=== PATIENT | male | born 1960 | race Caucasian/White ===

== ENCOUNTER 2018-04-19 09:42 | Outpatient (REF) | payer MEDICAID, SELFPAY ==
[2018-04-19 13:25] LABS: Hemoglobin A1C 6.7 % (4.5-6.2)
[2018-04-20 15:41] LABS: Fructosamine 208 mcmol/L (200 - 285)
== END 2018-04-19 10:02 ==
LOC: NCHCN 09:42
PROVIDERS: PCP Family Medicine; Visit Provider Family Medicine
DX: E11.9 Type 2 diabetes mellitus without complications (principal); R73.9 Hyperglycemia, unspecified
CPT/HCPCS: 82985; 83036

== ENCOUNTER 2018-07-30 06:23 | Day surgery (SDC) | payer MEDICAID, SELFPAY ==
--- NOTE | 2018-07-27 08:52 | DSU.FORM ---
Attempted to call pat with arrival time. Patient phone has been disconnected. Josie at Dr. Manzanares office is aware. Place a call to patient contact his sister. She will TRY to contact patient with info.
--- NOTE | 2018-07-29 12:48 | POEE_ITS ---
History of Present Illness Chief Complaint: Progressive decreased vision, right eye Narrative: The patient is a 57-year-old male with history of progressive decreased vision in both eyes at both distance and near. On examination he was noted to have significant bilateral nuclear and cortical cataracts with visual acuity of 20/100 OD, 20/80 OS. The option of cataract surgery was offered to the patient and he wished to proceed. NOTE: The Chief Complaint, HPI, Past Medical History, Past Surgical History, Family History, Social History, Medications, and complete Ophthalmic Exam with detailed Assessment and Plan have already been documented in the patient's outpatient ophthalmic record and are not covered again in detail here. 57-year-old 57-year-old [facility] Medical History Cortical cataract of right eye (Acute) Nuclear sclerotic cataract of right eye (Acute) Social History Smoking/Tobacco Use Status: Current every day Meds Home Medications Medication Instructions Recorded Confirmed Type aspirin [Lo-Dose Aspirin] 81 mg PO DAILY 07/14/13 07/26/18 History glipizide 10 mg PO BID 07/14/13 06/27/14 History insulin glargine [Lantus] 42 - 44 units SQ HS 07/14/13 07/26/18 History lisinopril 10 mg PO HS 07/14/13 07/26/18 History metformin [Glucophage] 1,000 mg PO BID 07/14/13 07/26/18 History sitagliptin [Januvia] 100 mg PO HS 07/14/13 07/26/18 History simvastatin 40 mg PO HS 09/26/13 07/26/18 History diclofenac potassium 50 mg PO BID PRN PRN #14 tablet 06/27/14 Rx insulin aspart U-100 [Novolog] units SQ DIRECTED 06/27/14 06/27/14 History diazepam 5 mg PO BID 07/26/18 07/26/18 History Allergies Allergy/AdvReac Type Severity Reaction Status Date / Time No Known Allergies Allergy Unverified 06/27/14 09:25 Exam OCULAR EXAM:: Most recent ocular examination is significant for uncorrected visual acuity of 20/100 OD, 20/80 OS. Best corrected vision is 20/70 in each eye. Intraocular pressure is 17 OD, 16 OS. Extraocular motility is normal. Pupils equal, round, and reactive without afferent pupillary defect slit-lamp examination is significant for pupils dilating only to 3.5 mm OU. 3+ yellow nuclear cataract OU with 1+ cortical cataract. Funduscopic examination reveals disc cupping of 0.25 OU with normal vessels, macula, peripheral retina and vitreous. BRIGHTNESS ACUITY TESTING (BAT):: Brightness acuity testing of the right eye off 20/100. Low is 20/100. Medium is a 20/200. High is 20/400. Assessment and Plan (1) Nuclear sclerotic cataract of right eye: Current visit: No Status: Acute Assessment: Visually significant cataract, right eye. Plan: Cataract extraction with intraocular lens implantation, right eye (2) Cortical cataract of right eye: Current visit: No Status: Acute Assessment: Visually significant cataract, right eye. Plan: Cataract extraction with intraocular lens implantation, right eye Note: NOTE:: The details of the planned surgery, including the risks, indications,limitations,expectations,outcome and possible complications were explained to the patient. The patient understands the complications including, but not limited to: infection, hemorrhage, posterior dislocation of the lens or nuclear fragments which may require the intervention of a vitreoretinal surgeon, possible loss of the eye, or from anesthetic complications. The patient has been made aware of the option of not having surgery, that vision following surgery may not be equal to that prior to surgery, and that the planned surgery may not achieve the intended results. Following this discussion, which the patient appeared to understand, the patient wishes to proceed with cataract surgery with lens implantation of the affected eye to improve and maximize vision.
--- NOTE | 2018-07-29 18:35 | W.PM.DSUDISC ---
Discharge Plan Discharge Details Attending Provider: Derek Manzanares Primary Care Provider: Jamilah Harman Home Meds and New Rx's Prescriptions: No Action Lantus U-100 Insulin 100 UNIT/ML solution 42 - 44 units SQ HS RF: 0 glipizide 10 MG tablet 10 mg PO BID RF: 0 aspirin [Lo-Dose Aspirin] 81 MG tablet,delayed release (DR/EC) 81 mg PO DAILY RF: 0 metformin [Glucophage] 1,000 MG tablet 1,000 mg PO BID RF: 0 lisinopril 5 MG tablet 10 mg PO HS RF: 0 Januvia 100 MG tablet 100 mg PO HS RF: 0 simvastatin 20 MG tablet 40 mg PO HS RF: 0 Novolog PenFill U-100 Insulin 100 UNIT/ML cartridge SQ DIRECTED RF: 0 diclofenac potassium 50 MG tablet 50 mg PO BID PRN PRNQty: 14 RF: 0 diazepam 5 mg Tablet 5 mg PO BID RF: 0 Discharge Instructions Stand Alone Forms: Post-op Topical Cataract, Tammie Obregon (DSU) DS: Diagnosis Discharge Diagnosis (1) Status post cataract extraction and insertion of intraocular lens of right eye: Status: Chronic
[2018-07-30 06:42] VITALS: BP 132/72; PULSE 76; RESP 18; TEMP 36.3; O2SAT 94
[2018-07-30] MEDS: Tetracaine 0.5% 4 ML BTL OD ×6 (06:50→08:03)
[2018-07-30] MEDS: Tropicam./Phenyleph. (1/2.5%) 5 ML BTL OD ×3 (06:51→06:58)
[2018-07-30] MEDS: Lidocaine 2% Jelly 6 ML SYR (07:33)
[2018-07-30] MEDS: Povidone-Iodine Ophth 30 ML BTL (07:33)
[2018-07-30] MEDS: Lidocaine 1% Pres-Free 5 ML VIAL (07:40)
[2018-07-30] MEDS: Balanced Salt Soln.-PLUS 500 ML BAG (07:41)
[2018-07-30] MEDS: Duovisc Viscoelastic System EACH 1 EACH (07:42)
[2018-07-30] MEDS: Trypan Blue 0.06% 0.5 ML SYR (07:43)
--- NOTE | 2018-07-30 08:18 | ROE_ITS ---
Date of service: 07/30/18 Time of Service: 08:17 Operative Note DATE OF PROCEDURE: 07/30/18 PRE-OP DIAGNOSIS: Cataract, right eye, with poor red reflex PROCEDURE: Cataract extraction using phacoemulsification with intraocular lens implantation, right eye, using capsular staining with Vision Blue SURGEON: Derek Manzanares ANESTHESIA: MAC (with local sub-tenon's anesthetic injection) PATHOLOGY: none sent COMPLICATIONS: None Patient was transported to: same day Patient's condition: stable Implants: Brendan and Brendan / [employer] Tecnis [id number] Indications: Progressive visual loss due to cataract, right eye Procedure Description: CATARACT SURGERY OPERATIVE REPORT PREOPERATIVE DIAGNOSIS: 1. Dense nuclear/cortical cataract, right eye 2. Poor red reflex secondary to #1 POSTOPERATIVE DIAGNOSIS: Same OPERATION: 1. Cataract extraction using phacoemulsification with posterior chamber intraocular lens implant, right eye. 2. Capsular staining with Vision Blue IOL: IOL Shipping/Receiving Clerk/Model: Brendan & Brendan / EDMUNDO Tecnis [id number] IOL Power: + 22.0 diopters IOL Serial Number: [id number] Optic Diameter: 6.0mm Haptic/Overall Diameter: 13.0mm PHACO INFO: Doc adicate timeadsurion Vision System with OZil and Active Fluidics Cumulative Dispersed Energy (CDE): 14.61 seconds SURGEON: Derek Manzanares MD, [place] ANESTHESIA: Monitored Anesthesia Care (MAC), with local sub-tenon's anesthetic infiltration COMPLICATIONS: None SPECIMENS: None INDICATIONS FOR PROCEDURE: The patient is a 57-year old male with history of aggressive decreased vision in both eyes secondary to the development of significant nuclear and cortical cataract. Visual acuity measures 20/100 in the right eye. He is significantly symptomatic that he desired cataract surgery and attempt to improve and maximize his vision. PROCEDURE: The correct surgical eye was identified and marked as the right eye and the pupil was dilated in the preoperative area using mydriatics, cycloplegics, and NSAIDS (except in aspirin allergic patients). No sedation was given. The patient was brought to the operating room where cardiopulmonary monitoring was instituted and surgical time-out was performed, confirming the correct operative eye and IOL power. The pupil was noted to dilate to 6 mm. Topical anesthesia was administered and ophthalmic povidone-iodine 5% was instilled into the conjunctival fornices. Lidocaine gel was applied to the cornea and the larry-ocular area was prepped with Betadine 10% solution and draped in the usual sterile fashion for intraocular surgery, including an aperture drape. A Tegaderm transparent film dressing was cut in half and used to cover the lashes and lid margins. Care was taken to sequester the lashes and lid margins under the Tegaderm dressing. A lid speculum was placed between the lids of the operative eye and the Glenna-Lianet operating microscope was maneuvered into position. Flash scissors were then used to make a conjunctival buttonhole approximately 6mm posterior to the limbus in the inferonasal quadrant. Blunt dissection was carried out to expose bare sclera, and a blunt-tipped sub-tenon?s anesthesia cannula was introduced and passed posteriorly along the globe where non- preserved plain lidocaine was injected into posterior sub-Tenon?s space. A si deport knife was used to make a paracentesis port at the 7:00 position. Air was injected into the anterior chamber, followed by Vision Blue, which was painted over the anterior capsule and then irrigated out with BSS. The anterior chamber was filled with Viscoat. A 2.4mm keratome knife was used to create a half- thickness groove at the limbus and then to construct a three-plane near-clear corneal tunnel extending 2.0mm into clear cornea at the 10:00 position. A flap was raised on the anterior capsule and capsulorhexis forceps were used to complete a continuous curvilinear capsulorhexis of 5.0 mm. Balanced salt solution was then used to perform cortical cleaving hydrodissection and nuclear hydrodelineation until the lens could be freely rotated within the capsular bag. The lens nucleus was then disassembled and removed within the capsular bag and iris plane using phacoemulsification. The pupil constricted to 3 mm during phacoemulsification, making visualization difficult. Abundant Viscoat was used to help in pupillary mydriasis and to protect the corneal endothelium during nuclear disassembly/removal. Residual cortical material was removed using the Transformer I/A handpiece. The posterior capsule was carefully polished to remove as much residual lens epithelial cells as safely possible. The capsular bag was then inflated and the anterior chamber deepened with Provisc. The lens implant described above was inserted into the capsular bag using the EDMUNDO [place] Injector. A Kuglen hook was used to dial the IOL into position. Residual viscoelastic was then removed first from posterior to the IOL, then from the anterior chamber using the I/A handpiece. The lens implant was noted to center nicely within the capsular bag. The incisions were stromally hydrated, and the anterior chamber was reformed using BSS. Then 0.4cc of moxifloxacin 1.5mg/ml were injected into the capsular bag and anterior chamber. The incisions were checked with a Weck spear and found to be secure. Several drops of ophthalmic povidone-iodine 5% were then applied to the eye followed by two drops of Imprimis combination moxifloxacin/dexamethasone solution. The drapes were removed and a clear plastic protective eye shield was placed over the eye. The patient was then returned to Same Day Surgery in stable condition.
[2018-07-30 08:40] VITALS: BP 134/78; PULSE 71; RESP 18; TEMP 36.7; O2SAT 94
== END 2018-07-30 08:45 | disposition home or self-care (01) ==
LOC: SUR 06:23
PROVIDERS: PCP Family Medicine; Visit Provider Ophthalmology
PROC: (CPT 66982; principal; 2018-07-30 07:30)
DX: H25.811 Combined forms of age-related cataract, right eye (principal); H35.89 Other specified retinal disorders; J44.9 Chronic obstructive pulmonary disease, unspecified; E11.9 Type 2 diabetes mellitus without complications; Z79.4 Long term (current) use of insulin; I10 Essential (primary) hypertension; G47.33 Obstructive sleep apnea (adult) (pediatric)
CPT/HCPCS: 66982; V2632

== ENCOUNTER 2018-08-13 08:17 | Day surgery (SDC) | payer MEDICAID, SELFPAY ==
--- NOTE | 2018-08-12 18:43 | POEE_ITS ---
History of Present Illness Chief Complaint: Progressive decreased vision, left eye Narrative: Patient is a 57-year-old male with history of progressive decreased vision in both eyes at both distance and near. On examination he was noted to have bilateral nuclear and cortical cataracts with visual acuity of 20/100 OD, 20/80 OS. The option of cataract surgery was offered to the patient and he wished to proceed. He underwent cataract surgery in the right eye on 07/30/2018. Postoperatively he has regained uncorrected vision of 20/40 in the right eye. He now presents for cataract surgery in the left eye. NOTE: The Chief Complaint, HPI, Past Medical History, Past Surgical History, Family History, Social History, Medications, and complete Ophthalmic Exam with detailed Assessment and Plan have already been documented in the patient's outpatient ophthalmic record and are not covered again in detail here. [facility] Medical History Cortical cataract of left eye (Acute) Nuclear sclerotic cataract of left eye (Acute) Cortical cataract of right eye (Resolved) Nuclear sclerotic cataract of right eye (Resolved) Surgical History Status post cataract extraction and insertion of intraocular lens of right eye (Chronic 07/30/18) Social History Smoking and Tabacco status: Current every day Meds Home Medications Medication Instructions Recorded Confirmed Type aspirin [Lo-Dose Aspirin] 81 mg PO DAILY 07/14/13 07/30/18 History glipizide 10 mg PO BID 07/14/13 06/27/14 History insulin glargine [Lantus] 42 - 44 units SQ HS 07/14/13 07/30/18 History lisinopril 10 mg PO HS 07/14/13 07/30/18 History metformin [Glucophage] 1,000 mg PO BID 07/14/13 07/30/18 History sitagliptin [Januvia] 100 mg PO HS 07/14/13 07/30/18 History simvastatin 40 mg PO HS 09/26/13 07/30/18 History diclofenac potassium 50 mg PO BID PRN PRN #14 tablet 06/27/14 Rx insulin aspart U-100 [Novolog] units SQ DIRECTED 06/27/14 06/27/14 History diazepam 5 mg PO BID 07/26/18 07/30/18 History Allergies Allergy/AdvReac Type Severity Reaction Status Date / Time No Known Allergies Allergy Unverified 07/30/18 06:34 Exam OCULAR EXAM:: Most recent ocular examination revealed uncorrected vision of 20/40 OD, 20/80 OS. Intraocular pressure was 16 OD, 16 OS. Extraocular motility is normal. Pupils equal, round, and reactive without afferent pupillary defect. Slit-lamp examination is significant for pupils dilating only to 3.5 mm OU. There is a well-positioned PCIOL OD with trace posterior capsular haze. In the left eye a 3+ yellow nuclear sclerotic cataract is present with 1+ cortical cataract. Dilated funduscopic examination shows disc cupping of 0.25 OU with normal vessels, macula and vitreous. Background diabetic retinopathy is present in the mid periphery OU. BRIGHTNESS ACUITY TESTING (BAT):: Brightness acuity testing of the left eye off is 20/80. Low is 20/100. Medium is 20/200. High is 20/400. Assessment and Plan (1) Nuclear sclerotic cataract of left eye: Current visit: No Status: Acute Assessment: Visually significant cataract, left eye. Plan: Cataract extraction with intraocular lens implantation, left eye (2) Cortical cataract of left eye: Current visit: No Status: Acute Assessment: Visually significant cataract, left eye. Plan: Cataract extraction with intraocular lens implantation, left eye Note: NOTE:: The details of the planned surgery, including the risks, indications,limitations,expectations,outcome and possible complications were explained to the patient. The patient understands the complications including, but not limited to: infection, hemorrhage, posterior dislocation of the lens or nuclear fragments which may require the intervention of a vitreoretinal surgeon, possible loss of the eye, or from anesthetic complications. The patient has been made aware of the option of not having surgery, that vision following surgery may not be equal to that prior to surgery, and that the planned surgery may not achieve the intended results. Following this discussion, which the patient appeared to understand, the patient wishes to proceed with cataract surgery with lens implantation of the affected eye to improve and maximize vision.
[2018-08-13 08:37] VITALS: BP 188/96; PULSE 76; RESP 16; TEMP 35.4; O2SAT 98
[2018-08-13] MEDS: Tetracaine 0.5% 4 ML BTL OS ×4 (08:59→11:04)
[2018-08-13] MEDS: Tropicam./Phenyleph. (1/2.5%) 5 ML BTL OS ×3 (08:59→09:08)
[2018-08-13] MEDS: Trypan Blue 0.06% 0.5 ML SYR (11:03)
[2018-08-13] MEDS: Balanced Salt Soln.-PLUS 500 ML BAG (11:05)
[2018-08-13] MEDS: Lidocaine 2% Jelly 6 ML SYR (11:05)
[2018-08-13] MEDS: Duovisc Viscoelastic System EACH 1 EACH ×2 (11:06→11:37)
[2018-08-13] MEDS: Povidone-Iodine Ophth 30 ML BTL (11:07)
[2018-08-13] MEDS: Lidocaine 1% Pres-Free 5 ML VIAL (11:08)
--- NOTE | 2018-08-13 12:00 | W.PM.DSUDISC ---
Discharge Plan Discharge Details Attending Provider: Derek Manzanares Primary Care Provider: Jamilah Harman Home Meds and New Rx's Prescriptions: No Action Lantus U-100 Insulin 100 UNIT/ML solution 42 - 44 units SQ HS RF: 0 aspirin [Lo-Dose Aspirin] 81 MG tablet,delayed release (DR/EC) 81 mg PO DAILY RF: 0 metformin [Glucophage] 1,000 MG tablet 1,000 mg PO BID RF: 0 lisinopril 5 MG tablet 10 mg PO HS RF: 0 Januvia 100 MG tablet 100 mg PO HS RF: 0 simvastatin 20 MG tablet 40 mg PO HS RF: 0 Novolog PenFill U-100 Insulin 100 UNIT/ML cartridge SQ DIRECTED RF: 0 diclofenac potassium 50 MG tablet 50 mg PO BID PRN PRNQty: 14 RF: 0 Discharge Instructions Stand Alone Forms: Post-op Topical Cataract, Tammie Obregon (DSU) DS: Diagnosis Discharge Diagnosis (1) Status post cataract extraction and insertion of intraocular lens of left eye: Status: Chronic
--- NOTE | 2018-08-13 12:01 | W.PM.OP ---
Date of service: 08/13/18 Time of Service: 12:01 Operative Note PRE-OP DIAGNOSIS: Cataract with poor red reflex and poorly dilating pupil, left eye PROCEDURE: Cataract extraction using phacoemulsification with intraocular lens implant, left eye, with pupillary dilation using Malyugin Ring and capsular staining using Vision Blue SURGEON: Derek Manzanares ANESTHESIA: MAC (with sub-tenon's local infiltration) ESTIMATED BLOOD LOSS: 0 PATHOLOGY: none sent COMPLICATIONS: None Patient was transported to: same day Patient's condition: stable Implants: Brendan and Brendan / [employer] Tecnis [id number] Indications: Progressive decreased vision due to cataract, left eye Procedure Description: CATARACT SURGERY OPERATIVE REPORT PREOPERATIVE DIAGNOSIS: 1. Dense nuclear/cortical cataract, left eye 2. Poorly dilating pupil, left eye 3. Poor red reflex, left eye POSTOPERATIVE DIAGNOSIS: Same OPERATION: 1. Cataract extraction using phacoemulsification with posterior chamber intraocular lens implant, left eye. 2. Pupillary dilation and iris stabilization using Malyugin Ring 3. Capsular staining with VIsion Blue IOL: IOL Leather Worker/Model: Brendan & Brendan / EDMUNDO Tecnis [id number] IOL Power: + 22.50 diopters IOL Serial Number: [id number] Optic Diameter: 6.0mm Haptic/Overall Diameter: 13.0mm PHACO INFO: Doc Evgenurion Vision System with OZil and Active Fluidics Cumulative Dispersed Energy (CDE): 14.17 seconds SURGEON: Derek Manzanares MD, [place] ANESTHESIA: Monitored Anesthesia Care (MAC), with local sub-tenon's anesthetic infiltration COMPLICATIONS: None SPECIMENS: None INDICATIONS FOR PROCEDURE: The patient is a 57-year-old male with history of diminished visual acuity in both eyes. He was noted to have dense bilateral nuclear cataracts with moderate cortical cataracts as well. He has already undergone cataract surgery in his right eye and now presents for cataract surgery in the left eye. PROCEDURE: The correct surgical eye was identified and marked as the left eye and the pupil was dilated in the preoperative area using mydriatics, cycloplegics, and NSAIDS (except in aspirin allergic patients). Dilated pupil size was 5.0 mm. No IV or oral sedation was given. The patient was brought to the operating room where cardiopulmonary monitoring was instituted and surgical time-out was performed, confirming the correct operative eye and IOL power. Optimal positioning was challenging. Topical anesthesia was administered and ophthalmic povidone-iodine 5% was instilled into the conjunctival fornices. Lidocaine gel was applied to the cornea and the larry-ocular area was prepped with Betadine 10% solution and draped in the usual sterile fashion for intraocular surgery, including an aperture drape. A Tegaderm transparent film dressing was cut in half and used to cover the lashes and lid margins. Care was taken to sequester the lashes and lid margins under the Tegaderm dressing. A lid speculum was placed between the lids of the operative eye and the Glenna-Lianet operating microscope was maneuvered into position. Flash scissors were then used to make a conjunctival buttonhole approximately 6mm posterior to the limbus in the inferonasal quadrant. Blunt dissection was carried out to expose bare sclera, and a blunt-tipped sub-tenon?s anesthesia cannula was introduced and passed posteriorly along the globe where non-preserved plain lidocaine was injected into posterior sub-Tenon?s space. A sideport knife was used to make a paracentesis port superiorly/superiortemporally and air was injected into anterior chamber, followed by Vision Blue, which was painted over the anterior capsule and then irrigated out with BSS. The anterior chamber was then filled with Viscoat. A 2.4mm keratome knife was used to create a half-thickness groove at the limbus and then to construct a three-plane near-clear corneal tunnel extending 2.0mm into clear cornea temporally. A 7.0 mm Malyugin Ring was then inserted into the pupillary space and engaged with the Kuglen hook. A flap was raised on the anterior capsule and capsulorhexis forceps were used to complete a continuous curvilinear capsulorhexis of 5.0 mm. The patient's eye moved wildly throughout the procedure, making surgery more challenging Balanced salt solution was then used to perform cortical cleaving hydrodissection and nuclear hydrodelineation until the lens could be freely rotated within the capsular bag. The lens nucleus was then disassembled and removed within the capsular bag and iris plane using phacoemulsification. Abundant Viscoat was necessary to protect the corneal endothelium. Nucleus splitters were used to help and cracking the dense nucleus and to reduce stress on the zonules. Residual cortical material was removed using the Doc Transformer I/A handpiece. The posterior capsule was carefully polished to remove as much residual lens epithelial cells as safely possible. The capsular bag was then inflated and the anterior chamber deepened with Provisc. The lens implant described above was inserted into the capsular bag using the Hit[employer] [place] Injector. A Kuglen hook was used to dial the IOL into position. The Malyugin Ring was removed in the reverse order of its insertion. Residual viscoelastic was then removed first from posterior to the IOL, then from the anterior chamber using the I/A handpiece. The lens implant was noted to center nicely within the capsular bag. The incisions were stromally hydrated, and the anterior chamber was reformed using BSS. Then 0.4cc of moxifloxacin 1.5mg/ml were injected into the capsular bag and anterior chamber. The incisions were checked with a Weck spear and found to be secure. Several drops of ophthalmic povidone-iodine 5% were then applied to the eye followed by two drops of Imprimis combination moxifloxacin/dexamethasone solution. The drapes were removed and a clear plastic protective eye shield was placed over the eye. The patient was then returned to Same Day Surgery in stable condition.
--- NOTE | 2018-08-13 12:04 | ROE_ITS ---
Date of service: 08/13/18 Time of Service: 12:01 Operative Note PRE-OP DIAGNOSIS: Cataract with poor red reflex and poorly dilating pupil, left eye PROCEDURE: Cataract extraction using phacoemulsification with intraocular lens implant, left eye, with pupillary dilation using Malyugin Ring and capsular staining using Vision Blue SURGEON: Derek Manzanares ANESTHESIA: MAC (with sub-tenon's local infiltration) ESTIMATED BLOOD LOSS: 0 PATHOLOGY: none sent COMPLICATIONS: None Patient was transported to: same day Patient's condition: stable Implants: Brendan [employer] Brendan / [employer] Tecnis [id number] Indications: Progressive decreased vision due to cataract, left eye Procedure Description: CATARACT SURGERY OPERATIVE REPORT PREOPERATIVE DIAGNOSIS: 1. Dense nuclear/cortical cataract, left eye 2. Poorly dilating pupil, left eye 3. Poor red reflex, left eye POSTOPERATIVE DIAGNOSIS: Same OPERATION: 1. Cataract extraction using phacoemulsification with posterior chamber intraocular lens implant, left eye. 2. Pupillary dilation and iris stabilization using Malyugin Ring 3. Capsular staining with VIsion Blue IOL: IOL Agricultural Pilot/Model: Brendan & Brendan / EDMUNDO Tecnis [id number] IOL Power: + 22.50 diopters IOL Serial Number: [id number] Optic Diameter: 6.0mm Haptic/Overall Diameter: 13.0mm PHACO INFO: Doc LIFEmeeurion Vision System with OZil and Active Fluidics Cumulative Dispersed Energy (CDE): 14.17 seconds SURGEON: Derek Manzanares MD, [place] ANESTHESIA: Monitored Anesthesia Care (MAC), with local sub-tenon's anesthetic infiltration COMPLICATIONS: None SPECIMENS: None INDICATIONS FOR PROCEDURE: The patient is a 57-year-old male with history of diminished visual acuity in both eyes. He was noted to have dense bilateral nuclear cataracts with moderate cortical cataracts as well. He has already undergone cataract surgery in his right eye and now presents for cataract surgery in the left eye. PROCEDURE: The correct surgical eye was identified and marked as the left eye and the pupil was dilated in the preoperative area using mydriatics, cycloplegics, and NSAIDS (except in aspirin allergic patients). Dilated pupil size was 5.0 mm. No IV or oral sedation was given. The patient was brought to the operating room where cardiopulmonary monitoring was instituted and surgical time-out was performed, confirming the correct operative eye and IOL power. Optimal positioning was challenging. Topical anesthesia was administered and ophthalmic povidone-iodine 5% was instilled into the conjunctival fornices. Lidocaine gel was applied to the cornea and the larry-ocular area was prepped with Betadine 10% solution and draped in the usual sterile fashion for intraocular surgery, including an aperture drape. A Tegaderm transparent film dressing was cut in half and used to cover the lashes and lid margins. Care was taken to sequester the lashes and lid margins under the Tegaderm dressing. A lid speculum was placed between the lids of the operative eye and the Glenna-Lianet operating microscope was maneuvered into position. Flash scissors were then used to make a conjunctival buttonhole approximately 6mm posterior to the limbus in the inferonasal quadrant. Blunt dissection was carried out to expose bare sclera, and a blunt-tipped sub-tenon?s anesthesia cannula was introduced and passed posteriorly along the globe where non- preserved plain lidocaine was injected into posterior sub-Tenon?s space. A sideport knife was used to make a paracentesis port superiorl y/superiortemporally and air was injected into anterior chamber, followed by Vision Blue, which was painted over the anterior capsule and then irrigated out with BSS. The anterior chamber was then filled with Viscoat. A 2.4mm keratome knife was used to create a half-thickness groove at the limbus and then to construct a three-plane near-clear corneal tunnel extending 2.0mm into clear cornea temporally. A 7.0 mm Malyugin Ring was then inserted into the pupillary space and engaged with the Kuglen hook. A flap was raised on the anterior capsule and capsulorhexis forceps were used to complete a continuous curvilinear capsulorhexis of 5.0 mm. The patient's eye moved wildly throughout the procedure, making surgery more challenging Balanced salt solution was then used to perform cortical cleaving hydrodissection and nuclear hydrodelineation until the lens could be freely rotated within the capsular bag. The lens nucleus was then disassembled and removed within the capsular bag and iris plane using phacoemulsification. Abundant Viscoat was necessary to protect the corneal endothelium. Nucleus splitters were used to help and cracking the dense nucleus and to reduce stress on the zonules. Residual cortical material was removed using the Doc Transformer I/A handpiece. The posterior capsule was carefully polished to remove as much residual lens epithelial cells as safely possible. The capsular bag was then inflated and the anterior chamber deepened with Provisc. The lens implant described above was inserted into the capsular bag using the EDMUNDO [place] Injector. A Kuglen hook was used to dial the IOL into position. The Malyugin Ring was removed in the reverse order of its insertion. Residual viscoelastic was then removed first from posterior to the IOL, then from the anterior chamber using the I/A handpiece. The lens implant was noted to center nicely within the capsular bag. The incisions were stromally hydrated, and the anterior chamber was reformed using BSS. Then 0.4cc of moxifloxacin 1.5mg/ml were injected into the capsular bag and anterior chamber. The incisions were checked with a Weck spear and found to be secure. Several drops of ophthalmic povidone-iodine 5% were then applied to the eye followed by two drops of Imprimis combination moxifloxacin/dexamethasone solution. The drapes were removed and a clear plastic protective eye shield was placed over the eye. The patient was then returned to Same Day Surgery in stable condition.
== END 2018-08-13 12:25 | disposition home or self-care (01) ==
LOC: SUR 08:18
PROVIDERS: PCP Family Medicine; Visit Provider Ophthalmology
PROC: (CPT 66982; principal; 2018-08-13 10:30)
DX: H25.812 Combined forms of age-related cataract, left eye (principal); H57.09 Other anomalies of pupillary function; H35.89 Other specified retinal disorders; J44.9 Chronic obstructive pulmonary disease, unspecified; E11.9 Type 2 diabetes mellitus without complications; Z79.4 Long term (current) use of insulin; I10 Essential (primary) hypertension; G47.33 Obstructive sleep apnea (adult) (pediatric)
CPT/HCPCS: 66982; V2632

== ENCOUNTER 2018-09-26 10:14 | Outpatient (REF) | payer MEDICAID, SELFPAY ==
[2018-09-26 11:41] LABS: HCT 41.4 % (40.0-50.0); HGB 14.3 g/dL (13.5-17.5); Mean Corp. HGB Concentration 34.5 g/dL (32.0-36.0); Mean Corpuscular Hemoglobin 30.8 pg (27.0-33.0); Mean Platelet Volume 10.7 fL (8.0-11.0); Platelet Count 201 x1000/uL (130-400); RBC 4.65 m/cumm (4.50-6.00); RBC Distribution Width 13.2 % (11.8-14.1); White Blood Cell Count 10.66 k/cumm (4.4-10.8)
[2018-09-26 12:14] LABS: ALT 34 U/L (12-78); AST 20 U/L (15-37); Albumin 3.7 g/dL (3.4-5.0); Alkaline Phosphatase 91 U/L (46-116); Anion Gap 10.6 mmol/L (3-11); BUN 23 mg/dL (7-18); Bilirubin, Total 0.4 mg/dL (0.2-1.0); CO2 27.4 mmol/L (21.0-32.0); CREATININE 1.15 mg/dL (0.70-1.30); Calcium 9.5 mg/dL (8.5-10.1); Chloride 100 mmol/L (98-107); Cholesterol 137 mg/dL (50-200); Glucose 91 mg/dL (70-100); HDL Cholesterol 33 mg/dL (40-60); LDL CHOLESTEROL 73 mg/dL (<100); Potassium 4.6 mmol/L (3.5-5.1); Sodium 138 mmol/L (136-145); TSH (W/Ref FT4) 1.73 uIU/mL (0.358-3.74); Total Protein 7.1 g/dL (6.4-8.2); Triglyceride 183 mg/dL (30-150)
[2018-09-26 12:25] LABS: Hemoglobin A1C 7.4 % (4.5-6.2)
== END 2018-09-26 10:34 ==
LOC: NCHCN 10:14
PROVIDERS: PCP Family Medicine; Visit Provider Family Medicine
DX: E11.9 Type 2 diabetes mellitus without complications (principal); I10 Essential (primary) hypertension; E78.5 Hyperlipidemia, unspecified; R60.0 Localized edema
CPT/HCPCS: 80053; 80061; 83721; 85027; 83036; 84443

== ENCOUNTER 2018-09-28 02:23 | Outpatient (CLI) | payer MEDICAID, SELFPAY ==
--- NOTE | 2018-09-28 08:15 | DI.RAD_ITS ---
SYMPTOM/DIAGNOSIS: LT SHOULDER PAIN, M25.512 LEFT SHOULDER: Six views were obtained. There is faint calcification which appears to be associated with supraspinatus tendon consistent with a calcific peritendinitis. Minimal hypertrophic degenerative change of the AC joint noted. Glenohumeral joint appears intact. No other significant bony abnormality is seen. CONCLUSION: 1. Mild AC joint DJD. 2. 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
== END 2018-09-28 02:43 ==
PROVIDERS: PCP Family Medicine; Visit Provider Family Medicine
DX: M25.512 Pain in left shoulder (principal); M75.82 Other shoulder lesions, left shoulder; M19.012 Primary osteoarthritis, left shoulder
CPT/HCPCS: 73030

== ENCOUNTER 2018-10-11 00:45 | Outpatient (CLI) | payer MEDICAID, SELFPAY ==
--- NOTE | 2018-10-11 10:30 | MERGE_ITS ---
*[facility]* *[facility]* [address] [place] [address] Date of study: 10/11/2018 Transthoracic Echocardiography M-mode, complete 2D, complete spectral Doppler, and color Doppler *STUDY CONCLUSIONS* Summary: 1. Left ventricle: The cavity size was normal. Wall thickness was increased in a pattern of moderate LVH. Systolic function was hyperdynamic. The estimated ejection fraction was 65-70%. Diastolic parameters were normal for age. There was no evidence of elevated ventricular filling pressure by Doppler parameters. 2. Mitral valve: There was mild regurgitation. 3. Left atrium: The atrium was moderately dilated. 4. Right ventricle: The cavity size was mildly dilated. Systolic function was normal. 5. Right atrium: The atrium was moderately dilated. 6. Atrial septum: No defect or patent foramen ovale was identified. 7. Pulmonary arteries: Pulmonary systolic pressure was in the range of 15mm Hg to 25mm Hg. 8. Inferior vena cava: The vessel was patent and normal in size. The respirophasic diameter changes were in the normal range (greater than or equal to 50%), consistent with normal central venous pressure. *PATIENT PRESENTATION* Height: 182.9cm ((72in) ) S/D Pressure: 144 / 76 Weight: 149.7kg ((329.3lb) ) BSA: 2.83m^2 Test start time: 10:35 AM. Test stop time: 11:35 AM. ORDERING Jamilah Harman REFERRING Jamilah Harman PERFORMING Unknown PERFORMING [facility] OPERATIONS INTELLIGENCE SUPERINTENDENT Shahla Koehler, (R)(CT), CHANEL *PROCEDURE DATA* Procedure information: This study was interpreted by [facility]. Pertinent images and digital data are archived for permanent storage and are available for subsequent review. Comparison was made to the study of 03/24/2014. Study status: Routine. Transthoracic echocardiography. M-mode, complete 2D, complete spectral Doppler, and color Doppler. A Transthoracic Echocardiogram was performed. Scanning was performed from the parasternal, apical, subcostal, and suprasternal notch acoustic windows. Images were obtained using an [id number] cardiac ultrasound machine. Image quality was adequate. Study completion: The patient tolerated the procedure well. History: PMH: Bilateral leg edema 660.0, Diabetes mellitus E11.9. *CARDIAC ANATOMY* Left ventricle: The cavity size was normal. Wall thickness was increased in a pattern of moderate LVH. Systolic function was hyperdynamic. The estimated ejection fraction was 65-70%. Diastolic parameters were normal for age. There was no evidence of elevated ventricular filling pressure by Doppler parameters. Aortic valve: Trileaflet. Doppler: There was no stenosis. There was no regurgitation. VTI ratio of LVOT to aortic valve: 0.88. Valve area (VTI): 3.2cm^2. Indexed valve area (VTI): 1.1cm^2/m^2. Peak velocity ratio of LVOT to aortic valve: 0.82. Valve area (Vmax): 3cm^2. Indexed valve area (Vmax): 1cm^2/m^2. Mean velocity ratio of LVOT to aortic valve: 0.8. Valve area (Vmean): 2.9cm^2. Indexed valve area (Vmean): 1cm^2/m^2. Mean gradient (S): 2.9mm Hg. Peak gradient (S): 4.2mm Hg. Aorta: Aortic root: The aortic root was normal in size. Ascending aorta: The ascending aorta was normal in size. Mitral valve: Doppler: There was no evidence for stenosis. There was mild regurgitation. Valve area by pressure half-time: 4.7cm^2. Indexed valve area by pressure half-time: 1.7cm^2/m^2. Peak gradient (D): 2mm Hg. Left atrium: The atrium was moderately dilated. Atrial septum: No defect or patent foramen ovale was identified. Right ventricle: The cavity size was mildly dilated. Systolic function was normal. Pulmonic valve: Doppler: There was no evidence for stenosis. There was no significant regurgitation. Peak gradient (S): 3.8mm Hg. Tricuspid valve: Doppler: There was mild regurgitation. Pulmonary artery: Poorly visualized. Pulmonary systolic pressure was in the range of 15mm Hg to 25mm Hg. Right atrium: The atrium was moderately dilated. Pericardium: There was no pericardial effusion. Systemic veins: Inferior vena cava: Well visualized. The vessel was patent and normal in size. The respirophasic diameter changes were in the normal range (greater than or equal to 50%), consistent with normal central venous pressure. Baseline ECG: Normal sinus rhythm. Measurements Left ventricle Value Reference LV ID, ED, PLAX 5.4 cm 3.5 - 6.0 LV ID, ES, PLAX 3.2 cm 2.1 - 4.0 LV PW thickness, ED, PLAX 1.3 cm LV end-diastolic volume, 1-p A2C 92 ml LV ejection fraction, 1-p A2C 67 % LV end-diastolic volume, 1-p A4C 106 ml LV ejection fraction, 1-p A4C 67 % LV e', lateral 0.086 m/sec LV E/e', lateral 8 LV e', medial 0.104 m/sec LV E/e', medial 7 LV e', average 0.095 m/sec LV E/e', average 8 Ventricular septum Value Reference IVS thickness, ED, PLAX 1.3 cm LVOT Value Reference LVOT ID, A-P 2.1 cm LVOT area 3.6 cm^2 LVOT peak velocity, S 0.84 m/sec LVOT mean velocity, S 0.66 m/sec LVOT VTI, S 21.2 cm LVOT peak gradient, S 2.8 mm Hg LVOT mean gradient, S 1.9 mm Hg Stroke volume (SV), LVOT DP 76 ml Stroke index (SV/bsa), LVOT DP 27 ml/m^2 Aortic valve Value Reference Aortic valve peak velocity, S 1 m/sec Aortic valve mean velocity, S 0.82 m/sec Aortic valve VTI, S 24.0 cm Aortic mean gradient, S 2.9 mm Hg Aortic peak gradient, S 4.2 mm Hg VTI ratio, LVOT/AV 0.88 Aortic valve area, VTI 3.2 cm^2 Velocity ratio, peak, LVOT/AV 0.82 Aortic valve area, peak velocity 3 cm^2 Velocity ratio, mean, LVOT/AV 0.8 Aortic valve area, mean velocity 2.9 cm^2 Aortic valve area/bsa, mean velocity 1 cm^2/m^2 Aorta Value Reference Aortic root ID, ED 4.1 cm Ascending aorta ID, A-P, S 3.6 cm Left atrium Value Reference LA ID, A-P, ES 3.9 cm LA ID/bsa, A-P 1.4 cm/m^2 <=2.2 LA area, ES, A4C (H) 34.8 cm^2 8.8 - 23.4 LA volume/bsa, ES, 1-p A4C 59 ml/m^2 LA/aortic root ratio 0.93 Mitral valve Value Reference Mitral E-wave peak velocity 0.71 m/sec Mitral A-wave peak velocity 0.56 m/sec Mitral deceleration time 161 ms 150 - 230 Mitral pressure half-time 47 ms Mitral peak gradient, D 2 mm Hg Mitral E/A ratio, peak 1.28 Mitral valve area, PHT, DP 4.7 cm^2 Tricuspid valve Value Reference Tricuspid regurg peak velocity 2.4 m/sec Tricuspid peak RV-RA gradient 23.2 mm Hg Right atrium Value Reference RA area, ES, A4C (H) 23.5 cm^2 8.3 - 19.5 Pulmonic valve Value Reference Pulmonic peak gradient, S 3.8 mm Hg Legend: (L) and (H) kirk values outside specified reference range. I have personally reviewed the images and have reviewed and edited the reported findings. Electronically signed by Margarito Pan MD 10/11/2018 16:48
== END 2018-10-11 01:05 ==
PROVIDERS: PCP Family Medicine; Visit Provider Family Medicine
DX: R60.0 Localized edema (principal); E11.9 Type 2 diabetes mellitus without complications; I34.0 Nonrheumatic mitral (valve) insufficiency; I51.7 Cardiomegaly
CPT/HCPCS: 93306

== ENCOUNTER 2018-12-05 08:23 | Emergency (ER) | payer MEDICAID, SELFPAY ==
[2018-12-05 08:28] VITALS: BP 135/73; PULSE 78; RESP 16; TEMP 36.4; O2SAT 97
--- NOTE | 2018-12-05 08:36 | W.ED.GENAD ---
Discharge Plan Disposition Patient Disposition: HOME Condition: Fair Discharge Details Chief Complaint: Orthopedic Clinical Impression: Bilateral edema of lower extremity, Acute pain of right foot Primary Care Provider: Jamilah Harman ED Provider: Sima Olmedo Home Meds and New Rx's Prescriptions: Continued Lantus U-100 Insulin 100 UNIT/ML solution 42 - 44 units SQ HS RF: 0 aspirin [Lo-Dose Aspirin] 81 MG tablet,delayed release (DR/EC) 81 mg PO DAILY RF: 0 metformin [Glucophage] 1,000 MG tablet 1,000 mg PO BID RF: 0 lisinopril 5 MG tablet 10 mg PO HS RF: 0 Januvia 100 MG tablet 100 mg PO HS RF: 0 simvastatin 20 MG tablet 40 mg PO HS RF: 0 Novolog PenFill U-100 Insulin 100 UNIT/ML cartridge SQ DIRECTED RF: 0 diclofenac potassium 50 MG tablet 50 mg PO BID PRN PRNQty: 14 RF: 0 Discharge Instructions Instructions: Leg Pain (ED) Additional Instructions: Encourage rest, ice, elevation. Tylenol and ibuprofen as needed for discomfort. Please continue with postoperative shoe to help with any discomfort you may be experiencing. You will need compression hose for both of your lower extremities. Please avoid salty foods as discussed. Please follow-up with primary care as soon as possible, please call today to schedule appointment. If you develop shortness of breath, difficulty breathing, chest pain, fever/chills or noticed changes in the skin over the area of discomfort please seek care urgently once again. Referrals: Jamilah Harman MD [Primary Care Provider] - Discharge Data Discharge Date/Time-TO BE ENTERED AT DEPARTURE: 12/05/18 09:47 Medical Decision Making Patient is a 58-year-old male presents today with chief complaint of right foot pain. He reports he has had this pain for the past several months and has been frustrated and increasing. Also noted increased swelling in the bilateral lower extremities. Has been trying to wear compressive hose over the lower remedies but these do not include the feet. He has not been addressed by his primary care for this. Reports that he was having to wait until his upcoming appointment but feels that the swelling and discomfort has increased to a point that he needs evaluation at this time. Denies any fevers or chills. No known trauma. He denies any paresthesias. Patient does have diabetes. Has not been evaluated historically by a senior project coordinator. Patient is point tender over the base of the proximal fifth metatarsal. I am concerned for possible fracture given location and patient's history of diabetes despite his intact sensation and lack of trauma. I advised he will need to elevate his lower extremities. We discussed that he may need referral to senior project coordinator. Also advised on general care for his BLE edema. X-ray reviewed by myself as well as radiology with no acute findings noted. Discussed these findings with the patient. Advised this is contusion and likely chronic edema. Advised he will need to discuss this further with his primary care as he may benefit from a diuretic. We also discussed dietary changes in the patient's diet mainly consists of hotdogs lunch meat. Advised that he try to stay away from processed foods particularly those containing high salt. Encourage elevation and compression hose. He will be fitted with a postop shoe to help with the foot discomfort. Encourage rest, ice, elevation. Tylenol and ibuprofen as needed for discomfort. We discussed new/worsening symptoms when to seek care urgently once again. All of his questions and concerns were addressed and he is in agreement this plan HPI General Mode of arrival: ambulatory. Date/Time Provider Initiated Documentation: 12/05/18 08:36. Limitations to Documentation: no limitations. Information obtained by: patient and RN notes reviewed. History of Present Illness 58 year old M presents to the emergency department with the chief complaint of Right foot pain, described as moderate, with intensity rated at 7. Quality is described as stabbing, and is localized to the right and lower extremity. Patient reports no radiation. Patient started experiencing this month(s) and it has been constant. Immobilization improves symptom(s), Movement worsens symptoms . Patient notes denies chest pain, fever/chills, rash and weakness. Patient did receive the following treatments prior to arrival, none Related Data Home Medications Medication Instructions Recorded Confirmed Januvia 100 mg PO HS 07/14/13 12/05/18 Lantus U-100 Insulin 42 - 44 units SQ HS 07/14/13 12/05/18 aspirin [Lo-Dose Aspirin] 81 mg PO DAILY 07/14/13 12/05/18 lisinopril 10 mg PO HS 07/14/13 12/05/18 metformin [Glucophage] 1,000 mg PO BID 07/14/13 12/05/18 simvastatin 40 mg PO HS 09/26/13 12/05/18 Novolog PenFill U-100 Insulin units SQ DIRECTED 06/27/14 11/05/18 diclofenac potassium 50 mg PO BID PRN PRN #14 tab 06/27/14 12/05/18 Previous Rx's Medication Instructions Recorded diclofenac potassium 50 mg PO BID PRN PRN #14 tab 06/27/14 Allergies Allergy/AdvReac Type Severity Reaction Status Date / Time No Known Allergies Allergy Unverified 12/05/18 08:29 General Stated Complaint: Orthopedic JOÃO: 4 Review of Systems Constitutional Reports as per HPI, Denies chills, Denies fever(s) and Denies weakness Cardiovascular Reports as per HPI Respiratory Reports as per HPI and Denies cough Musculoskeletal Reports as per HPI, Denies numbness, Denies radiating pain into limb and Denies tingling Integumentary/Breasts Reports as per HPI, Denies rash and Denies wounds Neurologic Reports as per HPI, Denies numbness, Denies tingling, Denies paresthesias and Denies weakness [facility] Medical History Low back pain (Chronic) Tobacco abuse (Chronic) Stage 2 moderate COPD by GOLD classification (Chronic) Obstructive sleep apnea (Chronic) Hyperlipidemia (Chronic) Hypertension (Chronic) Diabetes with retinopathy (Chronic) Diabetes mellitus (Chronic) Tendonitis of left rotator cuff (Acute) Cortical cataract of left eye (Resolved) Cortical cataract of right eye (Resolved) Nuclear sclerotic cataract of left eye (Resolved) Nuclear sclerotic cataract of right eye (Resolved) Surgical History Status post AC joint resection (Chronic) Status post cataract extraction and insertion of intraocular lens of left eye (Chronic 08/13/18) Status post cataract extraction and insertion of intraocular lens of right eye (Chronic 07/30/18) Social History Smoking/Tobacco Use Status: Current every day Alcohol Intake: current Alcohol Intake frequency: holidays/special occasions only Drug use: Rarely Do you feel safe at home: Yes Do you feel safe in your relationship?: Yes Exam Const General: cooperative, comfortable, no acute distress, well developed and well groomed Nutritional Appearance: well nourished and obese Orientation: alert and awake Resp Effort & Inspection: normal respiratory effort, able to speak in complete sentences and no respiratory distress Cardio Rate: regular rate Rhythm: regular rhythm Skin General skin exam: no rashes or lesions noted Lesions: no lesions Rashes: no rashes Trauma: no lacerations or abrasions Neuro General: alert and awake Cognition: normal cognition Speech: speech normal Gait: antalgic Motor: muscle tone normal throughout Sensory Exam: no sensory deficits noted Extrem Left lower extremity: normal capillary refill, edema Details: pitting and 2+, lower leg Details: pitting edema; no erythema, no tenderness, no localized swelling, no palpable cords, no abrasions, no ecchymosis, no crepitus, no deformity and no unusual warmth, ankle Details: pitting edema and normal ROM; no tenderness, no crepitus and achilles tendon exam normal and foot Details: normal capillary refill, tenderness Location: of the base of the 5th metatarsal, toes with normal ROM, edema, vascular exam Details: dorsalis pedis pulse present and posterior tibial pulse present and motor-sensory exam Details: light-touch normal; no unusual warmth, no abrasions, no lacerations, no ecchymosis and no crepitus Psych Appearance: grossly normal and well kempt Mental Status: mental status grossly normal Speech and Movement: speech and movement normal Course Vital Signs Temperature 36.4 C L 12/05/18 08:28 Pulse 78 12/05/18 08:28 Respiratory Rate 16 12/05/18 08:28 Blood Pressure 135/73 12/05/18 08:28 Pulse Oximetry 97 12/05/18 08:28 Temperature 36.4 C L 12/05/18 08:28 Temperature Source Temporal Artery Scan 12/05/18 08:28 Pulse 78 12/05/18 08:28 Respiratory Rate 16 12/05/18 08:28 Respiratory Effort Non-Labored 12/05/18 08:32 Blood Pressure 135/73 12/05/18 08:28 Blood Pressure Position Sitting 12/05/18 08:28 Pulse Oximetry 97 12/05/18 08:28 Oxygen Delivery Method Room Air 12/05/18 08:28 Oxygen Flow Rate 0 12/05/18 08:28 Pain Level 7 12/05/18 08:33
--- NOTE | 2018-12-05 08:48 | DI.RAD_ITS ---
SYMPTOM/DIAGNOSIS: PAIN RIGHT FOOT: Three views. No acute fracture, dislocation or suspicious lytic or sclerotic lesions are seen. Minimal degenerative changes are seen in the foot. Vascular calcifications are present in the soft tissues. No radiopaque foreign bodies are present in the soft tissues. IMPRESSION: No acute abnormality.
--- NOTE | 2018-12-05 08:57 | ED.GENADUL_ITS ---
Discharge Plan Disposition Patient Disposition: HOME Condition: Fair Discharge Details Chief Complaint: Orthopedic Clinical Impression: Bilateral edema of lower extremity, Acute pain of right foot Primary Care Provider: Jamilah Harman ED Provider: Sima Olmedo Home Meds and New Rx's Prescriptions: Continued Lantus U-100 Insulin 100 UNIT/ML solution 42 - 44 units SQ HS RF: 0 aspirin [Lo-Dose Aspirin] 81 MG tablet,delayed release (DR/EC) 81 mg PO DAILY RF: 0 metformin [Glucophage] 1,000 MG tablet 1,000 mg PO BID RF: 0 lisinopril 5 MG tablet 10 mg PO HS RF: 0 Januvia 100 MG tablet 100 mg PO HS RF: 0 simvastatin 20 MG tablet 40 mg PO HS RF: 0 Novolog PenFill U-100 Insulin 100 UNIT/ML cartridge SQ DIRECTED RF: 0 diclofenac potassium 50 MG tablet 50 mg PO BID PRN PRNQty: 14 RF: 0 Discharge Instructions Instructions: Leg Pain (ED) Additional Instructions: Encourage rest, ice, elevation. Tylenol and ibuprofen as needed for discomfort. Please continue with postoperative shoe to help with any discomfort you may be experiencing. You will need compression hose for both of your lower extremities. Please avoid salty foods as discussed. Please follow-up with primary care as soon as possible, please call today to schedule appointment. If you develop shortness of breath, difficulty breathing, chest pain, fever/chills or noticed changes in the skin over the area of discomfort please seek care urgently once again. Referrals: Jamilah Harman MD [Primary Care Provider] - Discharge Data Discharge Date/Time-TO BE ENTERED AT DEPARTURE: 12/05/18 09:47 Medical Decision Making Patient is a 58-year-old male presents today with chief complaint of right foot pain. He reports he has had this pain for the past several months and has been frustrated and increasing. Also noted increased swelling in the bilateral lower extremities. Has been trying to wear compressive hose over the lower remedies but these do not include the feet. He has not been addressed by his primary care for this. Reports that he was having to wait until his upcoming appointment but feels that the swelling and discomfort has increased to a point that he needs evaluation at this time. Denies any fevers or chills. No known trauma. He denies any paresthesias. Patient does have diabetes. Has not been evaluated historically by a vehicle modification technician. Patient is point tender over the base of the proximal fifth metatarsal. I am concerned for possible fracture given location and patient's history of diabetes despite his intact sensation and lack of trauma. I advised he will need to elevate his lower extremities. We di scussed that he may need referral to vehicle modification technician. Also advised on general care for his BLE edema. X-ray reviewed by myself as well as radiology with no acute findings noted. Discussed these findings with the patient. Advised this is contusion and likely chronic edema. Advised he will need to discuss this further with his primary care as he may benefit from a diuretic. We also discussed dietary changes in the patient's diet mainly consists of hotdogs lunch meat. Advised that he try to stay away from processed foods particularly those containing high salt. Encourage elevation and compression hose. He will be fitted with a postop shoe to help with the foot discomfort. Encourage rest, ice, elevation. Tylenol and ibuprofen as needed for discomfort. We discussed new/worsening symptoms when to seek care urgently once again. All of his questions and concerns were addressed and he is in agreement this plan HPI General Mode of arrival: ambulatory . Date/Time Provider Initiated Documentation: 12/05/18 08:36 . Limitations to Documentation: no limitations . Information obtained by: patient and RN notes reviewed . History of Present Illness 58 year old M presents to the emergency department with the chief complaint of Right foot pain, described as moderate, with intensity rated at 7. Quality is described as stabbing, and is localized to the right and lower extremity. Patient reports no radiation. Patient started experiencing this month(s) and it has been constant. Immobilization improves symptom(s), Movement worsens symptoms . Patient notes denies chest pain, fever/chills, rash and weakness. Patient did receive the following treatments prior to arrival, none Related Data Home Medications Medication Instructions Recorded Confirmed Januvia 100 mg PO HS 07/14/13 12/05/18 Lantus U-100 Insulin 42 - 44 units SQ HS 07/14/13 12/05/18 aspirin [Lo-Dose Aspirin] 81 mg PO DAILY 07/14/13 12/05/18 lisinopril 10 mg PO HS 07/14/13 12/05/18 metformin [Glucophage] 1,000 mg PO BID 07/14/13 12/05/18 simvastatin 40 mg PO HS 09/26/13 12/05/18 Novolog PenFill U-100 Insulin units SQ DIRECTED 06/27/14 11/05/18 diclofenac potassium 50 mg PO BID PRN PRN #14 tab 06/27/14 12/05/18 Previous Rx's Medication Instructions Recorded diclofenac potassium 50 mg PO BID PRN PRN #14 tab 06/27/14 Allergies Allergy/AdvReac Type Severity Reaction Status Date / Time No Known Allergies Allergy Unverified 12/05/18 08:29 General Stated Complaint: Orthopedic JOÃO: 4 Review of Systems Constitutional Reports as per HPI, Denies chills, Denies fever(s) and Denies weakness Cardiovascular Reports as per HPI Respiratory Reports as per HPI and Denies cough Musculoskeletal Reports as per HPI, Denies numbness, Denies radiating pain into limb and Denies tingling Integumentary/Breasts Reports as per HPI, Denies rash and Denies wounds Neurologic Reports as per HPI, Denies numbness, Denies tingling, Denies paresthesias and Denies weakness [facility]LY [facility] Medical History Low back pain (Chronic) Tobacco abuse (Chronic) Stage 2 moderate COPD by GOLD classification (Chronic) Obstructive sleep apnea (Chronic) Hyperlipidemia (Chronic) Hypertension (Chronic) Diabetes with retinopathy (Chronic) Diabetes mellitus (Chronic) Tendonitis of left rotator cuff (Acute) Cortical cataract of left eye (Resolved) Cortical cataract of right eye (Resolved) Nuclear sclerotic cataract of left eye (Resolved) Nuclear sclerotic cataract of right eye (Resolved) Surgical History Status post AC joint resection (Chronic) Status post cataract extraction and insertion of intraocular lens of left eye (Chronic 08/13/18) Status post cataract extraction and insertion of intraocular lens of right eye (Chronic 07/30/18) Social History Smoking/Tobacco Use Status: Current every day Alcohol Intake: current Alcohol Intake frequency: holidays/special occasions only Drug use: Rarely Do you feel safe at home: Yes Do you feel safe in your relationship?: Yes Exam Const General: cooperative, comfortable, no acute distress, well developed and well groomed Nutritional Appearance: well nourished and obese Orientation: alert and awake Resp Effort & Inspection: normal respiratory effort, able to speak in complete sentences and no respiratory distress Cardio Rate: regular rate Rhythm: regular rhythm Skin General skin exam: no rashes or lesions noted Lesions: no lesions Rashes: no rashes Trauma: no lacerations or abrasions Neuro General: alert and awake Cognition: normal cognition Speech: speech normal Gait: antalgic Motor: muscle tone normal throughout Sensory Exam: no sensory deficits noted Extrem Left lower extremity: normal capillary refill, edema Details: pitting and 2+, lower leg Details: pitting edema; no erythema, no tenderness, no localized swelling, no palpable cords, no abrasions, no ecchymosis, no crepitus, no deformity and no unusual warmth, ankle Details: pitting edema and normal ROM; no tenderness, no crepitus and achilles tendon exam normal and foot Details: normal capillary refill, tenderness Location: of the base of the 5th metatarsal, toes with normal ROM, edema, vascular exam Details: dorsalis pedis pulse present and posterior tibial pulse present and motor-sensory exam Details: light-touch normal; no unusual warmth, no abrasions, no lacerations, no ecchymosis and no crepitus Psych Appearance: grossly normal and well kempt Mental Status: mental status grossly normal Speech and Movement: speech and movement normal Course Vital Signs Temperature 36.4 C L 12/05/18 08:28 Pulse 78 12/05/18 08:28 Respiratory Rate 16 12/05/18 08:28 Blood Pressure 135/73 12/05/18 08:28 Pulse Oximetry 97 12/05/18 08:28 Temperature 36.4 C L 12/05/18 08:28 Temperature Source Temporal Artery Scan 12/05/18 08:28 Pulse 78 12/05/18 08:28 Respiratory Rate 16 12/05/18 08:28 Respiratory Effort Non-Labored 12/05/18 08:32 Blood Pressure 135/73 12/05/18 08:28 Blood Pressure Position Sitting 12/05/18 08:28 Pulse Oximetry 97 12/05/18 08:28 Oxygen Delivery Method Room Air 12/05/18 08:28 Oxygen Flow Rate 0 12/05/18 08:28 Pain Level 7 12/05/18 08:33
== END 2018-12-05 09:47 | disposition home or self-care (01) ==
PROVIDERS: Emergency Provider Physician Assistant; PCP Family Medicine
DX: R60.0 Localized edema (principal); M79.671 Pain in right foot; I10 Essential (primary) hypertension; E11.9 Type 2 diabetes mellitus without complications
CPT/HCPCS: 29515; 99283; 73630; 99282

== ENCOUNTER 2018-12-26 08:24 | Outpatient (REF) | payer MEDICAID, SELFPAY ==
[2018-12-26 13:32] LABS: Anion Gap 9.5 mmol/L (3-11); BUN 24 mg/dL (7-18); CO2 27.5 mmol/L (21.0-32.0); Calcium 9.3 mg/dL (8.5-10.1); Chloride 102 mmol/L (98-107); Glucose 90 mg/dL (70-100); Potassium 4.7 mmol/L (3.5-5.1); Sodium 139 mmol/L (136-145)
== END 2018-12-26 08:44 ==
LOC: NCHCN 08:24
PROVIDERS: PCP Family Medicine; Visit Provider Family Medicine
DX: R60.0 Localized edema (principal)
CPT/HCPCS: 80048

== ENCOUNTER 2018-12-31 12:32 | Outpatient (REF) | payer MEDICAID, SELFPAY ==
[2018-12-31 14:20] LABS: COMMENT (LAB VIEW ONLY) 167.35 mg/dL
== END 2018-12-31 12:52 ==
LOC: NCHCN 12:32
PROVIDERS: PCP Family Medicine; Visit Provider Family Medicine
DX: E11.9 Type 2 diabetes mellitus without complications (principal)
CPT/HCPCS: 82043; 82570

== ENCOUNTER 2019-05-30 01:47 | Outpatient (CLI) | payer MEDICAID, SELFPAY ==
--- NOTE | 2019-05-30 15:05 | DI.US_ITS ---
EXAM: US CAROTID CLINICAL HISTORY: DIABETIC RETINOPATHY E11.319 TECHNIQUE: Ultrasound performed using standard protocol. COMPARISON: No exams were available for comparison FINDINGS: There is mild calcific plaque at both common carotid bulbs. There is no significant plaque in the int ernal carotid arteries. The velocity measurements obtained are within the normal range. Both vertebra l arteries show antegrade flow. IMPRESSION: No significant internal carotid artery stenosis.
== END 2019-05-30 02:07 ==
PROVIDERS: PCP Family Medicine; Visit Provider Family Medicine
DX: E11.319 Type 2 diabetes mellitus with unspecified diabetic retinopathy without macular edema (principal)
CPT/HCPCS: 93880

== ENCOUNTER 2019-07-24 21:01 | Outpatient (REF) | payer MEDICAID, SELFPAY ==
[2019-07-24 13:57] LABS: BUN 19 mg/dL (7-18); CREATININE 1.26 mg/dL (0.70-1.30); Calcium 9.3 mg/dL (8.5-10.1); Chloride 102 mmol/L (98-107); Estimated GFR 58.99 (mL/min/1.73m2); Glucose 125 mg/dL (74-106); Potassium 4.4 mmol/L (3.5-5.1); Sodium 141 mmol/L (136-145)
[2019-07-24 14:15] LABS: Hemoglobin A1C 7.4 % (3.8-5.6)
== END 2019-07-24 21:21 ==
LOC: NCHCN 21:01
PROVIDERS: PCP Family Medicine; Visit Provider Family Medicine
DX: E11.9 Type 2 diabetes mellitus without complications (principal); I10 Essential (primary) hypertension; R60.0 Localized edema
CPT/HCPCS: 80048; 83036

== ENCOUNTER 2020-07-20 09:31 | Outpatient (REF) | payer MEDICAID, SELFPAY ==
[2020-07-20 14:01] LABS: HCT 40.5 % (40.0-50.0); HGB 13.8 g/dL (13.5-17.5); MCHC 34.1 % (32.0-36.0); MPV 10.7 fL (8.0-11.0); Platelet Count 228 10^3/uL (130-400); RBC 4.45 10^6/uL (4.36-5.78); RDW-SD 42.8 fL; WBC 9.32 10^3/uL (4.4-10.8)
[2020-07-20 14:21] LABS: ALT 31 U/L (16-63); AST 23 U/L (15-37); Albumin 3.7 g/dL (3.4-5.0); Alkaline Phosphatase 82 U/L (46-116); Anion Gap 7.2 mmol/L (3-11); BUN 23 mg/dL (7-18); Bilirubin, Total 0.4 mg/dL (0.2-1.0); CO2 27.8 mmol/L (21.0-32.0); CREATININE 1.31 mg/dL (0.70-1.30); Calcium 9.2 mg/dL (8.5-10.1); Calculated LDL 64 mg/dL (<100); Chloride 102 mmol/L (98-107); Cholesterol 130 mg/dL (<200); Glucose 116 mg/dL (74-106); HDL Cholesterol 33 mg/dL (40-60); Potassium 4.5 mmol/L (3.5-5.1); Sodium 137 mmol/L (136-145); Total Protein 7.2 g/dL (6.4-8.2); Triglyceride 167 mg/dL (<150)
[2020-07-20 14:27] LABS: Hemoglobin A1C 7.3 % (<5.7)
[2020-07-20 14:56] LABS: COMMENT (LAB VIEW ONLY) 36.78 mg/dL
== END 2020-07-20 09:51 ==
LOC: NCHCN 09:31
PROVIDERS: PCP Family Medicine; Visit Provider Family Medicine
DX: E11.9 Type 2 diabetes mellitus without complications (principal); I10 Essential (primary) hypertension; E78.5 Hyperlipidemia, unspecified
CPT/HCPCS: 80053; 80061; 85027; 82043; 82570; 83036

== ENCOUNTER 2020-10-29 15:16 | Outpatient (REF) | payer MEDICAID, SELFPAY ==
[2020-10-29 15:50] LABS: Hemoglobin A1C 7.2 % (<5.7)
== END 2020-10-29 15:17 | disposition home or self-care (01) ==
LOC: NCHCN 15:16
PROVIDERS: PCP Family Medicine; Visit Provider Family Medicine
DX: E11.9 Type 2 diabetes mellitus without complications (principal)
CPT/HCPCS: 83036

== ENCOUNTER 2021-08-12 18:26 | Outpatient (REF) | payer MEDICAID, SELFPAY ==
[2021-08-12 16:02] LABS: Anion Gap 8.1 mmol/L (3-11); BUN 21 mg/dL (7-18); CO2 25.9 mmol/L (21.0-32.0); CREATININE 1.3 mg/dL (0.70-1.30); Calcium 9.5 mg/dL (8.5-10.1); Chloride 99 mmol/L (98-107); Glucose 85 mg/dL (74-106); Potassium 5.4 mmol/L (3.5-5.1); Sodium 133 mmol/L (136-145)
[2021-08-12 16:08] LABS: COMMENT (LAB VIEW ONLY) 188.84 mg/dL; Microalb ug/mg Crea 9.6 ug/mg Cr
[2021-08-13 10:11] LABS: HIV-1/2 Ag & Ab Screen Negative (Negative)
== END 2021-08-12 18:27 | disposition home or self-care (01) ==
LOC: NCHCN 18:26
PROVIDERS: PCP Family Medicine; Visit Provider Family Medicine
DX: E11.9 Type 2 diabetes mellitus without complications (principal); Z11.4 Encounter for screening for human immunodeficiency virus [HIV]
CPT/HCPCS: 80048; 87389; 82043; 82570

== ENCOUNTER 2021-09-14 15:24 | Outpatient (REF) | payer MEDICAID, SELFPAY ==
[2021-09-14 14:09] LABS: Anion Gap 10.5 mmol/L (3-11); BUN 24 mg/dL (7-18); CO2 26.5 mmol/L (21.0-32.0); CREATININE 1.3 mg/dL (0.70-1.30); Calcium 9.4 mg/dL (8.5-10.1); Chloride 99 mmol/L (98-107); Glucose 124 mg/dL (74-106); Potassium 4.3 mmol/L (3.5-5.1); Sodium 136 mmol/L (136-145)
== END 2021-09-14 15:25 | disposition home or self-care (01) ==
LOC: NCHCN 15:24
PROVIDERS: PCP Family Medicine; Visit Provider Family Medicine
DX: E87.5 Hyperkalemia (principal)
CPT/HCPCS: 80048

== ENCOUNTER 2021-12-22 10:08 | Emergency (ER) | payer MEDICAID, SELFPAY ==
[2021-12-22 10:13] VITALS: BP 124/91; PULSE 78; RESP 16; TEMP 36.7; O2SAT 98
--- NOTE | 2021-12-22 10:15 | DI.RAD_ITS ---
Exam(s) XR KNEE RT 3V AP,LAT,BRAYAN EXAM: XR KNEE RT 3V AP,LAT,BRAYAN CLINICAL HISTORY: prepatellar swelling TECHNIQUE: COMPARISON: No exams were available for comparison FINDINGS: Three views were obtained. Note is made of chondrocalcinosis. There is soft tissue swelling in the anterior aspect of the knee. There may be mild narrowing of the cartilaginous joint space of the med ial tibiofemoral joint. No underlying bony abnormality seen. Minimal marginal osteophyte formation noted at patellofemoral joint. IMPRESSION: No evidence of acute bony abnormality. RADIATION DOSE DELIVERED: Total DLP
--- NOTE | 2021-12-22 10:15 | DI.US_ITS ---
Exam(s) US LOWER EXTREMITY VENOUS RT EXAM: US LOWER EXTREMITY VENOUS RT CLINICAL HISTORY: swelling after trauma. TECHNIQUE: Ultrasound performed using standard protocol. COMPARISON: US US CAROTID from 05/30/2019 FINDINGS: Duplex venous ultrasound was performed according to the usual protocol. The deep veins are freely com pressible throughout and there is normal flow augmentation with manual calf compression. 2D and Doppl er evaluation are unremarkable. IMPRESSION: No evidence of deep venous thrombosis of the right lower extremity. Note is made of an approximately 4 cm by 2 x 4 cm in diameter Monzon cyst. DATA REPOSITORY:
--- NOTE | 2021-12-22 10:27 | ED.GENADUL_ITS ---
Discharge Plan Disposition Patient Disposition: HOME Condition: Improving Discharge Details Clinical Impression: Monzon's cyst of knee, Bursitis, prepatellar, right Primary Care Provider: Jamilah Harman ED Provider: Royce Guerin Home Meds and New Rx's Prescriptions: New cephalexin 500 mg capsule 500 mg PO TID 7 Days Qty: 21 0RF Continued meloxicam 7.5 mg tablet 7.5 mg PO BID Qty: 60 0RF Trulicity 1.5 mg/0.5 mL pen injector 1.5 mg subcut QWEEK furosemide 40 mg tablet 40 mg PO DAILY atorvastatin [Lipitor] 40 mg tablet 40 mg PO DAILY hydrocortisone 2.5 % cream 1 applic topical BID PRN insulin glargine [Lantus U-100 Insulin] 100 UNIT/ML solution 42 - 44 units SQ HS aspirin [Lo-Dose Aspirin] 81 MG tablet,delayed release (DR/EC) 81 mg PO DAILY metformin [Glucophage] 1,000 MG tablet 1,000 mg PO BID lisinopril 5 MG tablet 10 mg PO HS insulin aspart U-100 [Novolog PenFill U-100 Insulin] 100 UNIT/ML cartridge SQ DIRECTED Label Comments: 07/26/18 sliding scale diclofenac potassium 50 MG tablet 50 mg PO BID PRN PRNQty: 14 0RF Discharge Instructions Instructions: Monzon Cyst (ED), Knee Bursitis (ED) Additional Instructions: We have placed a referral on your behalf to orthopedics for follow-up. In 1 to 2 days please call the office for an appointment time. The office number is [phone]. Elevate the leg above the level of the heart to reduce swelling. Compression bandage may be used 10 to 12 hours/day and then remove at night. Leave Mepilex bandage in place 5 to 7 days time and then removed. Take antibiotics as prescribed until finished. Return to the ER for any acute concern. Medical Decision Making This is a pleasant and delightful 61-year-old male who fell on his right knee 2 weeks ago. He developed an abrasion and swelling that has been persist. Now swelling of the lower extremity and some stiffness of the joint which is required him to use a cane. No fever, chills, shortness of breath or chest pain. He is oxygenating normally and is afebrile. Differential diagnosis would include prepatellar bursitis, DVT and underlying bony injury. Patient referred for x-ray and US. X-ray without acute bony finding. There is a Monzon's cyst present but no DVT. I will place him on antibiotics and some compression for the prepatellar bursitis. Will offer follow-up with orthopedics. He is stable for discharge to home. HPI General Mode of arrival: ambulatory . Date/Time Provider Initiated Documentation: 12/22/21 10:10 . Limitations to Documentation: no limitations . Information obtained by: patient . History of Present Illness 61 year old M presents to the emergency department with the chief complaint of Right knee anterior swelling and pain after injury, described as moderate, Quality is described as dull and constant, and is localized to the right and lower extremity. Patient reports no radiation. Patient started experiencing this day(s) and it has been constant. No relieving factors improve symptom(s), Movement worsens symptoms . Patient notes no other symptoms.; denies chest pain, fever/chills, shortness of breath and syncope. Patient did receive the following treatments prior to arrival, none Related Data Home Medications Medication Instructions Recorded Confirmed aspirin 81 mg tablet,delayed 81 mg PO DAILY 07/14/13 12/22/21 release (Lo-Dose Aspirin) insulin glargine 100 unit/mL 42 - 44 units SQ HS 07/14/13 12/22/21 subcutaneous solution (Lantus U-100 Insulin) lisinopril 5 mg tablet 10 mg PO HS 07/14/13 12/22/21 metformin 1,000 mg tablet 1,000 mg PO BID 07/14/13 12/22/21 (Glucophage) diclofenac potassium 50 mg tablet 50 mg PO BID PRN PRN #14 tabs 06/27/14 12/22/21 insulin aspart U-100 100 unit/mL units SQ DIRECTED 06/27/14 08/26/21 subcutaneous cartridge (Novolog PenFill U-100 Insulin aspart) meloxicam 7.5 mg tablet 7.5 mg PO BID #60 tabs 12/17/18 12/22/21 atorvastatin 40 mg tablet (Lipitor) 40 mg PO DAILY 08/25/21 12/22/21 dulaglutide 1.5 mg/0.5 mL 1.5 mg subcut QWEEK 08/25/21 12/22/21 subcutaneous pen injector (Trulicity) furosemide 40 mg tablet 40 mg PO DAILY 08/25/21 12/22/21 hydrocortisone 2.5 % topical cream 1 applic topical BID PRN 08/25/21 12/22/21 cephalexin 500 mg capsule 500 mg PO TID 7 days #21 caps 12/22/21 Previous Rx's Medication Instructions Recorded diclofenac potassium 50 mg tablet 50 mg PO BID PRN PRN #14 tabs 06/27/14 meloxicam 7.5 mg tablet 7.5 mg PO BID #60 tabs 12/17/18 cephalexin 500 mg capsule 500 mg PO TID 7 days #21 caps 12/22/21 Allergies Allergy/AdvReac Type Severity Reaction Status Date / Time No Known Allergies Allergy Unverified 12/22/21 10:19 General Stated Complaint: RashLesion JOÃO: 4 Review of Systems Narrative: No fever or chills. No chest pain or shortness of breath. 6 systems reviewed and otherwise negative. PFSH All Active Problems Monzon's cyst of knee (Acute) Bursitis, prepatellar, right (Acute) 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 Low back pain (Chronic) Tobacco abuse (Chronic) Stage 2 moderate COPD by GOLD classification (Chronic) Obstructive sleep apnea (Chronic) Hyperlipidemia (Chronic) Hypertension (Chronic) Diabetes with retinopathy (Chronic) Diabetes mellitus (Chronic) Tendonitis of left rotator cuff (Acute) Subacromial injection: 11/05/18 Status post cataract extraction and insertion of intraocular lens of left eye (Chronic 08/13/18) Status post cataract extraction and insertion of intraocular lens of right eye (Chronic 07/30/18) Medical History Carpal tunnel syndrome, bilateral Chronic eczematoid otitis externa of right ear COPD (chronic obstructive pulmonary disease) Cortical cataract of left eye Cortical cataract of right eye Diabetic retinopathy Eructation Impacted cerumen, right ear Learning disability Leg edema Nuclear sclerotic cataract of left eye Nuclear sclerotic cataract of right eye Obesity Rotator cuff syndrome of right shoulder Family History Father Diabetes Social History Smoking/Tobacco Use Status: Current every day Tobacco Type: cigarettes Smoking risk assessment performed?: Yes Alcohol Intake: former Drug use: Rarely Substance use type: marijuana Do you feel safe at home: Yes Do you feel safe in your relationship?: Yes Exam Narrative Exam Narrative: GEN: awake, alert, oriented 3. Pleasant, well groomed, interactive. HEAD: Normocephalic, atraumatic ENT: Mucous membranes moist, oropharynx unremarkable, External ear exam unremarkable EYES: PERRL, EOMI NECK: Full ROM, no TU, no menigismus CHEST/RESP: Nontender, clear to auscultation bilateral, no wheeze/rhonchi/rales CARDIOVASCULAR: RRR, no murmur, rub marquise. 2+ Rad pulse bilateral ABDOMEN: Soft, nontender, no mass. +Bowel sounds EXT: Full ROM, right prepatellar/anterior knee swelling, abrasion present. The joint is freely mobile. There is 2+ edema to the right lower extremity Neuro: Grossly normal neurologic exam, conversant, interactive. Psych: Speech fluent, thoughts congruent, affect normal Course Vital Signs Vital signs: Vital Signs Temperature 36.7 C 12/22/21 10:13 Pulse 78 12/22/21 10:13 Respiratory Rate 16 12/22/21 10:13 Blood Pressure 124/91 H 12/22/21 10:13 Pulse Oximetry 98 12/22/21 10:13 Temperature 36.7 C 12/22/21 10:13 Temperature Source Temporal Artery Scan 12/22/21 10:13 Pulse 78 12/22/21 10:13 Respiratory Rate 16 12/22/21 10:13 Respiratory Effort 12/22/21 10:13 Blood Pressure 124/91 H 12/22/21 10:13 Blood Pressure Position Sitting 12/22/21 10:13 Pulse Oximetry 98 12/22/21 10:13 Oxygen Delivery Method Room Air 12/22/21 10:13 Oxygen Flow Rate 0 12/22/21 10:13 Pain Level 10 12/22/21 10:13
== END 2021-12-22 12:00 | disposition home or self-care (01) ==
PROVIDERS: Emergency Provider Emergency Medicine; PCP Family Medicine
DX: M71.21 Synovial cyst of popliteal space [Baker], right knee (principal); J44.9 Chronic obstructive pulmonary disease, unspecified; I10 Essential (primary) hypertension; E11.319 Type 2 diabetes mellitus with unspecified diabetic retinopathy without macular edema; Z79.4 Long term (current) use of insulin; M70.41 Prepatellar bursitis, right knee; F17.200 Nicotine dependence, unspecified, uncomplicated
CPT/HCPCS: 73562; 99284; 93971

== ENCOUNTER 2022-10-14 15:19 | Outpatient (REF) | payer MEDICAID, SELFPAY ==
[2022-10-14 14:55] LABS: HGB 14.1 g/dL (13.5-17.5); MCH 31.5 pg (27.0-33.0); MCHC 34.4 % (32.0-36.0); MCV 92 fL (80-95); MPV 10.9 fL (8.0-11.0); Platelet Count 245 10^3/uL (130-400); RBC 4.48 10^6/uL (4.36-5.78); RDW 12.4 % (11.8-14.1); RDW-SD 40.8 fL; WBC 7.37 10^3/uL (4.4-10.8)
[2022-10-14 15:23] LABS: ALT 28 U/L (16-63); AST 24 U/L (15-37); Alkaline Phosphatase 86 U/L (46-116); Anion Gap 9.4 mmol/L (3-11); BUN 26 mg/dL (7-18); Bilirubin, Total 0.6 mg/dL (0.2-1.0); CO2 27.6 mmol/L (21.0-32.0); CREATININE 1.6 mg/dL (0.70-1.30); Calcium 9.7 mg/dL (8.5-10.1); Chloride 99 mmol/L (98-107); Estimated GFR 48.72 (mL/min/1.73m2); Glucose 100 mg/dL (74-106); NT-proBNP 241 pg/mL (<300); Potassium 3.9 mmol/L (3.5-5.1); Sodium 136 mmol/L (136-145); Total Protein 8.1 g/dL (6.4-8.2)
[2022-10-14 15:31] LABS: Hemoglobin A1C 8.5 % (<5.7)
== END 2022-10-14 15:20 | disposition home or self-care (01) ==
LOC: NCHCN 15:19
PROVIDERS: PCP Family Medicine; Visit Provider Family Medicine
DX: E11.9 Type 2 diabetes mellitus without complications (principal); I10 Essential (primary) hypertension; R60.0 Localized edema; R06.89 Other abnormalities of breathing
CPT/HCPCS: 80053; 85027; 83036; 83880

== ENCOUNTER 2023-02-06 11:35 | Outpatient (REF) | payer MEDICAID, SELFPAY ==
[2023-02-06 14:37] LABS: COMMENT (LAB VIEW ONLY) 25.86 mg/dL; Microalb ug/mg Crea 45.2 ug/mg Cr
== END 2023-02-06 11:36 | disposition home or self-care (01) ==
LOC: NCHCN 11:35
PROVIDERS: PCP Family Medicine; Visit Provider Family Medicine
DX: E11.9 Type 2 diabetes mellitus without complications (principal); R60.0 Localized edema; I10 Essential (primary) hypertension
CPT/HCPCS: 82043; 82570

== ENCOUNTER 2023-09-06 12:28 | Emergency (ER) | payer MEDICAID, SELFPAY ==
[2023-09-06 12:36] VITALS: BP 172/71; PULSE 84; RESP 18; TEMP 36.9; O2SAT 96
--- NOTE | 2023-09-06 15:05 | W.ED.GENAD ---
Discharge Plan Disposition Patient Disposition: Home Discharge Details Clinical Impression: Sinusitis Primary Care Provider: Jamilah Harman ED Provider: Marissa Suarez Home Meds and New Rx's Prescriptions: New amoxicillin 500 mg capsule 500 mg PO TID Qty: 30 0RF Continued meloxicam 7.5 mg tablet 7.5 mg PO BID Qty: 60 0RF Trulicity 1.5 mg/0.5 mL pen injector 1.5 mg subcut QWEEK furosemide 40 mg tablet 40 mg PO DAILY atorvastatin [Lipitor] 40 mg tablet 40 mg PO DAILY hydrocortisone 2.5 % cream 1 applic topical BID PRN insulin glargine [Lantus U-100 Insulin] 100 UNIT/ML solution 42 - 44 units SQ HS aspirin [Lo-Dose Aspirin] 81 MG tablet,delayed release (DR/EC) 81 mg PO DAILY metformin [Glucophage] 1,000 MG tablet 1,000 mg PO BID lisinopril 5 MG tablet 10 mg PO HS insulin aspart U-100 [Novolog PenFill U-100 Insulin] 100 UNIT/ML cartridge SQ DIRECTED Patient Comments: 07/26/18 sliding scale diclofenac potassium 50 MG tablet 50 mg PO BID PRN PRNQty: 14 0RF Discharge Instructions Instructions: Sinusitis (ED) Additional Instructions: Increase fluids/ warm tea will help clear mucus Take the antibiotic as prescribed Yogurt daily while on the antibiotic if you are able to Please follow-up with your primary care physician in 2 weeks for reassessment and return earlier should you have new or worsening complaints Referrals: Jamilah Harman MD [Primary Care Provider] - Discharge Data Discharge Date/Time-TO BE ENTERED AT DEPARTURE: 09/06/23 13:10 HPI General Date/Time Provider Initiated Documentation: 09/06/23 12:49. HPI Narrative: This 62-year-old male presents with report of maxillary congestion and pain, headache, symptoms present for 9 to 10 days, denies fever or chills. Currently resides in a local custodial. Insulin-dependent diabetic states his blood sugars have been erratic but baseline for him. Denies any chest pain, shortness of breath, dizziness. Endorses purulent nasal drainage. Denies any sore throat or difficulty swallowing. States pressure in bilateral ears. States numerous sick contacts Related Data Home Medications Medication Instructions Recorded Confirmed aspirin 81 mg tablet,delayed 81 mg PO DAILY 07/14/13 12/22/21 release (Lo-Dose Aspirin) insulin glargine 100 unit/mL 42 - 44 units SQ HS 07/14/13 12/22/21 subcutaneous solution (Lantus U-100 Insulin) lisinopril 5 mg tablet 10 mg PO HS 07/14/13 12/22/21 metformin 1,000 mg tablet 1,000 mg PO BID 07/14/13 12/22/21 (Glucophage) diclofenac potassium 50 mg tablet 50 mg PO BID PRN PRN #14 tabs 06/27/14 12/22/21 insulin aspart U-100 100 unit/mL units SQ DIRECTED 06/27/14 08/26/21 subcutaneous cartridge (Novolog PenFill U-100 Insulin aspart) meloxicam 7.5 mg tablet 7.5 mg PO BID #60 tabs 12/17/18 12/22/21 atorvastatin 40 mg tablet (Lipitor) 40 mg PO DAILY 08/25/21 12/22/21 dulaglutide 1.5 mg/0.5 mL 1.5 mg subcut QWEEK 08/25/21 12/22/21 subcutaneous pen injector (Trulicity) furosemide 40 mg tablet 40 mg PO DAILY 08/25/21 12/22/21 hydrocortisone 2.5 % topical cream 1 applic topical BID PRN 08/25/21 12/22/21 amoxicillin 500 mg capsule 500 mg PO TID #30 caps 09/06/23 Previous Rx's Medication Instructions Recorded diclofenac potassium 50 mg tablet 50 mg PO BID PRN PRN #14 tabs 06/27/14 meloxicam 7.5 mg tablet 7.5 mg PO BID #60 tabs 12/17/18 amoxicillin 500 mg capsule 500 mg PO TID #30 caps 09/06/23 Allergies Allergy/AdvReac Type Severity Reaction Status Date / Time No Known Allergies Allergy Unverified 09/06/23 12:40 General Stated Complaint: GenMedical JOÃO: 4 Course Vital Signs Vital signs: Vital Signs Temperature 36.9 C 09/06/23 12:36 Pulse 84 09/06/23 12:36 Respiratory Rate 18 09/06/23 12:36 Blood Pressure 172/71 H 09/06/23 12:36 Pulse Oximetry 96 09/06/23 12:36 Temperature 36.9 C 09/06/23 12:36 Pulse 84 09/06/23 12:36 Respiratory Rate 18 09/06/23 12:36 Respiratory Effort Normal 09/06/23 13:05 Blood Pressure 172/71 H 09/06/23 12:36 Blood Pressure Position Sitting 09/06/23 12:36 Pulse Oximetry 96 09/06/23 12:36 Oxygen Delivery Method Room Air 09/06/23 12:36 Oxygen Flow Rate 0 09/06/23 12:36 Medical Decision Making 62-year-old male in no acute distress multiple comorbidities presenting for upper respiratory versus sinus infection, as she has had symptoms for 9 to 10 days will treat him with antibiotics, amoxicillin Mild headache, no fluid behind the ears, maxillary sinus tenderness and swelling on exam Lungs clear to auscultation, cardiac rhythm regular, no acute distress Placed on amoxicillin, return precautions reviewed and patient expressed understanding Quality:SDOH Health Related Social Needs: No Data to Display PFSH All Active Problems Sinusitis (Acute) 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 Low back pain (Chronic) Tobacco abuse (Chronic) Stage 2 moderate COPD by GOLD classification (Chronic) Obstructive sleep apnea (Chronic) Hyperlipidemia (Chronic) Hypertension (Chronic) Diabetes with retinopathy (Chronic) Diabetes mellitus (Chronic) Tendonitis of left rotator cuff (Acute) Subacromial injection: 11/05/18 Status post cataract extraction and insertion of intraocular lens of left eye (Chronic 08/13/18) Status post cataract extraction and insertion of intraocular lens of right eye (Chronic 07/30/18) Medical History Carpal tunnel syndrome, bilateral Chronic eczematoid otitis externa of right ear COPD (chronic obstructive pulmonary disease) Cortical cataract of left eye Cortical cataract of right eye Diabetic retinopathy Eructation Impacted cerumen, right ear Learning disability Leg edema Nuclear sclerotic cataract of left eye Nuclear sclerotic cataract of right eye Obesity Rotator cuff syndrome of right shoulder Family History Father Diabetes Social History Smoking/Tobacco Use Status: Current every day Tobacco Type: cigarettes Smoking risk assessment performed?: Yes Alcohol Intake: former Drug use: Rarely Substance use type: marijuana Do you feel safe at home: Yes Do you feel safe in your relationship?: Yes
== END 2023-09-06 13:10 | disposition home or self-care (01) ==
LOC: ER 13:20
PROVIDERS: Emergency Provider Physician Assistant; PCP Family Medicine
DX: J32.9 Chronic sinusitis, unspecified (principal); R51.9 Headache, unspecified; E11.9 Type 2 diabetes mellitus without complications
CPT/HCPCS: 99283

== ENCOUNTER 2023-09-11 13:50 | Outpatient (REF) | payer MEDICAID, SELFPAY ==
[2023-09-11 15:43] LABS: ALT 41 U/L (16-63); AST 15 U/L (15-37); Albumin 3.6 g/dL (3.4-5.0); Alkaline Phosphatase 173 U/L (46-116); Anion Gap 10.8 mmol/L (3-11); BUN 28 mg/dL (7-18); Bilirubin, Total 0.5 mg/dL (0.2-1.0); CO2 25.2 mmol/L (21.0-32.0); CREATININE 1.5 mg/dL (0.70-1.30); Calcium 9.8 mg/dL (8.5-10.1); Chloride 91 mmol/L (98-107); Estimated GFR 52.64 (mL/min/1.73m2); Sodium 127 mmol/L (136-145); Total Protein 7.9 g/dL (6.4-8.2)
[2023-09-11 15:44] LABS: Glucose 499 mg/dL (74-106)
[2023-09-11 15:47] LABS: Hemoglobin A1C 10.5 % (<5.7)
== END 2023-09-11 13:51 | disposition home or self-care (01) ==
LOC: NCHCN 13:50
PROVIDERS: PCP Family Medicine; Visit Provider Family Medicine
DX: E11.9 Type 2 diabetes mellitus without complications (principal)
CPT/HCPCS: 80053; 83036

== ENCOUNTER 2023-09-15 00:41 | Emergency (ER) | payer MEDICAID, SELFPAY ==
--- NOTE | 2023-09-15 00:30 | RT.EKG_ITS ---
APPROVED REPORT Exam: Resting ECG Reason for Exam: DIABETIC Patient Location: E HR:63 bpm ECG Measurements Heart Rate 63 AXIS VA 68 P 0 QRSd 106 QRS -12 QT 454 T 12 QTc 463 Conclusion Sinus rhythm...normal P axis, V-rate 60- 99 Probable lateral infarct, old...Q>35mS, abnormal ST-T, V5-6 I aVL Physician: no stemi
[2023-09-15 00:42] VITALS: BP 161/90; PULSE 66; RESP 18; TEMP 36.8; O2SAT 100
--- NOTE | 2023-09-15 00:45 | DI.CT_ITS ---
Exam(s) CT BRAIN NECK CTA EXAM: CT BRAIN NECK CTA CLINICAL HISTORY: confused, slurred speech, altered. TECHNIQUE: Imaging Protocol: Axial CT angiography was performed with multi-slice acquisition and mu lti-planar and/or 3D reconstructions. CONTRAST MATERIAL: Intravenous: Omnipaque 350 Contrast volume:structured data in ml COMPARISON: No exams were available for comparison FINDINGS: CTA Neck W: Aortic arch anatomy: The aortic arch anatomy is conventional and there is no significant stenosis at the origin of the great vessels off of the aortic arch. No intimal flap evident. Anterior circulation: Both common carotid arteries ascend with normal luminal diameters. There is heavily calcified plaque at the level both carotid bulbs and with some posterior wall calcif ied plaque in the proximal internal carotid arteries bilaterally. Estimated at approximately fifty s tenosis bilaterally at the carotid bulbs. The upper internal carotid arteries in the neck exhibits s ome peripheral calcification but no tight stenosis. Posterior circulation: Both vertebral arteries originate in conventional fashion off of the subclavian arteries and there is no obvious stenosis at the origin of the vertebral arteries. Both vertebral arteries exhibit normal luminal diameters within the foramen transversarium. Both vertebral arteries contribute to the formation of the basilar artery at the skull base. However, at the skull base the most distal aspect of the right vertebral artery is a thinner vessel d iameter. CTA Brain W: Anterior circulation: Both internal carotid arteries are patent in the skull base-carotid canals. The intracavernous inter nal carotid arteries are heavily calcified not occluded. Supraclinoid aspects are patent. The supraclinoid aspects of the ICAs are patent. Both A1 segments are patent as are the anterior cer ebral arteries and there is no evidence of aneurysm at the level of the anterior communicating artery . Both middle cerebral arteries are patent with no evidence of significant stenosis nor intraluminal th rombus. There also no aneurysms of these vessels. Posterior circulation: The basilar artery ascends in the midline. Distally it gives off patent bilateral superior cerebella r arteries. Above this level the basilar artery terminates as patent bilateral posterior cerebral arteries. There is no evidence of aneurysm at the tip of the basilar artery nor elsewhere in the [id number] is. CT BRAIN: There is no evidence of intracranial hemorrhage, mass effect, or shift of midline structures. There are no extra-axial fluid collections. Ventricles are not enlarged or shifted. Septum cavum pellucid um noted. There are no ring enhancing lesions in the brain and no abnormal meningeal enhancement. There is some symmetrical periventricular hypodensity consistent with chronic small vessel disease. IMPRESSION: 1. There is calcified plaque bilaterally at the carotid bulbs with approximately fifty bilaterally at these levels. Some vascular calcifications also noted in the bilateral internal carotid arteries in the upper neck but no tight stenosis at this level. 2. Patent vertebral arteries. Both contribute to the formation of the basilar artery at the skull ba se. The left vertebral artery at this level is dominant. 3. Heavily calcified intra cavernous internal carotid arteries. No obvious tight stenosis. No aneu rysms. RADIATION DOSE DELIVERED: Total DLP DATA REPOSITORY: All CT scans at this facility are submitted to the National Radiology Data Registry (NRDR) Dose Index Registry (DIR) with the [employer] ([employer]). RADIATION OPTIMIZATION: All CT scans at this facility use at least one of these dose optimization te chniques: automated exposure control; mA and/or kV adjustment per patient size (includes targeted exa ms where dose is matched to clinical indication); or iterative reconstruction.
[2023-09-15 01:05] LABS: BE (Venous) 5 mmol/L (-2-3); HCO3 (Venous) 31 mmol/L (23-28); O2 Sat (Venous) 38 %; TCO2 (Venous) 29 mmol/L (24-29); pCO2 (Venous) 56 mmHg (41-51); pH (Venous) 7.35 (7.31-7.41); pO2 (Venous) 22 mmHg
--- NOTE | 2023-09-15 01:08 | W.ED.GENAD ---
Discharge Plan Disposition Patient Disposition: Home Condition: Good Discharge Details Chief Complaint: GenMedical Clinical Impression: Altered behavior, Weakness Primary Care Provider: Jamilah Harman ED Provider: Zay Lyman Home Meds and New Rx's Prescriptions: No Action Trulicity 1.5 mg/0.5 mL pen injector 1.5 mg subcut QWEEK furosemide 40 mg tablet 40 mg PO DAILY atorvastatin [Lipitor] 40 mg tablet 40 mg PO DAILY hydrocortisone 2.5 % cream 1 applic topical BID PRN insulin glargine [Lantus U-100 Insulin] 100 UNIT/ML solution 42 - 44 units SQ HS aspirin [Lo-Dose Aspirin] 81 MG tablet,delayed release (DR/EC) 81 mg PO DAILY metformin [Glucophage] 1,000 MG tablet 1,000 mg PO BID lisinopril 5 MG tablet 10 mg PO HS insulin aspart U-100 [Novolog PenFill U-100 Insulin] 100 UNIT/ML cartridge SQ DIRECTED Patient Comments: 07/26/18 sliding scale amoxicillin 500 mg capsule 500 mg PO TID Qty: 30 0RF Discharge Instructions Instructions: Weakness (ED) Additional Instructions: At this time your workup shows no signs of infection, stroke, or other significant abnormality. Please maintain good sleep habits. Stay well-hydrated throughout the day. Follow-up closely with your primary care provider for continued outpatient medical management. If you notice any worsening of your symptoms, or any new symptoms such as vomiting, diarrhea, fever, chills, shortness of breath, chest pain, numbness, weakness, or fainting , please return immediately to the emergency department for reevaluation. Please follow up with your primary care provider as soon as possible for reassessment and reevaluation. As always, it was a pleasure participating in your medical care today. Referrals: Jamilah Harman MD [Primary Care Provider] - [facility] General Date/Time Provider Initiated Documentation: 09/15/23 00:52. HPI Narrative: 62-year-old male with a past medical history of insulin-dependent type 2 diabetes, sinusitis currently on amoxicillin, hypertension, high cholesterol, who is homeless [facility], presents today for evaluation of confusion. Patient was started on the amoxicillin about 9 days ago for sinus infection, he feels that for the last 2 to 3 days he has been confused, had some difficulty speaking, his had difficulty walking around. At the [facility]iary these behaviors were noted, it was notably worse tonight, and EMS was called. The [facility] reports that he had been walking out in his underwear to go to the bathroom which is notably atypical for him. When EMS was called the patient was having some mild dysarthria. However this improved in their transit here. EMS noted no other significant abnormalities on their initial assessment aside for some mild slow ambulation. Patient denies any chest pain or shortness of breath. He is aware and cognizant of these changes and deficits. He denies any falls or trauma. He does admit to a very mild frontal headache, but denies any neck pain or neck tightness. He denies any fever or chills. No other complaints at this time. He denies any history of stroke or SC. Related Data Home Medications Medication Instructions Recorded Confirmed aspirin 81 mg tablet,delayed 81 mg PO DAILY 07/14/13 09/15/23 release (Lo-Dose Aspirin) insulin glargine 100 unit/mL 42 - 44 units SQ HS 07/14/13 09/15/23 subcutaneous solution (Lantus U-100 Insulin) lisinopril 5 mg tablet 10 mg PO HS 07/14/13 09/15/23 metformin 1,000 mg tablet 1,000 mg PO BID 07/14/13 09/15/23 (Glucophage) insulin aspart U-100 100 unit/mL units SQ DIRECTED 06/27/14 08/26/21 subcutaneous cartridge (Novolog PenFill U-100 Insulin aspart) atorvastatin 40 mg tablet (Lipitor) 40 mg PO DAILY 08/25/21 09/15/23 dulaglutide 1.5 mg/0.5 mL 1.5 mg subcut QWEEK 08/25/21 09/15/23 subcutaneous pen injector (Trulicity) furosemide 40 mg tablet 40 mg PO DAILY 08/25/21 09/15/23 hydrocortisone 2.5 % topical cream 1 applic topical BID PRN 08/25/21 12/22/21 amoxicillin 500 mg capsule 500 mg PO TID #30 caps 09/06/23 09/15/23 Previous Rx's Medication Instructions Recorded amoxicillin 500 mg capsule 500 mg PO TID #30 caps 09/06/23 Allergies Allergy/AdvReac Type Severity Reaction Status Date / Time No Known Allergies Allergy Unverified 09/15/23 00:51 General Stated Complaint: GenMedical JOÃO: 2 Review of Systems All systems reviewed & are unremarkable except as noted in HPI and below Exam Narrative Exam Narrative: 1.Const: Well-nourished, Well-developed, appearing stated age 2.Eyes: PERRL, no conjunctival injection, and symmetrical lids. 3.ENT: Atraumatic external nose and ears. Moist MM. Neck: Symmetric, trachea midline, No thyromegaly. Patient demonstrates good movement of cervical neck. There is no nuchal rigidity, no nuchal tenderness. Patient is able to flex the neck without any difficulty or significant pain. Negative Kernig's and Brudzinski sign. 4.CVS: +S1/S2, No murmurs or gallops. Peripheral pulses 2+ and equal in all extremities. Brisk capillary refill in all extremities. 5.RESP: Unlabored respiratory effort. Clear to auscultation bilaterally. No wheezes rales or rhonchi 6.GI: Soft, Nontender/Nondistended, No hepatosplenomegaly. No guarding or rebound. 7.MSK: Normocephalic/Atraumatic, Extremities w/o deformity or ttp No cyanosis or clubbing, Normal movement of all extremities 8.Skin: Warm, Dry. No rashes or lesions. 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 Sensation grossly intact, no focal neurologic deficits. All 6 cardinal planes of vision are fully intact. No evidence of rotatory or vertical nystagmus. The patient demonstrated a normal [id number], good dexterity. There was no evidence of dysdiadochokinesia, however the left hand did rotate slightly slower than the right. Patient was able to ambulate but was quite slow with ambulation. There was no wide-based gait. Phdp-sv-viem testing was normal. Sensation was intact bilaterally as well as muscle strength bilaterally for all extremities. Patient was able to verbalize butter cup with no slurring, or miss pronunciation. 10.Psych: (AAO) x3. Appropriate mood and affect Course Vital Signs Vital signs: Vital Signs Temperature 36.8 C 09/15/23 00:42 Pulse 66 09/15/23 00:42 Respiratory Rate 18 09/15/23 00:42 Blood Pressure 161/90 H 09/15/23 00:42 Pulse Oximetry 100 09/15/23 00:42 Temperature 36.8 C 09/15/23 00:42 Temperature Source Temporal Artery Scan 09/15/23 00:42 Pulse 66 09/15/23 00:42 Respiratory Rate 18 09/15/23 00:42 Respiratory Effort Normal 09/15/23 00:55 Blood Pressure 161/90 H 09/15/23 00:42 Blood Pressure Position Sitting 09/15/23 00:42 Pulse Oximetry 100 09/15/23 00:42 Lab/Test Results Lab/Test Results: Laboratory Tests Range/Units 09/15/23 01:02 VBG pH (7.31-7.41) 7.35 VBG pCO2 (41-51) mmHg 56 H VBG pO2 mmHg 22 VBG HCO3 (23-28) mmol/L 31 H VBG Total CO2 (24-29) mmol/L 29 VBG O2 Saturation % 38 VBG Base Excess (-2-3) mmol/L 5 H Medical Decision Making 62-year-old male with a past medical history of insulin-dependent type 2 diabetes, sinusitis currently on amoxicillin, hypertension, high cholesterol, who is homeless and [facility], presents today for evaluation of confusion. Patient was started on the amoxicillin about 9 days ago for sinus infection, he feels that for the last 2 to 3 days he has been confused, had some difficulty speaking, his had difficulty walking around. [facility] the [facility] these behaviors were noted, it was notably worse tonight, and EMS was called. The [facility] reports that he had been walking out in his underwear to go to the bathroom which is notably atypical for him. When EMS was called the patient was having some mild dysarthria. However this improved in their transit here. EMS noted no other significant abnormalities on their initial assessment aside for some mild slow ambulation. Patient denies any chest pain or shortness of breath. He is aware and cognizant of these changes and deficits. He denies any falls or trauma. He does admit to a very mild frontal headache, but denies any neck pain or neck tightness. He denies any fever or chills. No other complaints at this time. He denies any history of stroke or SC. Physical exam demonstrates well-appearing male, neurologic assessment relatively unremarkable. Minimal slowness for the left hand with rapid alternating movements, however ffsupy-nzoq-[id number] normal, and the remainder of his neurologic assessment was normal. Differential is broad however exam demonstrates no nuchal rigidity or neck stiffness. Minimal frontal headache but no generalized headache. Symptoms do not appear consistent with meningitis on clinical assessment. No clear deficit to suggest stroke, as the patient is able to speak clearly and well at this time. He is missing his front upper teeth which does make S sounds slightly more challenging but otherwise he does not show any signs of gross aphasia or dysarthria. NIH stroke score is 0 at this time. He is slightly slow with ambulation but no wide-based gait, no difficulty with mxpi-tn-zior to suggest a cerebellar stroke. Mild acute stroke is of concern, electrolyte abnormality or urinary infection is of concern. Hepatic encephalopathy or hypercarbia is of concern. We will evaluate for these etiologies, get a CT/CTA of the head, monitor closely and reassess. 5:10 AM Patient remained stable on reassessment. Neurologic reassessment shows no focal neurologic deficits. Patient is able to ambulate without significant difficulty. CT scan negative for acute process in the brain or neck. No carotid flow-limiting stenosis per radiology. laboratory workup shows no white count, no left shift. VBG is stable with no acidosis or significant hypercarbia. CO2 is minimally elevated at 56. Electrolytes normal. Troponin normal. Ammonia level undetected. Thyroid function normal. Alcohol level negative. COVID flu and RSV negative. Patient states that he feels well, and clinical assessment at this time does not show any evidence of deficit, meningeal signs, or other significant abnormality. Patient does admit that he has not been sleeping well, which may be secondary to mild sleep apnea or his current living situation [facility]. Fatigue may also certainly have been bringing about his symptomatology. However at this time there is no evidence of acute life-threatening etiology. Patient stable for discharge. Discussed red flags which to return. I have extensively reviewed the treatment plan and discharge instructions with the patient. I have addressed all patient concerns at this time. The patient was made aware of what symptoms to monitor for that would warrant a return to the emergency department. Discussed the plan with the patient, they demonstrate verbal understanding and agreement with our assessment and plan at this time. The documentation in this chart was dictated using Pix4D dictation software. Please excuse any dictation errors. FINDINGS: ANTERIOR CIRCULATION: Right internal carotid artery: Intracranial segment is patent with no significant stenosis. No aneurysm. Right middle cerebral artery: No occlusion or significant stenosis. No aneurysm. Right anterior cerebral artery: No occlusion or significant stenosis. No aneurysm. Left internal carotid artery: Intracranial segment is patent with no significant stenosis. No aneurysm. Left middle cerebral artery: No occlusion or significant stenosis. No aneurysm. Left anterior cerebral artery: No occlusion or significant stenosis. No aneurysm. POSTERIOR CIRCULATION: Right vertebral artery: No occlusion or significant stenosis. No aneurysm. Left vertebral artery: No occlusion or significant stenosis. No aneurysm. Basilar artery: No occlusion or significant stenosis. No aneurysm. Right posterior cerebral artery: No occlusion or significant stenosis. No aneurysm. Left posterior cerebral artery: No occlusion or significant stenosis. No aneurysm. Other arteries: Severe anterior intracranial atherosclerotic disease. Brain: Pineal gland calcifications. Choroid plexus calcifications. Mild atrophy of the parenchyma with compensatory dilation of the fluid spaces. Mild asymmetric right frontal lobe white matter hypoattenuation. Cerebral ventricles: Normal variant ventricular anatomy. Paranasal sinuses: Near-complete opacification of the left maxillary sinus. Multichamber sinus mucosal thickening. Bones/joints: Unremarkable. No acute fracture. Soft tissues: Unremarkable. IMPRESSION: 1. No acute intracranial findings. 2. No acute vascular findings. 3. Severe anterior intracranial atherosclerotic disease of the bilateral intracranial internal carotid arteries without significant flow-limiting stenosis. FINDINGS: Right common carotid artery: 50% stenosis of the right carotid bulb. Right internal carotid artery: Scattered regions of calcified atherosclerotic disease of the right extracranial internal carotid artery without significant stenosis. Right external carotid artery: No occlusion or stenosis of the origin. Left common carotid artery: 50% stenosis of the left carotid bulb. Left internal carotid artery: Scattered regions of calcified atherosclerotic disease of the left extracranial internal carotid artery without significant stenosis. Left external carotid artery: No occlusion or stenosis of the origin. Right vertebral artery: No stenosis. No dissection or occlusion. Left vertebral artery: No stenosis. No dissection or occlusion. Aorta: Mild atherosclerotic disease of the aortic arch. Soft tissues: Normal. No significant soft tissue swelling. Bones/joints: No acute fracture. IMPRESSION: No acute vascular findings. REFERENCES: NASCET CRITERIA. The degree of stenosis in the cervical segment of the internal carotid artery is based on NASCET criteria. Normal is no stenosis. Mild is less than 50% stenosis. Moderate is 50- 69% stenosis. Severe is 70% to 99% stenosis. Total occlusion is no detectable patent lumen. Thank you for allowing us to participate in the care of your patient. Dictated and Authenticated by: Robert Cantrell DO 09/15/2023 4:03 AM Eastern Time ([place] & [place]) Quality:SDOH Health Related Social Needs: No Data to Display PFSH All Active Problems Weakness (Acute) Altered behavior (Acute) Sinusitis (Acute) 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 Low back pain (Chronic) Tobacco abuse (Chronic) Stage 2 moderate COPD by GOLD classification (Chronic) Obstructive sleep apnea (Chronic) Hyperlipidemia (Chronic) Hypertension (Chronic) Diabetes with retinopathy (Chronic) Diabetes mellitus (Chronic) Tendonitis of left rotator cuff (Acute) Subacromial injection: 11/05/18 Status post cataract extraction and insertion of intraocular lens of left eye (Chronic 08/13/18) Status post cataract extraction and insertion of intraocular lens of right eye (Chronic 07/30/18) Medical History Obesity Rotator cuff syndrome of right shoulder Learning disability Leg edema COPD (chronic obstructive pulmonary disease) Diabetic retinopathy Chronic eczematoid otitis externa of right ear Impacted cerumen, right ear Eructation Carpal tunnel syndrome, bilateral Cortical cataract of left eye Nuclear sclerotic cataract of left eye Cortical cataract of right eye Nuclear sclerotic cataract of right eye Family History Father Diabetes Social History Smoking/Tobacco Use Status: Current every day Tobacco Type: cigarettes Smoking risk assessment performed?: Yes Alcohol Intake: former Drug use: Rarely Substance use type: marijuana Do you feel safe at home: Yes Do you feel safe in your relationship?: Yes
[2023-09-15 01:14] LABS: Abs Immature Grans 0.11 10^3/uL (0.0-0.06); Absolute Basophil Count 0.08 10^3/uL (0.0-0.2); Absolute Lymphocyte Count 2.53 10^3/uL (1.2-3.4); Absolute Monocyte Count 0.86 10^3/uL (0.1-0.8); Basophils % 0.8; Eosinophils % 3.8; HGB 13.5 g/dL (13.5-17.5); Lymphocytes % 24.1; MCH 31.3 pg (27.0-33.0); MCHC 34.6 % (32.0-36.0); MCV 90 fL (80-95); MPV 10.1 fL (8.0-11.0); Monocytes % 8.2; Neutrophils % 62.1; Platelet Count 324 10^3/uL (130-400); RBC 4.32 10^6/uL (4.36-5.78); RDW 12.2 % (11.8-14.1); RDW-SD 39.7 fL; WBC 10.48 10^3/uL (4.4-10.8)
[2023-09-15 01:24] LABS: Prothrombin Time 9.9 sec (9.1-11.1)
[2023-09-15 01:30] LABS: Ammonia < 10 umol/L (11-32)
[2023-09-15 01:45] LABS: COVID-19 PCR Negative (Negative); Influenza A PCR Negative (Negative); Influenza B PCR Negative (Negative); RSV PCR Negative (Negative)
[2023-09-15 01:49] LABS: ALT 28 U/L (16-63); AST 8 U/L (15-37); Albumin 3.6 g/dL (3.4-5.0); Alkaline Phosphatase 151 U/L (46-116); Anion Gap 7.5 mmol/L (3-11); BUN 21 mg/dL (7-18); Bilirubin, Total 0.3 mg/dL (0.2-1.0); CO2 30.5 mmol/L (21.0-32.0); CREATININE 1.3 mg/dL (0.70-1.30); Calcium 9.7 mg/dL (8.5-10.1); Chloride 96 mmol/L (98-107); Glucose 121 mg/dL (74-106); Potassium 3.6 mmol/L (3.5-5.1); Sodium 134 mmol/L (136-145); TSH (W/Ref FT4) 1.79 uIU/mL (0.36-3.74); Total Protein 8.3 g/dL (6.4-8.2); Troponin I < 50 ng/L (< or =60)
[2023-09-15 01:50] LABS: ETHANOL BLOOD < 3.0 mg/dL (<10)
[2023-09-15 01:52] LABS: Source Nasopharynx
[2023-09-15] MEDS: Normal Saline - Diluent 50 ML VIAL IJ (02:48)
[2023-09-15] MEDS: Acetaminophen 500 MG TAB 1000 MG PO (02:49)
[2023-09-15] MEDS: Omnipaque 350 MG/ML 100 ML BTL IJ (02:49)
[2023-09-15 03:34] VITALS: BP 135/46; PULSE 64; O2SAT 98
--- NOTE | 2023-09-15 04:04 | DI.VRAD_ITS ---
PROCEDURE INFORMATION: Exam: CTA Head With Contrast, Arteriography Exam date and time: 09/15/2023 2:24 AM Age: 62 years old Clinical indication: Headache and speech disturbance and other: Confused; Slurred speech; Additional info: Confused, slurred speech, altered TECHNIQUE: Imaging protocol: Computed tomographic angiography of the head with contrast. Exam focused on the arteries. 3D rendering (Not supervised by radiologist): MIP and/or 3D reconstructed images were created by the technologist. Contrast material: OMNI 350; Contrast volume: 100 ml; Contrast route: INTRAVENOUS (IV); COMPARISON: No relevant prior studies available. FINDINGS: ANTERIOR CIRCULATION: Right internal carotid artery: Intracranial segment is patent with no significant stenosis. No aneurysm. Right middle cerebral artery: No occlusion or significant stenosis. No aneurysm. Right anterior cerebral artery: No occlusion or significant stenosis. No aneurysm. Left internal carotid artery: Intracranial segment is patent with no significant stenosis. No aneurysm. Left middle cerebral artery: No occlusion or significant stenosis. No aneurysm. Left anterior cerebral artery: No occlusion or significant stenosis. No aneurysm. POSTERIOR CIRCULATION: Right vertebral artery: No occlusion or significant stenosis. No aneurysm. Left vertebral artery: No occlusion or significant stenosis. No aneurysm. Basilar artery: No occlusion or significant stenosis. No aneurysm. Right posterior cerebral artery: No occlusion or significant stenosis. No aneurysm. Left posterior cerebral artery: No occlusion or significant stenosis. No aneurysm. Other arteries: Severe anterior intracranial atherosclerotic disease. Brain: Pineal gland calcifications. Choroid plexus calcifications. Mild atrophy of the parenchyma with compensatory dilation of the fluid spaces. Mild asymmetric right frontal lobe white matter hypoattenuation. Cerebral ventricles: Normal variant ventricular anatomy. Paranasal sinuses: Near-complete opacification of the left maxillary sinus. Multichamber sinus mucosal thickening. Bones/joints: Unremarkable. No acute fracture. Soft tissues: Unremarkable. IMPRESSION: 1. No acute intracranial findings. 2. No acute vascular findings. 3. Severe anterior intracranial atherosclerotic disease of the bilateral intracranial internal carotid arteries without significant flow-limiting stenosis. PROCEDURE INFORMATION: Exam: CTA Neck With Contrast Exam date and time: 09/15/2023 2:24 AM Age: 62 years old Clinical indication: Headache and speech disturbance and other: Confused; Slurred speech; Additional info: Confused, slurred speech, altered TECHNIQUE: Imaging protocol: Computed tomographic angiography of the neck with contrast. Exam focused on the cervical segments of the vasculature. 3D rendering (Not supervised by radiologist): MIP and/or 3D reconstructed images were created by the technologist. Contrast material: OMNI 350; Contrast volume: 100 ml; Contrast route: INTRAVENOUS (IV); COMPARISON: US CAROTID 05/30/2019 3:05 PM FINDINGS: Right common carotid artery: 50% stenosis of the right carotid bulb. Right internal carotid artery: Scattered regions of calcified atherosclerotic disease of the right extracranial internal carotid artery without significant stenosis. Right external carotid artery: No occlusion or stenosis of the origin. Left common carotid artery: 50% stenosis of the left carotid bulb. Left internal carotid artery: Scattered regions of calcified atherosclerotic disease of the left extracranial internal carotid artery without significant stenosis. Left external carotid artery: No occlusion or stenosis of the origin. Right vertebral artery: No stenosis. No dissection or occlusion. Left vertebral artery: No stenosis. No dissection or occlusion. Aorta: Mild atherosclerotic disease of the aortic arch. Soft tissues: Normal. No significant soft tissue swelling. Bones/joints: No acute fracture. IMPRESSION: No acute vascular findings. REFERENCES: NASCET CRITERIA. The degree of stenosis in the cervical segment of the internal carotid artery is based on NASCET criteria. Normal is no stenosis. Mild is less than 50% stenosis. Moderate is 50-69% stenosis. Severe is 70% to 99% stenosis. Total occlusion is no detectable patent lumen. Dictated and Authenticated by: Robert Cantrell MD. Ordering:CARLOTTA Collazo MD
== END 2023-09-15 06:08 | disposition home or self-care (01) ==
PROVIDERS: Emergency Provider Student in an Organized Health Care Education/Training Program; PCP Family Medicine
DX: R40.4 Transient alteration of awareness (principal); R53.1 Weakness; E11.319 Type 2 diabetes mellitus with unspecified diabetic retinopathy without macular edema; I10 Essential (primary) hypertension; E78.5 Hyperlipidemia, unspecified; F17.210 Nicotine dependence, cigarettes, uncomplicated; Z11.52 Encounter for screening for COVID-19; Z79.4 Long term (current) use of insulin; Z79.84 Long term (current) use of oral hypoglycemic drugs; Z79.82 Long term (current) use of aspirin
CPT/HCPCS: 70496; 70498; 80053; 82805; 87637; 93005; 99285; 80320; 82140; 84443; 84484; 85025; 85610; 85730; 93010; 99284; J3490

== ENCOUNTER 2023-09-15 19:42 | Emergency (ER) | payer MEDICAID, SELFPAY ==
[2023-09-15] VITALS (68 sets, daily range): BP systolic 56–125; BP diastolic 12–65; PULSE 64–78; RESP 7–24; TEMP 36.5; O2SAT 78–100
--- NOTE | 2023-09-15 19:30 | RT.EKG_ITS ---
APPROVED REPORT Exam: Resting ECG Reason for Exam: High Blood Sugar Patient Location: E HR:75 bpm ECG Measurements Heart Rate 75 AXIS RI 185 P -25 QRSd 113 QRS -22 QT 408 T 74 QTc 455 Conclusion Sinus rhythm...normal P axis, V-rate 60- 99 Low voltage, precordial leads...precordial leads <1.0mV
--- NOTE | 2023-09-15 19:45 | DI.RAD_ITS ---
Exam(s) XR CHEST 2V PA LATERAL EXAM: XR CHEST 2V PA LATERAL CLINICAL HISTORY: dizziness TECHNIQUE: 2D digital imaging was performed. COMPARISON: CR CHEST 2 VIEWS PA,LAT from 06/27/2014 FINDINGS: Exam limited by under penetration. HEART: Normal size. Aorta: Not dilated. PULMONARY VASCULATURE: Normal. LUNGS: Clear. PLEURAL SPACE: No pleural effusion or pneumothorax. BONE:Unremarkable for age. Soft tissues: Unremarkable. IMPRESSION: No acute abnormality. DATA REPOSITORY: RADIATION DOSE DELIVERED:
--- NOTE | 2023-09-15 19:53 | ED.GENADUL_ITS ---
Discharge Plan Discharge Details Chief Complaint: Fall/Non TraumaCriteria Primary Care Provider: Jamilah Harman ED Provider: Mayra Madison Home Meds and New Rx's Prescriptions: No Action Trulicity 1.5 mg/0.5 mL pen injector 1.5 mg subcut QWEEK furosemide 40 mg tablet 40 mg PO DAILY atorvastatin [Lipitor] 40 mg tablet 40 mg PO DAILY hydrocortisone 2.5 % cream 1 applic topical BID PRN insulin glargine [Lantus U-100 Insulin] 100 UNIT/ML solution 42 - 44 units SQ HS aspirin [Lo-Dose Aspirin] 81 MG tablet,delayed release (DR/EC) 81 mg PO DAILY metformin [Glucophage] 1,000 MG tablet 1,000 mg PO BID lisinopril 5 MG tablet 10 mg PO HS insulin aspart U-100 [Novolog PenFill U-100 Insulin] 100 UNIT/ML cartridge SQ DIRECTED Patient Comments: 07/26/18 sliding scale amoxicillin 500 mg capsule 500 mg PO TID Qty: 30 0RF HPI General Date/Time Provider Initiated Documentation: 09/15/23 21:00 . HPI Narrative: Fan is a 62-year-old male with history of HTN, DM, COPD who presents to the emergency department today for evaluation of fall. He reports that he has had lightheadedness with standing since being diagnosed with sinusitis. This even ing he was lightheaded while walking and tripped over a metal divider on the floor, causing him to fall forward and hit the right side of his face on a chest freezer. He denies headache, vision changes, nausea/vomiting. He does report some mild neck discomfort. Denies recent illness such as fever/chills, cough, shortness of breath, chest pain, nausea/vomiting, abdominal pain, change in bowel or bladder function, or change in gait. He was discharged from the emergency department this morning. Denies recent alcohol or drug use. Related Data Home Medications Medication Instructions Recorded Confirmed aspirin 81 mg tablet,delayed 81 mg PO DAILY 07/14/13 09/15/23 release (Lo-Dose Aspirin) insulin glargine 100 unit/mL 42 - 44 units SQ HS 07/14/13 09/15/23 subcutaneous solution (Lantus U-100 Insulin) lisinopril 5 mg tablet 10 mg PO HS 07/14/13 09/15/23 metformin 1,000 mg tablet 1,000 mg PO BID 07/14/13 09/15/23 (Glucophage) insulin aspart U-100 100 unit/mL units SQ DIRECTED 06/27/14 08/26/21 subcutaneous cartridge (Novolog PenFill U-100 Insulin aspart) atorvastatin 40 mg tablet (Lipitor) 40 mg PO DAILY 08/25/21 09/15/23 dulaglutide 1.5 mg/0.5 mL 1.5 mg subcut QWEEK 08/25/21 09/15/23 subcutaneous pen injector (Trulicity) furosemide 40 mg tablet 40 mg PO DAILY 08/25/21 09/15/23 hydrocortisone 2.5 % topical cream 1 applic topical BID PRN 08/25/21 12/22/21 amoxicillin 500 mg capsule 500 mg PO TID #30 caps 09/06/23 09/15/23 Previous Rx's Medication Instructions Recorded amoxicillin 500 mg capsule 500 mg PO TID #30 caps 09/06/23 Allergies Allergy/AdvReac Type Severity Reaction Status Date / Time No Known Allergies Allergy Unverified 09/15/23 00:51 General Stated Complaint: Fall/Non TraumaCriteria JOÃO: 3 Review of Systems Narrative: see HPI Exam Const General: cooperative, healthy appearing, comfortable and no acute distress HENMT Head: normocephalic, no Brooks's sign and no raccoon eyes Ears: hearing grossly normal bilaterally General nose exam: external nose normal Face and sinus: ecchymosis (reddened ecchymosis to R cheek) and no tenderness Mouth: oral mucosae normal Throat: posterior oropharynx normal Eyes General: appearance normal, both eyes and all related structures Eyelids: eyelids normal Conjunctivae: conjunctivae normal Sclera: sclerae normal Pupils: PERRL EOM: EOM intact bilaterally Resp Effort & Inspection: normal respiratory effort and able to speak in complete sentences Auscultation: clear to auscultation bilaterally Cardio Rate: regular rate Rhythm: regular rhythm Neuro General: patient alert, patient awake and patient oriented x3 Cranial Nerves: CN's II-XI intact bilaterally Cognition: normal cognition Speech: speech normal Gait: normal gait (slow gait, able to walk unassisted) Motor: muscle tone normal throughout and strength 5/5 throughout Sensory Exam: no sensory deficits noted Coordination: acopfb-kl-yapi test normal and jixu-rr-[id number] test normal Course Vital Signs Vital signs: Respiratory Effort Normal 09/15/23 19:48 Lab/Test Results Lab/Test Results: 09/15/23 21:25 Blood Blood Culture - Pending 09/15/23 20:18 Blood Blood Culture - Pending Laboratory Tests Range/Units 09/15/23 09/15/23 20:00 20:18 WBC (4.4-10.8) 10^3/uL 10.00 RBC (4.36-5.78) 10^6/uL 4.12 L Hgb (13.5-17.5) g/dL 12.8 L Hct (40.0-50.0) % 37.0 L MCV (80-95) fL 90 MCH (27.0-33.0) pg 31.1 MCHC (32.0-36.0) % 34.6 RDW (11.8-14.1) % 12.4 Plt Count (130-400) 10^3/uL 281 MPV (8.0-11.0) fL 9.9 VBG pH (7.31-7.41) 7.36 VBG pCO2 (41-51) mmHg 48 VBG pO2 mmHg 37 VBG HCO3 (23-28) mmol/L 27 VBG Total CO2 (24-29) mmol/L 25 VBG O2 Saturation % 72 VBG Base Excess (-2-3) mmol/L 1 VBG Lactate (0.6-1.4) mmol/L 2.9 H* Sodium (136-145) mmol/L 134 L Potassium (3.5-5.1) mmol/L 3.7 Chloride (98-107) mmol/L 98 Carbon Dioxide (21.0-32.0) mmol/L 25.8 Anion Gap (3-11) mmol/L 10.2 BUN (7-18) mg/dL 28 H Creatinine (0.70-1.30) mg/dL 1.8 H Est GFR (CKD-EPI 2020) (mL/min/1.73m2) 42.30 Glucose (74-106) mg/dL 80 Calcium (8.5-10.1) mg/dL 9.4 Magnesium (1.8-2.4) mg/dL 2.1 Total Bilirubin (0.2-1.0) mg/dL 0.3 AST (15-37) U/L 17 ALT (16-63) U/L 30 Alkaline Phosphatase (46-116) U/L 133 H Troponin I (< or =60) ng/L < 50 Total Protein (6.4-8.2) g/dL 7.6 Albumin (3.4-5.0) g/dL 3.3 L Medical Decision Making Fan is a 62-year-old male with history of HTN, DM, COPD who presents to the emergency department today for evaluation of fall. He reports that he has had lightheadedness with standing since being diagnosed with sinusitis. This evening he was lightheaded while walking and tripped over a metal divider on the floor, causing him to fall forward and hit the right side of his face on a chest freezer. He denies headache, vision changes, nausea/vomiting. He does report some mild neck discomfort. Denies recent illness such as fever/chills, cough, shortness of breath, chest pain, nausea/vomiting, abdominal pain, change in bowel or bladder function, or change in gait. He was discharged from the emergency department this morning. Denies recent alcohol or drug use. Physical exam reassuring. Patient is alert and oriented x 4. Mild ecchymosis noted to right cheek. PERRL, EOMs intact. Cranial nerves II through XII intact as tested. No raccoon eyes or Brooks sign. No dental damage. Mild tenderness palpation of C-spine, no point tenderness/step-off/deformity. Painless range of motion to neck. Easy work of breathing, lung sounds clear bilaterally. Normal heart sounds. Moderate pedal edema noted bilaterally. Pt does have some difficulty following instructions for eopgig-io-qqqoge exam. 5/5 muscle strength to upper and lower extremities. No obvious JVD. D/dx includes but is not limited to: Intracranial hemorrhage, dehydration, orthostatic hypotension, electrolyte imbalance, medication reaction, hypoglycemia, autonomic dysfunction I independently interpreted the following tests: CBC, VBG, magnesium all reassuring. CMP notable for elevated creatinine 1.8 increased from 1.3 earlier today. Lactate elevated at 2.9, no previous available for comparison. Initial troponin negative. CT head and C-spine both unremarkable. CXR unremarkable, no acute abnormalities. While in the emergency department Fan received 1 L of normal saline, followed by 250 cc/hr. He was PO challenged as well. He was able to ambulate without lightheadedness after receiving IV fluids, says that he is feeling okay, though he reports feeling stiff after laying on the stretcher. Imaging Data Radiologic Study: Radiologist's impression: Head CT without contrast: Impression: No acute intracranial findings, mucoperiosteal thickening in the right consistent with chronic sinus disease, with left maxillary sinus air-fluid level and mucoperiosteal thickening consistent with acute on chronic disease. CT cervical spine without contrast: Impression: Degenerative cervical spine findings, no acute fracture or posttraumatic dislocation Radiologic Study #2: Radiologist's impression: Chest x-ray: Impression: No acute findings Quality:SDOH Health Related Social Needs: No Data to Display PFSH All Active Problems Weakness (Acute) Altered behavior (Acute) Sinusitis (Acute) 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 Low back pain (Chronic) Tobacco abuse (Chronic) Stage 2 moderate COPD by GOLD classification (Chronic) Obstructive sleep apnea (Chronic) Hyperlipidemia (Chronic) Hypertension (Chronic) Diabetes with retinopathy (Chronic) Diabetes mellitus (Chronic) Tendonitis of left rotator cuff (Acute) Subacromial injection: 11/05/18 Status post cataract extraction and insertion of intraocular lens of left eye (Chronic 08/13/18) Status post cataract extraction and insertion of intraocular lens of right eye (Chronic 07/30/18) Medical History Obesity Rotator cuff syndrome of right shoulder Learning disability Leg edema COPD (chronic obstructive pulmonary disease) Diabetic retinopathy Chronic eczematoid otitis externa of right ear Impacted cerumen, right ear Eructation Carpal tunnel syndrome, bilateral Cortical cataract of left eye Nuclear sclerotic cataract of left eye Cortical cataract of right eye Nuclear sclerotic cataract of right eye Family History Father Diabetes Social History Smoking/Tobacco Use Status: Current every day Tobacco Type: cigarettes Smoking risk assessment performed?: Yes Alcohol Intake: former Drug use: Rarely Substance use type: marijuana Do you feel safe at home: Yes Do you feel safe in your relationship?: Yes
[2023-09-15 20:12] LABS: HGB 12.8 g/dL (13.5-17.5); MCH 31.1 pg (27.0-33.0); MCHC 34.6 % (32.0-36.0); MCV 90 fL (80-95); MPV 9.9 fL (8.0-11.0); Platelet Count 281 10^3/uL (130-400); RBC 4.12 10^6/uL (4.36-5.78); RDW 12.4 % (11.8-14.1); RDW-SD 40.3 fL
[2023-09-15 20:25] LABS: BE (Venous) 1 mmol/L (-2-3); HCO3 (Venous) 27 mmol/L (23-28); O2 Sat (Venous) 72 %; TCO2 (Venous) 25 mmol/L (24-29); pCO2 (Venous) 48 mmHg (41-51); pH (Venous) 7.36 (7.31-7.41); pO2 (Venous) 37 mmHg
[2023-09-15 20:28] LABS: Lactate 2.9 mmol/L (0.6-1.4)
[2023-09-15 20:34] LABS: ALT 30 U/L (16-63); AST 17 U/L (15-37); Albumin 3.3 g/dL (3.4-5.0); Alkaline Phosphatase 133 U/L (46-116); Anion Gap 10.2 mmol/L (3-11); BUN 28 mg/dL (7-18); Bilirubin, Total 0.3 mg/dL (0.2-1.0); CO2 25.8 mmol/L (21.0-32.0); CREATININE 1.8 mg/dL (0.70-1.30); Calcium 9.4 mg/dL (8.5-10.1); Chloride 98 mmol/L (98-107); Glucose 80 mg/dL (74-106); Magnesium 2.1 mg/dL (1.8-2.4); Potassium 3.7 mmol/L (3.5-5.1); Sodium 134 mmol/L (136-145); Total Protein 7.6 g/dL (6.4-8.2); Troponin I < 50 ng/L (< or =60)
[2023-09-15] MEDS: Normal Saline 1,000 ML 1000 ML IV (20:34)
--- NOTE | 2023-09-15 20:49 | DI.CT_ITS ---
Exam(s) CT HEAD CERVICAL SPINE WO EXAM: CT HEAD CERVICAL SPINE WO CLINICAL HISTORY: head injury. TECHNIQUE: Imaging Protocol: Axial computed tomography images with coronal and sagittal reformatted images were created and reviewed COMPARISON: CT CT BRAIN NECK CTA from 09/15/2023 FINDINGS: Head CT Ventricles and Extra axial spaces: Normal in size and morphology for the patient's age. Normal vari ant of cavum septum pellucidum. Hemorrhage: None. Cerebral parenchyma: No evidence of mass or acute infarct. Mild white matter changes of small vess el disease. No significant atrophy. Midline shift: None. Brainstem/Cerebellum: Normal. Calvarium: Normal. Visualized Paranasal sinuses/Mastoids: Mucous retention both maxillary sinuses, left greater than rig ht. Opacification of several ethmoid sinuses. Mucous retention in the right frontal sinus. Soft tissues: Unremarkable. Cervical Spine CT BONES: Vertebral body heights are maintained. Alignment is normal. There is no evidence of acute frac ture. Degenerative disc changes and facet degenerative changes are seen . SOFT TISSUES: No paraspinal hematoma. The airway appears intact. No pneumothorax is seen at the lung apices. IMPRESSION: Head CT: No acute abnormality.Sinus disease. C-spine CT: Degenerative changes, no acute abnormality. RADIATION DOSE DELIVERED: Total DLP DATA REPOSITORY: All CT scans at this facility are submitted to the National Radiology Data Registry (NRDR) Dose Index Registry (DIR) with the [employer] (ACR). RADIATION OPTIMIZATION: All CT scans at this facility use at least one of these dose optimization te chniques: automated exposure control; mA and/or kV adjustment per patient size (includes targeted exa ms where dose is matched to clinical indication); or iterative reconstruction.
--- NOTE | 2023-09-15 21:30 | DI.VRAD_ITS ---
PROCEDURE INFORMATION: Exam: XR Chest Exam date and time: 09/15/2023 8:46 PM Age: 62 years old Clinical indication: Injury or trauma; Fall; Other: Dizziness; Blunt trauma (contusions or hematomas); Injury date: 09/15/23 TECHNIQUE: Imaging protocol: Radiologic exam of the chest. Views: 2 views. COMPARISON: CT HEAD CERVICAL SPINE WO 09/15/2023 8:37 PM FINDINGS: Lungs: Unremarkable. No consolidation. Pleural spaces: Unremarkable. No pleural effusion. No pneumothorax. Heart/Mediastinum: Unremarkable. No cardiomegaly. Bones/joints: Unremarkable. IMPRESSION: No acute findings. Dictated and Authenticated by: Cristian Masterson MD. Ordering:KARYNA Nunez MD
--- NOTE | 2023-09-15 21:36 | DI.VRAD_ITS ---
PROCEDURE INFORMATION: Exam: CT Head Without Contrast Exam date and time: 09/15/2023 8:37 PM Age: 62 years old Clinical indication: Injury or trauma; Fall; Blunt trauma (contusions or hematomas); Consciousness not specified; Injury date: 09/15/23; Patient HX: Head injury TECHNIQUE: Imaging protocol: Computed tomography of the head without contrast. Radiation optimization: All CT scans at this facility use at least one of these dose optimization techniques: automated exposure control; mA and/or kV adjustment per patient size (includes targeted exams where dose is matched to clinical indication); or iterative reconstruction. COMPARISON: CT BRAIN NECK CTA 09/15/2023 2:24 AM FINDINGS: Brain: Cerebral atrophy of mild severity. Mgzc-oh-alamuzcq chronic small vessel deep white matter ischemia. No intracranial hemorrhage. No large territory acute CVA. No mass or mass effect. Cerebral ventricles: Ventriculomegaly concordant with atrophy. Incidental cavum septum vergae. Paranasal sinuses: Bilateral maxillary sinusitis. Mucoperiosteal thickening in the right consistent with chronic sinus disease. Left maxillary sinus air-fluid level and mucoperiosteal thickening consistent with acute on chronic disease. Bilateral ethmoid sinus and right frontal sinus chronic disease. Mastoid air cells: Visualized mastoid air cells are well aerated. Bones/joints: Unremarkable. No acute fracture. Soft tissues: Unremarkable. IMPRESSION: 1. No acute intracranial findings. No hemorrhage. 2. Atrophy and chronic small vessel deep white matter ischemia. 3. Atrophy concordant ventriculomegaly. 4. Sinus disease as described above. Left maxillary sinus air-fluid level. 5. No skull fracture. PROCEDURE INFORMATION: Exam: CT Cervical Spine Without Contrast Exam date and time: 09/15/2023 8:37 PM Age: 62 years old Clinical indication: Injury or trauma; Fall; Blunt trauma (contusions or hematomas); Consciousness not specified; Injury date: 09/15/23; Patient HX: Head injury TECHNIQUE: Imaging protocol: Computed tomography of the cervical spine without contrast. Radiation optimization: All CT scans at this facility use at least one of these dose optimization techniques: automated exposure control; mA and/or kV adjustment per patient size (includes targeted exams where dose is matched to clinical indication); or iterative reconstruction. COMPARISON: CT BRAIN NECK CTA 09/15/2023 2:24 AM FINDINGS: Bones/joints: Multilevel degenerative cervical spine change. Severe degenerative disc disease at C3-C4, C5-C6, and C6-C7. Associated facet and uncovertebral joint degeneration. Mid cervical kyphosis which appears to be degenerative. This is at the C5-C6 level. No acute fracture. No dislocation or facet offset. Right-sided severe foraminal stenosis at C3-C4. Left-sided fjgy-rh-uanrkxio foraminal stenosis at C6-C7. Lungs: Lung apices are clear. Vasculature: Bilateral carotid artery atherosclerotic calcium. Soft tissues: Paravertebral soft tissues are unremarkable. IMPRESSION: 1. Degenerative cervical spine findings. 2. No acute fracture or posttraumatic dislocation. 3. Bilateral carotid artery atherosclerotic calcium. Dictated and Authenticated by: Cristian Masterson MD. Ordering:KARYNA Nunez MD
[2023-09-15] MEDS: Normal Saline 250 ML IV (21:40)
[2023-09-15] MEDS: Acetaminophen 325 MG TAB 650 MG PO (22:19)
[2023-09-15] MEDS: Lisinopril 10 MG TAB PO (23:07)
[2023-09-15 23:09] LABS: Lactate 1.9 mmol/L (0.6-1.4)
[2023-09-15 23:22] LABS: Anion Gap 6.7 mmol/L (3-11); BUN 32 mg/dL (7-18); CO2 28.3 mmol/L (21.0-32.0); CREATININE 1.8 mg/dL (0.70-1.30); Calcium 8.7 mg/dL (8.5-10.1); Chloride 99 mmol/L (98-107); Glucose 130 mg/dL (74-106); Potassium 4.2 mmol/L (3.5-5.1); Sodium 134 mmol/L (136-145)
--- NOTE | 2023-09-15 23:28 | NUR.NOTE ---
Referral made to PCP for follow up within the week for multiple visits to ER, fall, weakness, lightheaded. Patient is currently staying in the snf and has no minutes on his phone. Patient was instructed to contact Dr. Welch's office for follow up appt. Put the referral in the manager linux's box for follow up assistance.Nursing Note:
[2023-09-15 23:31] LABS: Troponin I < 50 ng/L (< or =60)
--- NOTE | 2023-09-16 00:34 | W.EDPROG ---
Date of service: 09/16/23 Time of Service: 00:34 Medical Decision Making 62-year-old male signed out to me by my colleague Mayra, please refer to HPI, physical exam, assessment and plan. At time of signout we are awaiting repeat troponin. Repeat troponin has returned normal. Blood pressure stabilized, heart rate stable. Patient did initially appear dehydrated, he was slightly hypotensive on onset. Likely secondary to diminished oral intake. Creatinine shows a slight bump to a creatinine of 1.8, however GFR remained stable at 42. Initial lactate was elevated greater than 2, however after rehydration lactate has normalized. Patient interactive, shows no signs of acute distress, and vital signs stable. Suspect elevated lactate secondary to dehydration which would correlate clinically with his physical exam as well as his initially slightly low blood pressure. With normalization of his vital signs and lactate, and the stabilization of his renal function, I do feel that at this time he is clinically stable and appropriate for discharge with close follow-up with PCP. We have recommended that he hold metformin for the time being secondary to concern for lactic acidosis from metformin use and dehydration. Discussed red flags which to return. I have extensively reviewed the treatment plan and discharge instructions with the patient. I have addressed all patient concerns at this time. The patient was made aware of what symptoms to monitor for that would warrant a return to the emergency department. Discussed the plan with the patient, they demonstrate verbal understanding and agreement with our assessment and plan at this time. The documentation in this chart was dictated using [employer] dictation software. Please excuse any dictation errors. Quality:SDOH Health Related Social Needs: No Data to Display Sign Out Sign Out Data: Sign Out Comment: 62-year-old male presents to the emergency department today after a fall attributed to lightheadedness. Workup reassuring. CXR, head, and C spine CT unremarkable. Lactate was initially elevated at 2.9, decreased to 1.9 after IV fluids. Repeat BMP shows no change in creatinine, which had elevated from 1.3 earlier today to 1.8. Recommend with holding metformin until advised by PCP, repeat labs are indicated. Awaiting repeat troponin. Handoff report given to Dr. Lyman, overnight physician Last updated by Mayra Madison at 09/15/23 23:28 Discharge Plan Disposition Patient Disposition: Home Discharge Details Clinical Impression: Elevated serum creatinine, Head injury Primary Care Provider: Jamilah Harman ED Provider: Zay Lyman Home Meds and New Rx's Prescriptions: No Action Trulicity 1.5 mg/0.5 mL pen injector 1.5 mg subcut QWEEK furosemide 40 mg tablet 40 mg PO DAILY atorvastatin [Lipitor] 40 mg tablet 40 mg PO DAILY hydrocortisone 2.5 % cream 1 applic topical BID PRN insulin glargine [Lantus U-100 Insulin] 100 UNIT/ML solution 42 - 44 units SQ HS aspirin [Lo-Dose Aspirin] 81 MG tablet,delayed release (DR/EC) 81 mg PO DAILY metformin [Glucophage] 1,000 MG tablet 1,000 mg PO BID lisinopril 5 MG tablet 10 mg PO HS insulin aspart U-100 [Novolog PenFill U-100 Insulin] 100 UNIT/ML cartridge SQ DIRECTED Patient Comments: 07/26/18 sliding scale amoxicillin 500 mg capsule 500 mg PO TID Qty: 30 0RF Discharge Instructions Instructions: Head Injury (ED) Additional Instructions: Please call your primary care provider first thing Monday morning to schedule follow-up appointment with repeat labs. Please hold off on taking your metformin until advised by your PCP. I encourage you to get plenty of sleep, eat regular meals throughout the day, and stay well-hydrated. Drink plenty of fluids frequently thoughout the day. Return to emergency care if you develop new chest pain, severe headache, vision changes, episodes of passing out, shortness of breath, or if you are very worried and need to be rechecked again immediately. Referrals: Jamilah Harman MD [Primary Care Provider] -
[2023-09-16 06:20] VITALS: BP 154/49; PULSE 66; RESP 19; TEMP 36.6; O2SAT 99
== END 2023-09-16 06:33 | disposition home or self-care (01) ==
PROVIDERS: Nurse Practitioner Family; Emergency Provider Student in an Organized Health Care Education/Training Program; PCP Family Medicine
DX: S09.90XA Unspecified injury of head, initial encounter (principal); S00.83XA Contusion of other part of head, initial encounter; J44.9 Chronic obstructive pulmonary disease, unspecified; I10 Essential (primary) hypertension; E78.5 Hyperlipidemia, unspecified; R79.89 Other specified abnormal findings of blood chemistry; E11.319 Type 2 diabetes mellitus with unspecified diabetic retinopathy without macular edema; F17.210 Nicotine dependence, cigarettes, uncomplicated; Z79.4 Long term (current) use of insulin; Z79.82 Long term (current) use of aspirin; Z79.84 Long term (current) use of oral hypoglycemic drugs; W01.198A Fall on same level from slipping, tripping and stumbling with subsequent striking against other object, initial encounter; Y93.01 Activity, walking, marching and hiking; Y92.018 Other place in single-family (private) house as the place of occurrence of the external cause
CPT/HCPCS: 00123; 36415; 80048; 80053; 82805; 82962; 85027; 87040; 93005; 96360; 96361; 99285; 70450; 71046; 72125; 83605; 83735; 84484; 93010; 99284

== ENCOUNTER 2023-09-19 18:19 | Inpatient (IN) | payer MEDICAID, SELFPAY ==
[2023-09-19] VITALS (29 sets, daily range): BP systolic 108–162; BP diastolic 51–70; PULSE 68–80; RESP 12–21; TEMP 37.3; O2SAT 89–100
--- NOTE | 2023-09-19 18:15 | RT.EKG_ITS ---
APPROVED REPORT Exam: Resting ECG Reason for Exam: dizziness Patient Location: E HR:74 bpm ECG Measurements Heart Rate 74 AXIS ND 208 P 60 QRSd 111 QRS -1 QT 544 T 70 QTc 605 Conclusion Sinus rhythm...normal P axis, V-rate 60- 99 Prolonged QT interval...QTc >500mS Normal sinus rhythm at a rate of 74. Left axis deviation no signs of LVH based on voltage criteria. Interventricular conduction delay QRS 111 ms. Low voltage chest wall leads. T wave inversion in aV L similar to prior. Prior dated last week. QTc reported as long at 605 ms. First-degree AV block a ppears new compared to prior.
--- NOTE | 2023-09-19 18:23 | W.ED.GENAD ---
Discharge Plan Discharge Details Chief Complaint: Dizzy/Sync Clinical Impression: Hx of falling, Diabetic foot ulcer, Cellulitis of foot, right Primary Care Provider: Jamilah Harman ED Provider: Jeffrey Rodriguez Home Meds and New Rx's Prescriptions: No Action Trulicity 1.5 mg/0.5 mL pen injector 1.5 mg subcut QWEEK furosemide 40 mg tablet 40 mg PO DAILY atorvastatin [Lipitor] 40 mg tablet 40 mg PO DAILY hydrocortisone 2.5 % cream 1 applic topical BID PRN insulin glargine [Lantus U-100 Insulin] 100 UNIT/ML solution 42 - 44 units SQ HS aspirin [Lo-Dose Aspirin] 81 MG tablet,delayed release (DR/EC) 81 mg PO DAILY lisinopril 5 MG tablet 10 mg PO HS insulin aspart U-100 [Novolog PenFill U-100 Insulin] 100 UNIT/ML cartridge SQ DIRECTED Patient Comments: 07/26/18 sliding scale amoxicillin 500 mg capsule 500 mg PO TID Qty: 30 0RF HPI General Date/Time Provider Initiated Documentation: 09/19/23 18:23. HPI Narrative: MDM This is a chronically ill-appearing normothermic and not tachycardic 62-year-old diabetic male with lightheadedness dizziness concerning for multiple etiologies. No black or bloody stools to suggest acute GI bleed. No pain out of proportion to suggest necrotizing soft tissue infection. Patient is not on a fluoroquinolone for recent sinusitis however his ECG is being read as QTc prolongation. There is significant artifact in the initial portion of the ECG and the remainder of the ECG shows that the QT interval is less than half the RR interval reassuring against QTc prolongation. Will repeat ECG. Will assess for any acute electrolyte abnormalities. No chest pain to suggest ACS. I considered PE however the patient denies shortness of breath and is not tachycardic so I did not send a D-dimer. No focal neurological deficits so my suspicion is low for CVA so I did not feel that the patient would be a tPA candidate. No head strike to suggest benefit from CT of her cervical spine as my suspicion was exceedingly low for intracranial hemorrhage. No tonic-clonic activity to suggest seizure so I do not feel the patient requires an EEG. No dysuria no frequency so doubt UTI. No cough or fevers to suggest pneumonia so I did not obtain a chest x-ray. Patient does not appear markedly volume overloaded though he does have some nonpitting lower extremity edema so I did not obtain a proBNP nor provide diuretics. If patient's labs are unremarkable will ensure that he passes an ambulatory trial in the ED. He reports just eating prior to arrival so I do not feel he requires a p.o. trial. No truncal ataxia to suggest posterior circulation CVA. 7:38 PM Patient was unable to ambulate in the emergency department however required assistance and a walker. He does not appear safe for discharge. Will touch base with the patient about staying in the emergency department overnight to have physical therapy evaluate the patient. 7:54 PM Patient had no acute abnormalities on screening labs. He required a walker. There are unfortunately no beds in the hospital. As result we will board the patient in the ED signed the patient out to the oncoming provider and redosed his home lisinopril atorvastatin and NovoLog and glargine. Patient reported that he transiently had a left-sided headache but this is resolved. No visual changes to suggest temporal arteritis. Headache was not sudden in onset so doubt subarachnoid hemorrhage. No neck pain to suggest cervical arterial dissection. I have ordered the patient a regular diet. Given that the patient will stay in the emergency department overnight we will order chest x-ray and AP pelvis film. 10:44 PM On reassessment patient reported some pain in his right foot. On assessment he has what appears to be a diabetic foot ulcer for which I added on ESR and CRP. It is warm tender and erythematous. He also does have a rim of erythema surrounding the ulcer. This certainly could be the cause of his difficulty in ambulating. Will send a wound culture. Will obtain x-ray to assess for any soft tissue gas. Will also order MRI. Patient reports that his ulcers been present for the past several weeks. Will treat with clindamycin and levofloxacin. Feet appear well-perfused so I did not obtain a CT angiogram with runoffs. Overnight provider. Photo of foot ulcer as follows: 11:10 PM Will sign patient out to the oncoming overnight provider. CK elevated at 0.89 mg /dL. ESR elevated at 39 mm/h. Based on the results of the patient's MRI he may or may not benefit from podiatry consultation tomorrow. Chronic conditions affecting the care of the patient: Diabetes heart failure History obtained from an outside historian: Paramedics External record review: No [facility] EMR records Diagnostic interpretations performed by me: Per my independent interpretation EKG shows: ECG #1: Normal sinus rhythm at a rate of 74. Left axis deviation no signs of LVH based on voltage criteria. Interventricular conduction delay QRS 111 ms. Low voltage chest wall leads. T wave inversion in aVL similar to prior. Prior dated last week. QTc reported as long at 605 ms. First-degree AV block appears new compared to prior. ECG #2: Normal sinus rhythm rate of 71. Left axis deviation no signs of LVH based on voltage criteria in aVL. SC interval reported as short but appears to show first-degree AV block similar to prior. QTc now within normal limits. Medications: Home medications Social determinants of health affecting disposition: N/A Management discussed with: [] Treatment/interventions considered: [] Response to therapies provided: [] HPI This is a 62-year-old male with a history of diabetes and heart failure arrived to the emergency department via paramedics in the setting of lightheadedness and dizziness. Patient reports that this is the third episode in the past 5 days. He has been evaluated previously in the emergency department. Paramedics reported that his fingerstick blood glucose was 258. He was dizzy when walking upstairs. He did not fall. He did not lose consciousness. He did not syncopized. He did not hit his head. He has had no black nor bloody stools. He denies chest pain and shortness of breath. No cough. No headache. No weakness. No unintentional weight gain. Denies routine tobacco, ethanol, and illicits. No abdominal pain. Exam General: Chronically ill-appearing in no acute distress speaking in complete sentences. Head: Normocephalic, atraumatic. Eye: Extraocular eye movements intact. No conjunctival injection. No scleral icterus. Ear, nose, mouth, throat: Grossly normal inspection. Normal voice, handling secretions normally. Neck: Trachea midline. Cardiovascular: Well-perfused distal extremities. Regular rate and rhythm Respiratory: Nonlabored respiration. Clear lungs bilaterally Gastrointestinal: Nondistended abdomen. Soft nontender. Musculoskeletal: Mild bilateral lower extremity nonpitting edema. Moving all 4 extremities spontaneously. Skin: Normal for age and race, grossly normal temperature and turgor. No acute rash. Neurologic: Alert and appropriate, no apparent acute deficits. Cranial nerves II through XII intact grossly. 5 out of 5 bilateral upper lower extremity strength. Negative Romberg. Psychiatric: Mood and manner are appropriate. Grooming and personal hygiene are appropriate. Related Data Home Medications Medication Instructions Recorded Confirmed aspirin 81 mg tablet,delayed 81 mg PO DAILY 07/14/13 09/19/23 release (Lo-Dose Aspirin) insulin glargine 100 unit/mL 42 - 44 units SQ HS 07/14/13 09/15/23 subcutaneous solution (Lantus U-100 Insulin) lisinopril 5 mg tablet 10 mg PO HS 07/14/13 09/19/23 insulin aspart U-100 100 unit/mL units SQ DIRECTED 06/27/14 08/26/21 subcutaneous cartridge (Novolog PenFill U-100 Insulin aspart) atorvastatin 40 mg tablet (Lipitor) 40 mg PO DAILY 08/25/21 09/19/23 dulaglutide 1.5 mg/0.5 mL 1.5 mg subcut QWEEK 08/25/21 09/19/23 subcutaneous pen injector (Trulicity) furosemide 40 mg tablet 40 mg PO DAILY 08/25/21 09/19/23 hydrocortisone 2.5 % topical cream 1 applic topical BID PRN 08/25/21 09/19/23 amoxicillin 500 mg capsule 500 mg PO TID #30 caps 09/06/23 09/19/23 Previous Rx's Medication Instructions Recorded amoxicillin 500 mg capsule 500 mg PO TID #30 caps 09/06/23 Allergies Allergy/AdvReac Type Severity Reaction Status Date / Time No Known Allergies Allergy Unverified 09/19/23 18:25 General JOÃO: 3 Medical Decision Making Quality:SDOH Health Related Social Needs: No Data to Display PFSH All Active Problems Cellulitis of foot, right (Acute) Diabetic foot ulcer (Acute) Hx of falling (Acute) Head injury (Acute) Elevated serum creatinine (Acute) Weakness (Acute) Altered behavior (Acute) Sinusitis (Acute) 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 Low back pain (Chronic) Tobacco abuse (Chronic) Stage 2 moderate COPD by GOLD classification (Chronic) Obstructive sleep apnea (Chronic) Hyperlipidemia (Chronic) Hypertension (Chronic) Diabetes with retinopathy (Chronic) Diabetes mellitus (Chronic) Tendonitis of left rotator cuff (Acute) Subacromial injection: 11/05/18 Status post cataract extraction and insertion of intraocular lens of left eye (Chronic 08/13/18) Status post cataract extraction and insertion of intraocular lens of right eye (Chronic 07/30/18) Medical History Obesity Rotator cuff syndrome of right shoulder Learning disability Leg edema COPD (chronic obstructive pulmonary disease) Diabetic retinopathy Chronic eczematoid otitis externa of right ear Impacted cerumen, right ear Eructation Carpal tunnel syndrome, bilateral Cortical cataract of left eye Nuclear sclerotic cataract of left eye Cortical cataract of right eye Nuclear sclerotic cataract of right eye Family History Father Diabetes Social History Smoking/Tobacco Use Status: Current every day Tobacco Type: cigarettes Smoking risk assessment performed?: Yes Alcohol Intake: former Drug use: Rarely Substance use type: marijuana Housing: house Do you feel safe at home: Yes Do you feel safe in your relationship?: Yes
--- NOTE | 2023-09-19 19:00 | RT.EKG_ITS ---
APPROVED REPORT Exam: Resting ECG Reason for Exam: ? QTc Patient Location: E HR:71 bpm ECG Measurements Heart Rate 71 AXIS [place] 70 P 268 QRSd 113 QRS 12 QT 409 T 51 QTc 443 Conclusion Sinus or ectopic atrial rhythm...P axis (-45,135) Normal sinus rhythm rate of 71. Left axis deviation no signs of LVH based on voltage criteria in aVL . KY interval reported as short but appears to show first-degree AV block similar to prior. QTc now within normal limits.
[2023-09-19 19:02] LABS: Abs Immature Grans 0.07 10^3/uL (0.0-0.06); Absolute Eosinophil Count 0.43 10^3/uL (0.0-0.7); Absolute Lymphocyte Count 1.18 10^3/uL (1.2-3.4); Basophils % 0.6; Eosinophils % 3.1; HCT 36.5 % (40.0-50.0); HGB 12.4 g/dL (13.5-17.5); Immature Grans % 0.5; Lymphocytes % 8.4; MCH 31.5 pg (27.0-33.0); MCV 93 fL (80-95); MPV 10.9 fL (8.0-11.0); Monocytes % 6.1; Neutrophils % 81.3; Platelet Count 205 10^3/uL (130-400); RBC 3.94 10^6/uL (4.36-5.78); RDW 12.5 % (11.8-14.1); RDW-SD 41.9 fL; WBC 13.99 10^3/uL (4.4-10.8)
[2023-09-19 19:04] LABS: Absolute Basophil Count 0.08 10^3/uL (0.0-0.2); Absolute Monocyte Count 0.85 10^3/uL (0.1-0.8); Absolute Neutrophil Count 11.37 10^3/uL (1.2-6.7)
[2023-09-19 19:21] LABS: Anion Gap 7.1 mmol/L (3-11); BUN 15 mg/dL (7-18); CO2 30.9 mmol/L (21.0-32.0); CREATININE 1.2 mg/dL (0.70-1.30); Chloride 96 mmol/L (98-107); Creatine Kinase 95 U/L (39-308); Glucose 177 mg/dL (74-106); Potassium 4.1 mmol/L (3.5-5.1); Sodium 134 mmol/L (136-145); Troponin I < 50 ng/L (< or =60)
--- NOTE | 2023-09-19 19:44 | NUR.NOTE ---
Nursing Note walked patient, very unsteady, had him try using a rolling walker , still very undteady.
--- NOTE | 2023-09-19 19:45 | DI.RAD_ITS ---
Exam(s) XR CHEST 1V IN DI DEPT EXAM: XR CHEST 1V IN DI DEPT CLINICAL HISTORY: Weakness TECHNIQUE: 2D digital imaging was performed. COMPARISON: CR,XR XR CHEST 2V PA LATERAL from 09/15/2023 FINDINGS: Exam limited by overlying monitoring leads and under penetration at the lung bases. LUNGS: Grossly clear. No pleural abnormality seen. HEART: Normal size. AORTA: Normal diameter. BONES: Unremarkable for age. Soft tissues: Unremarkable. IMPRESSION: Limited exam. No acute findings. DATA REPOSITORY: RADIATION DOSE DELIVERED:
--- NOTE | 2023-09-19 19:45 | DI.RAD_ITS ---
Exam(s) XR PELVIS AP EXAM: XR PELVIS AP CLINICAL HISTORY: Weakness. TECHNIQUE: 2D digital imaging was performed. Single AP view. COMPARISON: No exams were available for comparison FINDINGS: BONES: No acute fracture is present. No bony destructive lesion is seen. JOINTS: No dislocation present. No joint space narrowing is present. Mild acetabular spurring. SI erich ints and pubic symphysis are unremarkable. SOFT TISSUE: Normal. IMPRESSION: No acute abnormality. DATA REPOSITORY: RADIATION DOSE DELIVERED:
[2023-09-19] MEDS: Insulin Glargine 100 UNITS/ML UNIT 44 UNITS SC (20:44)
[2023-09-19] MEDS: Insulin Aspart 100 UNITS/ML UNIT 33 UNITS SC (20:44)
[2023-09-19] MEDS: Lisinopril 10 MG TAB PO (20:47)
[2023-09-19] MEDS: Acetaminophen 500 MG TAB 1000 MG PO (20:47)
[2023-09-19] MEDS: Atorvastatin 20 MG TAB PO (21:12)
--- NOTE | 2023-09-19 21:44 | DI.VRAD_ITS ---
PROCEDURE INFORMATION: Exam: XR Pelvis Exam date and time: 09/19/2023 9:03 PM Age: 62 years old Clinical indication: Other: Weakness TECHNIQUE: Imaging protocol: Radiologic exam of the pelvis. Views: 1 or 2 view. COMPARISON: No relevant prior studies available. FINDINGS: Bones/joints: Mild degenerative changes within hip joints. No displaced fractures identified. Soft tissues: Status post herniorrhaphy with mesh over the left lower abdomen. IMPRESSION: No acute displaced fractures or dislocations identified. Dictated and Authenticated by: James Hurst MD. Ordering:SENG Murphy MD
--- NOTE | 2023-09-19 21:45 | DI.VRAD_ITS ---
PROCEDURE INFORMATION: Exam: XR Chest Exam date and time: 09/19/2023 8:58 PM Age: 62 years old Clinical indication: Other: Weakness TECHNIQUE: Imaging protocol: Radiologic exam of the chest. Views: 1 view. COMPARISON: CR XR CHEST 2V PA LATERAL 09/15/2023 8:46 PM FINDINGS: Lungs: No consolidation. Pleural spaces: Unremarkable. No pleural effusion. No pneumothorax. Heart/Mediastinum: Unremarkable. No cardiomegaly. Bones/joints: Unremarkable. IMPRESSION: No acute findings. Dictated and Authenticated by: James Hurst MD. Ordering:SENG Murphy MD
--- NOTE | 2023-09-19 22:45 | DI.RAD_ITS ---
Exam(s) XR FOOT RT COMPLETE EXAM: XR FOOT RT COMPLETE CLINICAL HISTORY: Right great toe ulcer diabetic. TECHNIQUE: 2D digital imaging was performed. Three views. COMPARISON: No exams were available for comparison FINDINGS: BONES: No acute fracture is present. No bony destructive lesion is seen. JOINTS: No dislocation present. SOFT TISSUE: Marked soft tissue swelling. Vascular calcifications. IMPRESSION: Soft tissue swelling. No bony erosion identified. DATA REPOSITORY: RADIATION DOSE DELIVERED:
[2023-09-19 22:52] LABS: ESR 39 mm/hr (0-20)
[2023-09-19 22:59] LABS: C-Reactive Protein 0.89 mg/dL (<or=0.5)
[2023-09-19] MEDS: Clindamycin 150 MG CAP 450 MG PO (23:25)
--- NOTE | 2023-09-19 23:29 | ED.PROG_ITS ---
Date of service: 09/19/23 Time of Service: 23:32 Medical Decision Making This patient was signed out to me. Please see previous notes for H&P and initial eval. In brief, 62yo M with frequent falls. Signed out pending PT eval in the morning, MRI for right foot diabetic ulcer with concern for possible osteomyelitis. Ambulated to the bathroom independently overnight. No other significant events. Signed out to oncoming physician, plan remains as above. Quality:[facility] Health Related Social Needs: No Data to Display Sign Out Sign Out Data: Sign Out Comment: History of falling with PT OT and case management consults placed. Also with right foot cellulitis and concern for diabetic foot ulcer for which patient will undergo MRI. Please follow-up right foot x-ray overnight and results of MRI during the day on 09/19. Last updated by Jeffrey Rodriguez MD at 09/19/23 23:12 Sign Out Comment: 62 M, frequent falls. Pending PT eval, right foot MRI for diabetic foot ulcer/possible ostemyelitis. Did ambulate independently overnight. Last updated by Brandi Mccoy MD at 09/20/23 06:58 Discharge Plan Discharge Details Chief Complaint: Dizzy/Sync Clinical Impression: Hx of falling, Diabetic foot ulcer, Cellulitis of foot, right Primary Care Provider: Jamilah Harman ED Provider: Brandi Mccoy Home Meds and New Rx's Prescriptions: No Action Trulicity 1.5 mg/0.5 mL pen injector 1.5 mg subcut QWEEK furosemide 40 mg tablet 40 mg PO DAILY atorvastatin [Lipitor] 40 mg tablet 40 mg PO DAILY hydrocortisone 2.5 % cream 1 applic topical BID PRN insulin glargine [Lantus U-100 Insulin] 100 UNIT/ML solution 42 - 44 units SQ HS aspirin [Lo-Dose Aspirin] 81 MG tablet,delayed release (DR/EC) 81 mg PO DAILY lisinopril 5 MG tablet 10 mg PO HS insulin aspart U-100 [Novolog PenFill U-100 Insulin] 100 UNIT/ML cartridge 1 sliding scale dose subcut DIRECTED Patient Comments: 07/26/18 sliding scale amoxicillin 500 mg capsule 500 mg PO TID Qty: 30 0RF
--- NOTE | 2023-09-19 23:29 | DI.VRAD_ITS ---
PROCEDURE INFORMATION: Exam: XR Right Foot Exam date and time: 09/19/2023 11:17 PM Age: 62 years old Clinical indication: Other: Right great toe ulcer diabetic TECHNIQUE: Imaging protocol: Radiologic exam of the right foot. Views: 3 or more views. COMPARISON: CR XR foot RT complete 12/05/2018 9:11 AM FINDINGS: Bones/joints: Posterior calcaneal enthesophyte. Minimal plantar calcaneal spurring. Mild degenerative changes at the 1st MTP joint. Soft tissues: Cannot rule out mild soft tissue swelling over the forefoot. Vasculature: Vascular atherosclerotic calcifications. IMPRESSION: No acute fractures or dislocations. No aggressive osseous lesions identified. If further evaluation for possible osteomyelitis is desired and provided there are no contraindications, consider MRI of the right foot. Dictated and Authenticated by: James Hurst MD. Ordering:SENG Murphy MD
[2023-09-20 03:07] VITALS: PULSE 70; RESP 12; O2SAT 99
[2023-09-20 03:08] VITALS: BP 138/57; PULSE 69; RESP 16; TEMP 36.3; O2SAT 96
--- NOTE | 2023-09-20 07:00 | DI.MRI_ITS ---
Exam(s) MR LOWER EXTREMITY RT WO/W EXAM: MR LOWER EXTREMITY RT WO/W CLINICAL HISTORY: Right great toe foot ulcer. TECHNIQUE: Multiplanar multisequence MRI was performed. Exam focused on great toe. CONTRAST MATERIAL: IV Contrast: 20 mL of Dotarem contrast administered. COMPARISON: Plain films September 16 FINDINGS: Exam somewhat limited by motion. BONES/JOINTS: No evidence of fracture. Small area of erosion seen at the dorsal aspect of the head o f the proximal phalanx of the great toe with abnormal enhancement, consistent with osteomyelitis. Ed elfego and enhancement extends to involve proximally the distal half of the proximal phalanx. The remai demario bones show normal signal. The sesamoids appear intact. MUSCULOTENDINOUS STRUCTURES: The extensor and flexor tendons appear intact. There is enhancement paula rounding the extensor tendon of the great toe. SOFT TISSUES: Gauze seen dorsally overlying the level of the interphalangeal joint. Soft tissue jayjay a noted in the dorsal soft tissues. Intense enhancement consistent with cellulitis. Focal abscess a t the medial plantar soft tissues, beneath the level of the sesamoids measuring 1.6 x 0.8 by 1.4 cm. IMPRESSION: Findings consistent with osteomyelitis involving the distal aspect of the proximal phalanx of the gre at toe. Additional abscess seen in the medial, plantar soft tissues near the level of the sesamoids. The sesamoids show normal signal. Findings called to Dr. Carlton of the emergency department. DATA REPOSITORY:
[2023-09-20 07:13] VITALS: BP 126/50; PULSE 65; TEMP 36.6; O2SAT 99
[2023-09-20] MEDS: Furosemide 20 MG TAB 40 MG PO (07:49)
[2023-09-20] MEDS: Clindamycin 150 MG CAP 450 MG PO (07:49)
[2023-09-20] MEDS: Ciprofloxacin 500 MG TAB 750 MG PO (07:49)
--- NOTE | 2023-09-20 09:38 | PT.INNT ---
PT Notes Visit Reasons: Calex/light-headed/dizzy Per Dr. Rodriguez, patient just walked to the bathroom from his room without any assistance. PT order cancelled by . No skilled services needed.
[2023-09-20] MEDS: Normal Saline Flush 10 ML SYR IVP (12:04)
[2023-09-20] MEDS: Gadoterate meglumine 20 ML SYRINGE IVP (12:05)
--- NOTE | 2023-09-20 14:30 | ED.PROG_ITS ---
Date of service: 09/20/23 Time of Service: 14:30 Medical Decision Making Patient signed out to me pending MRI of his right lower foot. Stable throughout the shift, MRI does show evidence of osteomyelitis of the right great toe with a small abscess. Discussed with hospitalist plan for admit with IV antibiotics. Podiatry is out of the office this week, [facility] but they are in a meeting waiting callback for consult from them. Quality:[facility] Health Related Social Needs: No Data to Display Sign Out Sign Out Data: Sign Out Comment: History of falling with PT OT and case management consults placed. Also with right foot cellulitis and concern for diabetic foot ulcer for which patient will undergo MRI. Please follow-up right foot x-ray overnight and results of MRI during the day on 09/19. Last updated by Jeffrey Rodriguez MD at 09/19/23 23:12 Sign Out Comment: 62 M, frequent falls. Pending PT eval, right foot MRI for diabetic foot ulcer/possible ostemyelitis. Did ambulate independently overnight. Last updated by Brandi Mccoy MD at 09/20/23 06:58 Discharge Plan Disposition Patient Disposition: Admit to [facility] Condition: Stable Discharge Details Chief Complaint: Dizzy/Sync Clinical Impression: Hx of falling, Diabetic foot ulcer, Cellulitis of foot, right, Acute osteomyelitis of right ankle or foot Primary Care Provider: Jamilah Harman ED Provider: Margarito Carlton Home Meds and New Rx's Prescriptions: No Action Trulicity 1.5 mg/0.5 mL pen injector 1.5 mg subcut QWEEK furosemide 40 mg tablet 40 mg PO DAILY atorvastatin [Lipitor] 40 mg tablet 40 mg PO DAILY hydrocortisone 2.5 % cream 1 applic topical BID PRN insulin glargine [Lantus U-100 Insulin] 100 UNIT/ML solution 42 - 44 units SQ HS aspirin [Lo-Dose Aspirin] 81 MG tablet,delayed release (DR/EC) 81 mg PO DAILY lisinopril 5 MG tablet 10 mg PO HS insulin aspart U-100 [Novolog PenFill U-100 Insulin] 100 UNIT/ML cartridge 1 sliding scale dose subcut DIRECTED Patient Comments: 07/26/18 sliding scale amoxicillin 500 mg capsule 500 mg PO TID Qty: 30 0RF
--- NOTE | 2023-09-20 14:35 | W.PM.HP.N ---
Date of service: 09/20/23 Time of Service: 14:35 Assessment and Plan Assessment and plan (1) Acute osteomyelitis of right ankle or foot: Status: Acute Assessment and plan: continue vancomycin and zosyn podiatry/ortho consult wound culture pending (2) Diabetes mellitus: Status: Chronic Assessment and plan: poorly controlled with A1C 10.5 continue basal insulin at 40 units at hs, adjust as needed sliding scale ac/hs diabetic diet with diabetes education (3) COPD (chronic obstructive pulmonary disease): Status: Chronic Assessment and plan: stable with no exacerbation (4) Hypertension: Status: Chronic Assessment and plan: continue lisinopril and monitor (5) Hyperlipidemia: Status: Chronic Assessment and plan: continue atorvastatin (6) Obstructive sleep apnea: Status: Chronic Assessment and plan: ? treated History of Present Illness History of Present Illness Chief Complaint: osteomyelitis right great toe Narrative: This is a 62 year old morbidly obese male with a history of diabetes COPD obstructive sleep apnea hypertension dyslipidemia who lives in a homeless retirement presented to the emergency department with a lesion on his right great. Review of Systems All systems reviewed & are unremarkable except as noted in HPI and below PFSH All Active Problems Osteomyelitis of great toe of right foot (Acute) COPD (chronic obstructive pulmonary disease) (Chronic) Acute osteomyelitis of right ankle or foot (Acute) Cellulitis of foot, right (Acute) Diabetic foot ulcer (Acute) Hx of falling (Acute) Head injury (Acute) Elevated serum creatinine (Acute) Weakness (Acute) Altered behavior (Acute) Sinusitis (Acute) 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 Low back pain (Chronic) Tobacco abuse (Chronic) Stage 2 moderate COPD by GOLD classification (Chronic) Obstructive sleep apnea (Chronic) Hyperlipidemia (Chronic) Hypertension (Chronic) Diabetes with retinopathy (Chronic) Diabetes mellitus (Chronic) Tendonitis of left rotator cuff (Acute) Subacromial injection: 11/05/18 Status post cataract extraction and insertion of intraocular lens of left eye (Chronic 08/13/18) Status post cataract extraction and insertion of intraocular lens of right eye (Chronic 07/30/18) Medical History Obesity Rotator cuff syndrome of right shoulder Learning disability Leg edema COPD (chronic obstructive pulmonary disease) Diabetic retinopathy Chronic eczematoid otitis externa of right ear Impacted cerumen, right ear Eructation Carpal tunnel syndrome, bilateral Cortical cataract of left eye Nuclear sclerotic cataract of left eye Cortical cataract of right eye Nuclear sclerotic cataract of right eye Family History Father Diabetes Social History Smoking/Tobacco Use Status: Current every day Tobacco Type: cigarettes Smoking risk assessment performed?: Yes Alcohol Intake: former Drug use: Rarely Substance use type: marijuana Housing: homeless Do you feel safe at home: Yes Do you feel safe in your relationship?: Yes Meds Allergies and Home Medications Allergies Allergy/AdvReac Type Severity Reaction Status Date / Time No Known Allergies Allergy Unverified 09/19/23 18:25 Home Medications Medication Instructions Recorded Confirmed Type aspirin 81 mg tablet,delayed 81 mg PO DAILY 07/14/13 09/19/23 History release (Lo-Dose Aspirin) insulin aspart U-100 100 unit/mL 1 sliding scale dose subcut 06/27/14 09/20/23 History subcutaneous cartridge (Novolog DIRECTED PenFill U-100 Insulin aspart) atorvastatin 40 mg tablet (Lipitor) 40 mg PO DAILY 08/25/21 09/19/23 History furosemide 40 mg tablet 40 mg PO DAILY 08/25/21 09/19/23 History hydrocortisone 2.5 % topical cream 1 applic topical BID PRN 08/25/21 09/19/23 History amoxicillin 500 mg capsule 500 mg PO TID #30 caps 09/06/23 09/19/23 Rx blood-glucose sensor (Dexcom G7 09/20/23 09/20/23 History Sensor device) dulaglutide 4.5 mg/0.5 mL 4.5 mg subcut .WEEKLY 09/20/23 09/20/23 History subcutaneous pen injector (Trulicity) insulin glargine 100 unit/mL (3 44 unit subcut QPM 09/20/23 09/20/23 History mL) subcutaneous pen (Lantus Solostar U-100 Insulin) lisinopril 20 mg tablet 20 mg PO DAILY 09/20/23 09/20/23 History metformin 1,000 mg tablet 1,000 mg PO BID 09/20/23 09/20/23 History Exam Const General: cooperative, healthy appearing, comfortable and no acute distress [facility] Head: normocephalic Ears: hearing grossly normal bilaterally General nose exam: external nose normal Face and sinus: no tenderness Mouth: oral mucosae normal Eyes General: appearance normal, both eyes and all related structures Eyelids: eyelids normal Conjunctivae: conjunctivae normal Sclera: sclerae normal Pupils: PERRL EOM: EOM intact bilaterally Resp Effort & Inspection: normal respiratory effort and able to speak in complete sentences Auscultation: clear to auscultation bilaterally Cardio Rate: regular rate Rhythm: regular rhythm Neuro General: patient alert, patient awake and patient oriented x3 Cognition: normal cognition Speech: speech normal Gait: normal gait (slow gait, able to walk unassisted) Motor: muscle tone normal throughout and strength 5/5 throughout Results Labs 09/19/23 18:45 09/19/23 18:45 Labs: Laboratory Results - last 24 hr 09/19/23 18:45 WBC 13.99 H RBC 3.94 L Hgb 12.4 L Hct 36.5 L MCV 93 MCH 31.5 MCHC 34.0 RDW 12.5 Plt Count 205 MPV 10.9 Immature Gran % 0.5 Neutrophils % 81.3 Lymphocytes % 8.4 Monocytes % 6.1 Eosinophils % 3.1 Basophils % 0.6 Nucleated RBC % 0.0 Absolute Neutrophils 11.37 H Absolute Lymphocytes 1.18 L Absolute Monocytes 0.85 H Absolute Eosinophils 0.43 Absolute Basophils 0.08 ESR 39 H Sodium 134 L Potassium 4.1 Chloride 96 L Carbon Dioxide 30.9 Anion Gap 7.1 BUN 15 Creatinine 1.2 Est GFR (CKD-EPI 2020) 68.80 Glucose 177 H Calcium 9.0 Creatine Kinase 95 Troponin I < 50 C-Reactive Protein 0.89 H Last Vital Signs Temp 36.6 C 09/20/23 07:13 Pulse 65 09/20/23 07:13 Resp 16 09/20/23 03:08 BP 126/50 L 09/20/23 07:13 Pulse Ox 99 09/20/23 07:13 Time Spent Time spent with Patient: 40-54 minutes Time was spent: preparing to see the patient(eg.review tests), obtaining and/or reviewing separately otained hiistory, ordering medications,tests, procedures, indepentently interpreting results, counseling the patient and care coordination
[2023-09-20] MEDS: PIPERACILLIN/TAZO 4.5 GM in Normal Saline 100 ML IVPB (14:45)
[2023-09-20] MEDS: VANCOMYCIN/WATER (PEG) 2 GM/400 ML BAG IVPB (15:17)
[2023-09-20 16:06] VITALS: BP 126/60; PULSE 75; RESP 22; TEMP 35.9; O2SAT 98
[2023-09-20 16:07] VITALS: BP 126/60; PULSE 75; RESP 22; TEMP 35.9; O2SAT 98
--- NOTE | 2023-09-20 16:39 | W.ORTHOCONSU ---
Assessment and Plan Assessment and plan (1) Osteomyelitis of great toe of right foot: Status: Acute Assessment and plan: 62-year-old male with Right great toe osteomyelitis, surrounding soft tissue infection, and small abscess in the setting of diabetes Challenging historian. Unclear duration of toe symptoms. Per patient, somewhat recent. Denies any prior foot and ankle problems. Denies diabetic neuropathy, denies any numbness tingling or altered sensation. States he has had issues with diabetic blood sugar control. Comfortable, does not complain of any pain, unclear drainage, unclear details about the great toe. Comfortable, conversant, nontoxic-appearing. Right foot examined: Great toe with mild generalized edema mostly MTP joint distally, mild pinkness, not really redness, dorsal skin breakdown over the IP joint without any purulence, no clear surrounding cellulitis but mild skin induration. Cap refill seems brisk and appropriate. No other skin breakdown on the toe appreciated. Moderately tender about the IP joint/distal phalanx about the area of skin breakdown and infection, but no tenderness on repeat testing more proximally MTP joint, plantar sesamoids, and readily demonstrates great toe flexion extension without difficulty. Right foot MRI shows small amount of osteomyelitis distal aspect great toe proximal phalanx with surrounding fluid as well as probable small abscess more proximally about the plantar MTP joint sesamoids. WBC improved compared to couple days ago, mildly elevated inflammatory markers, hemoglobin A1c markedly elevated at 10.5. Afebrile Recommend medical optimization of diabetes, antibiotics for great toe infection, elevation, and local wound care. Appears minimally symptomatic and currently improving on recent treatments. Reviewed with patient. High risk for persistent infection, recurrent infection, and future amputations given uncontrolled diabetes and complicating social factors. I do not see any reason for urgent surgery at this time. Again, I do not routinely manage diabetic feet. Recommend consultation with podiatry here or podiatry/vascular surgery/foot and ankle surgery elsewhere for future follow-up and management. PFSH All Active Problems Osteomyelitis of great toe of right foot (Acute) COPD (chronic obstructive pulmonary disease) (Chronic) Acute osteomyelitis of right ankle or foot (Acute) Cellulitis of foot, right (Acute) Diabetic foot ulcer (Acute) Hx of falling (Acute) Head injury (Acute) Elevated serum creatinine (Acute) Weakness (Acute) Altered behavior (Acute) Sinusitis (Acute) 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 Low back pain (Chronic) Tobacco abuse (Chronic) Stage 2 moderate COPD by GOLD classification (Chronic) Obstructive sleep apnea (Chronic) Hyperlipidemia (Chronic) Hypertension (Chronic) Diabetes with retinopathy (Chronic) Diabetes mellitus (Chronic) Tendonitis of left rotator cuff (Acute) Subacromial injection: 11/05/18 Status post cataract extraction and insertion of intraocular lens of left eye (Chronic 08/13/18) Status post cataract extraction and insertion of intraocular lens of right eye (Chronic 07/30/18) Medical History Obesity Rotator cuff syndrome of right shoulder Learning disability Leg edema COPD (chronic obstructive pulmonary disease) Diabetic retinopathy Chronic eczematoid otitis externa of right ear Impacted cerumen, right ear Eructation Carpal tunnel syndrome, bilateral Cortical cataract of left eye Nuclear sclerotic cataract of left eye Cortical cataract of right eye Nuclear sclerotic cataract of right eye Family History Father Diabetes Social History Smoking/Tobacco Use Status: Current every day Tobacco Type: cigarettes Smoking risk assessment performed?: Yes Alcohol Intake: former Drug use: Rarely Substance use type: marijuana Housing: homeless Do you feel safe at home: Yes Do you feel safe in your relationship?: Yes Results Last Vital Signs Temp 96.6 F L 09/20/23 16:07 Pulse 75 09/20/23 16:07 Resp 22 09/20/23 16:07 BP 126/60 09/20/23 16:07 Pulse Ox 98 09/20/23 16:07 Labs 09/21/23 06:09 09/21/23 06:09 Labs: Laboratory Results - last 24 hr 09/19/23 18:45 WBC 13.99 H RBC 3.94 L Hgb 12.4 L Hct 36.5 L MCV 93 MCH 31.5 MCHC 34.0 RDW 12.5 Plt Count 205 MPV 10.9 Immature Gran % 0.5 Neutrophils % 81.3 Lymphocytes % 8.4 Monocytes % 6.1 Eosinophils % 3.1 Basophils % 0.6 Nucleated RBC % 0.0 Absolute Neutrophils 11.37 H Absolute Lymphocytes 1.18 L Absolute Monocytes 0.85 H Absolute Eosinophils 0.43 Absolute Basophils 0.08 ESR 39 H Sodium 134 L Potassium 4.1 Chloride 96 L Carbon Dioxide 30.9 Anion Gap 7.1 BUN 15 Creatinine 1.2 Est GFR (CKD-EPI 2020) 68.80 Glucose 177 H Calcium 9.0 Creatine Kinase 95 Troponin I < 50 C-Reactive Protein 0.89 H
[2023-09-20] MEDS: Enoxaparin 40 MG/0.4 ML SYR SC (22:16)
[2023-09-20] MEDS: Lisinopril 5 MG TAB 10 MG PO (22:18)
[2023-09-20] MEDS: Insulin Glargine 300 UNITS/3 ML PEN 40 UNITS SC (22:45)
[2023-09-20 23:37] VITALS: BP 139/74; PULSE 61; RESP 17; TEMP 36.7; O2SAT 97
[2023-09-21] MEDS: PIPERACILLIN/TAZO 4.5 GM in Normal Saline 100 ML IVPB ×3 (00:27→22:00)
[2023-09-21] MEDS: Normal Saline Flush 10 ML SYR IVP ×3 (00:28→22:12)
[2023-09-21 06:43] LABS: Abs Immature Grans 0.03 10^3/uL (0.0-0.06); Absolute Basophil Count 0.07 10^3/uL (0.0-0.2); Absolute Eosinophil Count 0.47 10^3/uL (0.0-0.7); Absolute Lymphocyte Count 1.14 10^3/uL (1.2-3.4); Absolute Monocyte Count 0.67 10^3/uL (0.1-0.8); Absolute Neutrophil Count 3.72 10^3/uL (1.2-6.7); Basophils % 1.1; Eosinophils % 7.7; HCT 33.8 % (40.0-50.0); HGB 11.8 g/dL (13.5-17.5); Immature Grans % 0.5; Lymphocytes % 18.7; MCH 31.3 pg (27.0-33.0); MCHC 34.9 % (32.0-36.0); MCV 90 fL (80-95); RBC 3.77 10^6/uL (4.36-5.78); RDW 12.6 % (11.8-14.1); RDW-SD 41.6 fL
[2023-09-21 06:52] LABS: Anion Gap 9.8 mmol/L (3-11); BUN 20 mg/dL (7-18); CO2 24.2 mmol/L (21.0-32.0); CREATININE 1.1 mg/dL (0.70-1.30); Calcium 8.8 mg/dL (8.5-10.1); Chloride 99 mmol/L (98-107); Estimated GFR 76.37 (mL/min/1.73m2); Glucose 207 mg/dL (74-106); Potassium 4.7 mmol/L (3.5-5.1); Sodium 133 mmol/L (136-145)
[2023-09-21 08:11] VITALS: BP 99/76; PULSE 61; RESP 16; TEMP 35.9; O2SAT 97
[2023-09-21] MEDS: Aspirin E.C. 81 MG TABEC PO (08:45)
[2023-09-21] MEDS: Insulin Aspart 300 UNITS/3 ML PEN SC ×3 (08:45→17:07)
[2023-09-21] MEDS: Furosemide 20 MG TAB 40 MG PO (08:45)
[2023-09-21] MEDS: Atorvastatin 40 MG TAB PO (08:45)
[2023-09-21 09:45] LABS: Vancomycin, Random 8.3 ug/mL
[2023-09-21] MEDS: VANCOMYCIN/WATER (PEG) 1.25 GM/250 ML BAG IVPB (11:49)
[2023-09-21] MEDS: Enoxaparin 40 MG/0.4 ML SYR SC ×2 (12:02→20:29)
--- NOTE | 2023-09-21 12:05 | W.PM.PROGNOT ---
Date of Service Date of service: 09/21/23 Time of Service: 12:05 Assessment and Plan Assessment and plan (1) Acute osteomyelitis of right ankle or foot: Status: Acute Assessment and plan: continue vancomycin and zosyn day 2 podiatry/ortho consult, will continue with medical management for now, anticipate 6 weeks wound culture pending to help guide treatment (2) Diabetes mellitus: Status: Chronic Assessment and plan: poorly controlled with A1C 10.5, today finger sticks 195-262 continue basal insulin with increase to 50 units (from 40) at hs, adjust as needed sliding scale ac/hs diabetic diet with diabetes education (3) COPD (chronic obstructive pulmonary disease): Status: Chronic Assessment and plan: stable with no exacerbation (4) Hypertension: Status: Chronic Assessment and plan: continue lisinopril and monitor (5) Hyperlipidemia: Status: Chronic Assessment and plan: continue atorvastatin (6) Obstructive sleep apnea: Status: Chronic Assessment and plan: has not had his machine for years, states he threw it out. discussed with Dr Koch Subjective Subjective Patient reports: no new complaints, tolerating liquids well, tolerating a regular diet and afebrile Exam Const General: cooperative, healthy appearing, comfortable and no acute distress HENMT Head: normocephalic Ears: hearing grossly normal bilaterally General nose exam: external nose normal Face and sinus: no tenderness Mouth: oral mucosae normal Eyes General: appearance normal, both eyes and all related structures Eyelids: eyelids normal Conjunctivae: conjunctivae normal Sclera: sclerae normal Pupils: PERRL EOM: EOM intact bilaterally Resp Effort & Inspection: normal respiratory effort and able to speak in complete sentences Auscultation: clear to auscultation bilaterally Cardio Rate: regular rate Rhythm: regular rhythm Neuro General: patient alert, patient awake and patient oriented x3 Cognition: normal cognition Speech: speech normal Gait: normal gait (slow gait, able to walk unassisted) Motor: muscle tone normal throughout and strength 5/5 throughout Objective Last Vital Signs Temp 35.9 C L 09/21/23 08:11 Pulse 61 09/21/23 08:11 Resp 16 09/21/23 08:11 BP 99/76 L 09/21/23 08:11 Pulse Ox 97 09/21/23 08:11 Laboratory Results - last 24 hr 09/21/23 09/21/23 06:09 09:10 WBC 6.10 RBC 3.77 L Hgb 11.8 L Hct 33.8 L MCV 90 MCH 31.3 MCHC 34.9 RDW 12.6 Plt Count MPV Immature Gran % 0.5 Neutrophils % 61.0 Lymphocytes % 18.7 Monocytes % 11.0 Eosinophils % 7.7 Basophils % 1.1 Nucleated RBC % 0.0 Absolute Neutrophils 3.72 Absolute Lymphocytes 1.14 L Absolute Monocytes 0.67 Absolute Eosinophils 0.47 Absolute Basophils 0.07 Sodium 133 L Potassium 4.7 Chloride 99 Carbon Dioxide 24.2 Anion Gap 9.8 BUN 20 H Creatinine 1.1 Est GFR (CKD-EPI 2020) 76.37 Glucose 207 H Calcium 8.8 Random Vancomycin 8.3 Time Spent with Patient Time Spent with Patient: 35-49 minutes Time was spent: preparing to see the patient(eg.review tests), obtaining and/or reviewing separately otained hiistory, ordering medications,tests, procedures, indepentently interpreting results and counseling the patient
[2023-09-21 15:06] VITALS: BP 122/60; PULSE 62; RESP 16; TEMP 36.3; O2SAT 100
--- NOTE | 2023-09-21 15:42 | PHA.REVIEW2 ---
Pharmacy Admission Review Admission Clinical Review Admission Pharmacy Review: Osteomyelitis of great toe of right foot (Acute) Acute osteomyelitis of right ankle or foot (Acute) Cellulitis of foot, right (Acute) Diabetic foot ulcer (Acute) Hx of falling (Acute) No Known Allergies Allergy (Unverified 09/19/23 18:25) Resuscitation Status Full Code Height 6 ft Weight 128.82 kg Pharmacy Admission Review Renal Dosing Renal Dosing: BUN 20 mg/dL (7-18) H 09/21/23 06:09 Creatinine 1.1 mg/dL (0.70-1.30) 09/21/23 06:09 Medications needing adjustments: Reviewed (CrCl 97.84 mL/min) Anticoagulation Anticoagulation: Hgb 11.8 g/dL (13.5-17.5) L 09/21/23 06:09 Hct 33.8 % (40.0-50.0) L 09/21/23 06:09 Plt Count 10^3/uL (130-400) 09/21/23 06:09 Creatinine 1.1 mg/dL (0.70-1.30) 09/21/23 06:09 DVT Prophylaxis: Reviewed Medications: Enoxaparin (40mg BID for BMI) Relevant Labs Relevant Labs: ESR 39 mm/hr (0-20) H 09/19/23 18:45 Sodium 133 mmol/L (136-145) L 09/21/23 06:09 Potassium 4.7 mmol/L (3.5-5.1) 09/21/23 06:09 Chloride 99 mmol/L (98-107) 09/21/23 06:09 C-Reactive Protein 0.89 mg/dL (<or=0.5) H 09/19/23 18:45 Electrolytes, C-Reactive P, ESR: Reviewed (Na 133, BUN increased from 15 to 20, Hgb decreased from 12.4 to 11.8) DM Control DM Control: Glucose 207 mg/dL (74-106) H 09/21/23 06:09 Finger Stick Blood Glucose 262 1149 Finger Stick Blood Glucose 262 1130 Finger Stick Blood Glucose 262 1130 Finger Stick Blood Glucose 195 0845 DM Control: Reviewed Insulin Dosing, Diabetic Medication: Has order for SS insulin and glargine 50 units at bedtime. Home meds Trulicity and metformin are on hold while inpatient. Cardiac Review Cardiac Review: Troponin I < 50 ng/L (< or =60) 09/19/23 18:45 BP, HR, EF%: Reviewed (BP/HR WNL) QTc Review QTc: Reviewed (443 from 09/19/23) IV to PO Switch IV Medications: Reviewed (Zosyn and vancomycin) Home Meds Home Med List reviewed: Reviewed Relevent Home Meds Not ordered & why?: Metformin (hold - cover with SS insulin) and Trulicity (hold - cover with SS insulin) Current Meds Current Medication Order Review: Reviewed Pharmacy Antibiotic Review Pharmacy Antibiotic Activity: Abx regimen adjustment and C/S review Comments: Patient continues on Zosyn and vancomycin day 2 for osteomyelitis of right great toe. Vancomycin level was 8.3 from today at 0910. Changed dose to 1250mg q12h for predicted AUC of 541 and trough of 18.1. Reschedule trough for 2100 today (prior to next dose). WBC decreased from 13.99 to 6.1. Wound culture from foot growing gram positive and gram negative humera.
--- NOTE | 2023-09-21 16:58 | INITIAL_ITS ---
Date of service: 09/21/23 Time of Service: 16:58 Care Management Initial Assmt Initial Assessment REASON FOR HOSPITALIZATION:: Osteomyelitis right great toe PREVIOUS FUNCTIONAL STATUS/SOCIAL/FAMILY SUPPORTS:: Resides in [facility] in half-way housing. Independent at baseline in the community. CURRENT FUNCTIONAL STATUS:: Fan is up ambulating in the room, he is eating well and pleasant in interaction, strengths include outreaching well for resources in the community and seeking support services. ADVANCE DIRECTIVES:: None on file. Has patient been provided with info about the portal/API?: No Did the patient sign up for the portal?: No CODE STATUS:: Full Code INSURANCE COVERAGE / FINANCIAL ISSUES:: Medicaid: ACO PRIMARY CARE PHYSICIAN:: Jamilah Harman PATIENT/FAMILY EDUCATION NEEDS:: Review discharge instructions, discuss Ask Me Three. ANTICIPATED BARRIERS TO DISCHARGE:: None identified. TRANSPORTATION:: Dependent on mobility and disposition. PLAN:: Anticipate Fan will require group home IV ABX to treat osteomyelitis of his great right toe. Awaiting podiatry consult, and further guidance to determine discharge planning considerations including optimal treatment course and possible wound care. CM continues to follow. PFSH All Active Problems Osteomyelitis of great toe of right foot (Acute) COPD (chronic obstructive pulmonary disease) (Chronic) Acute osteomyelitis of right ankle or foot (Acute) Cellulitis of foot, right (Acute) Diabetic foot ulcer (Acute) Hx of falling (Acute) Head injury (Acute) Elevated serum creatinine (Acute) Weakness (Acute) Altered behavior (Acute) Sinusitis (Acute) 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 Low back pain (Chronic) Tobacco abuse (Chronic) Stage 2 moderate COPD by GOLD classification (Chronic) Obstructive sleep apnea (Chronic) Hyperlipidemia (Chronic) Hypertension (Chronic) Diabetes with retinopathy (Chronic) Diabetes mellitus (Chronic) Tendonitis of left rotator cuff (Acute) Subacromial injection: 11/05/18 Status post cataract extraction and insertion of intraocular lens of left eye (Chronic 08/13/18) Status post cataract extraction and insertion of intraocular lens of right eye (Chronic 07/30/18) Medical History Obesity Rotator cuff syndrome of right shoulder Learning disability Leg edema COPD (chronic obstructive pulmonary disease) Diabetic retinopathy Chronic eczematoid otitis externa of right ear Impacted cerumen, right ear Eructation Carpal tunnel syndrome, bilateral Cortical cataract of left eye Nuclear sclerotic cataract of left eye Cortical cataract of right eye Nuclear sclerotic cataract of right eye Family History Father Diabetes Social History Smoking/Tobacco Use Status: Current every day Tobacco Type: cigarettes Smoking risk assessment performed?: Yes Alcohol Intake: former Drug use: Rarely Substance use type: marijuana Housing: homeless Do you feel safe at home: Yes Do you feel safe in your relationship?: Yes SDOH(Care Management) Screening Will the Patient Participate in the Screening?: Declined to provide
[2023-09-21] MEDS: Lisinopril 5 MG TAB 10 MG PO (20:29)
[2023-09-21] MEDS: Insulin Glargine 300 UNITS/3 ML PEN 50 UNITS SC (20:29)
[2023-09-21 21:47] LABS: Vancomycin, Trough 13.1 ug/mL (10.0-20.0)
[2023-09-21] MEDS: VANCOMYCIN/WATER (PEG) 1.75 GM/350 ML BAG IVPB (23:20)
[2023-09-22 00:40] VITALS: BP 126/64; PULSE 62; RESP 17; TEMP 35.4; O2SAT 98
[2023-09-22] MEDS: PIPERACILLIN/TAZO 4.5 GM in Normal Saline 100 ML IVPB ×3 (05:46→23:00)
[2023-09-22 07:01] LABS: Abs Immature Grans 0.03 10^3/uL (0.0-0.06); Absolute Eosinophil Count 0.62 10^3/uL (0.0-0.7); Absolute Lymphocyte Count 1.49 10^3/uL (1.2-3.4); Absolute Monocyte Count 0.59 10^3/uL (0.1-0.8); Absolute Neutrophil Count 3.85 10^3/uL (1.2-6.7); Basophils % 1.5; Eosinophils % 9.3; HCT 35.2 % (40.0-50.0); HGB 12.1 g/dL (13.5-17.5); Immature Grans % 0.4; Lymphocytes % 22.3; MCH 31.8 pg (27.0-33.0); MCHC 34.4 % (32.0-36.0); MCV 92 fL (80-95); Monocytes % 8.8; Neutrophils % 57.7; Platelet Count 213 10^3/uL (130-400); RBC 3.81 10^6/uL (4.36-5.78); RDW 12.5 % (11.8-14.1); RDW-SD 42.4 fL; WBC 6.68 10^3/uL (4.4-10.8)
[2023-09-22 07:04] LABS: ESR 26 mm/hr (0-20)
[2023-09-22 07:29] LABS: ALT 44 U/L (16-63); AST 23 U/L (15-37); Albumin 2.9 g/dL (3.4-5.0); Alkaline Phosphatase 154 U/L (46-116); Anion Gap 5.7 mmol/L (3-11); BUN 18 mg/dL (7-18); Bilirubin, Total 0.4 mg/dL (0.2-1.0); C-Reactive Protein 1.78 mg/dL (<or=0.5); CO2 30.3 mmol/L (21.0-32.0); CREATININE 1.3 mg/dL (0.70-1.30); Calcium 8.9 mg/dL (8.5-10.1); Chloride 100 mmol/L (98-107); Glucose 194 mg/dL (74-106); Potassium 4.3 mmol/L (3.5-5.1); Sodium 136 mmol/L (136-145); Total Protein 7.2 g/dL (6.4-8.2)
[2023-09-22 07:53] VITALS: BP 122/62; PULSE 63; RESP 16; TEMP 35.7; O2SAT 98
[2023-09-22] MEDS: Aspirin E.C. 81 MG TABEC PO (08:05)
[2023-09-22] MEDS: Atorvastatin 40 MG TAB PO (08:05)
[2023-09-22] MEDS: Furosemide 20 MG TAB 40 MG PO (08:05)
[2023-09-22] MEDS: Enoxaparin 40 MG/0.4 ML SYR SC ×2 (08:05→20:13)
[2023-09-22] MEDS: Insulin Aspart 300 UNITS/3 ML PEN SC ×3 (08:07→16:39)
--- NOTE | 2023-09-22 09:24 | PDOC.CMPRO ---
Date of service: 09/22/23 Care Management Progress Note Progress Note Text Progress Note Text: S/O: Fan was sitting up on the bed when meeting with CM. Fan and NATALIE discussed that is back 09/27/23 at which time could assess an IV ABX course of treatment. Fan discussed he and arnulfo Verdin have put money down on an apartment owned by a friend Velvet went to school with, however, have not gotten the keys and or a move in date so have requested the money back and also have not heard back from said friend. Fan reports he and Velvet have a scheduled time to go to the bank Monday and a meeting time to address this housing situation to get their money back so said he must leave by no later than 8:00 Monday. NATALIE relayed this information to the m/s cc as well ad Hospitalist. CM following. A: Fan is a 62 year old male admitted to [facility] 09/20/23 for osteomyelitis right great toe. P:Anticipate Fan will require intermediate card tender IV ABX to treat osteomyelitis of his great right toe. Awaiting podiatry consult, and further guidance to determine discharge planning considerations including optimal treatment course and possible wound care. CM continues to follow. SDOH(Care Management) Screening Will the Patient Participate in the Screening?: Declined to provide
--- NOTE | 2023-09-22 11:17 | W.PM.PROGNOT ---
Date of Service Date of service: 09/22/23 Time of Service: 17:36 Assessment and Plan Assessment and plan (1) Acute osteomyelitis of right ankle or foot: Status: Acute Assessment and plan: continue vancomycin for MRSA in wound , strep pyogenes and zosyn for GNR mixed humera day3 will continue with medical management for now, anticipate 6 weeks podiatry/ortho consult: Podiatry to be in later this wees Further results from wound culture pending to help guide treatment Patient is adamant about leaving on Monday: Considering Daptomycin and ceftriaxone or oral antibiotic if indeterminate GNR needs coverage and treatment for 6 weeks in OPT infusion as patient is homeless at this time : ID consultation in AM CBC in AM (2) Diabetes mellitus: Status: Chronic Assessment and plan: A1C 10.5 - diabetic nutrition consult/diabetic diet with diabetes education today finger sticks [id number] continue basal insulin with increase to 55 units (from 50) at hs, adjust as needed sliding scale ac/hs will need adjustement BMP in AM (3) COPD (chronic obstructive pulmonary disease): Status: Chronic Assessment and plan: no exacerbation (4) Hypertension: Status: Chronic Assessment and plan: On home lisinopril and monitor (5) Hyperlipidemia: Status: Chronic Assessment and plan: On atorvastatin (6) Obstructive sleep apnea: Status: Chronic Assessment and plan: has not had his machine for years, states he threw it out. discussed with Dr Koch Subjective Subjective Patient reports: no new complaints, feels better, tolerating liquids well, tolerating a regular diet, voiding w/o difficulty, flatus and bowel movement; denies diarrhea, blood in stool, nausea, vomiting, shortness of breath or fever Exam Narrative Exam Narrative: Neuro: Alert and oriented x 4 Resp: Normal respiratory pattern, speaks in full sentences, unlabored breathing, clear lung bilaterally Cardio: regular rhythm, S1, S2, positive pulses to all 4 extremities GI: Abdomen is not distended, soft and non tender, bowel sounds are present : Negative Costovertebral angle tenderness Back/spine/Pelvis: No back tenderness, normal alignment Integumentary: Right foot dressing dry clean and intact Extremities: strength 5/5 to bilateral lower and upper extremities Psych: RASS 0, congruent mood and normal affect. Objective Last Vital Signs Temp 35.7 C L 09/22/23 07:53 Pulse 63 03/29/24 07:53 Resp 16 09/22/23 07:53 BP 122/62 09/22/23 07:53 Pulse Ox 98 09/22/23 07:53 Laboratory Results - last 24 hr 09/21/23 09/22/23 21:20 06:48 WBC 6.68 RBC 3.81 L Hgb 12.1 L Hct 35.2 L MCV 92 MCH 31.8 MCHC 34.4 RDW 12.5 Plt Count 213 MPV 10.0 Immature Gran % 0.4 Neutrophils % 57.7 Lymphocytes % 22.3 Monocytes % 8.8 Eosinophils % 9.3 Basophils % 1.5 Nucleated RBC % 0.0 Absolute Neutrophils 3.85 Absolute Lymphocytes 1.49 Absolute Monocytes 0.59 Absolute Eosinophils 0.62 Absolute Basophils 0.10 ESR 26 H Sodium 136 Potassium 4.3 Chloride 100 Carbon Dioxide 30.3 Anion Gap 5.7 BUN 18 Creatinine 1.3 Est GFR (CKD-EPI 2020) 62.50 Glucose 194 H Calcium 8.9 Total Bilirubin 0.4 AST 23 ALT 44 Alkaline Phosphatase 154 H C-Reactive Protein 1.78 H Total Protein 7.2 Albumin 2.9 L Vancomycin Trough 13.1 Time Spent with Patient Time Spent with Patient: >50 minutes Time was spent: preparing to see the patient(eg.review tests), obtaining and/or reviewing separately otained hiistory, ordering medications,tests, procedures, referring, communicating with other health customer care specialist, indepentently interpreting results, counseling the patient and care coordination
[2023-09-22] MEDS: Normal Saline Flush 10 ML SYR IVP (14:03)
[2023-09-22 15:48] LABS: Vancomycin, Trough 17.5 ug/mL (10.0-20.0)
[2023-09-22 15:57] VITALS: BP 108/68; PULSE 67; RESP 16; TEMP 36.6; O2SAT 98
--- NOTE | 2023-09-22 16:17 | CHAPLAIN ---
Fan was sitting up at the edge of the bed when I visited. He told me about his infected toe and the antibiotics he is receiving. He said he will have to continue to come in for outpatient infusions when he is discharged. Right now Fan said he is living in the emergency correction in [facility]. He seems to be aware of supports available to him.
[2023-09-22] MEDS: VANCOMYCIN/WATER (PEG) 1 GM/200 ML BAG IVPB (17:37)
[2023-09-22 19:48] VITALS: BP 115/65; PULSE 60; RESP 17; TEMP 36.5; O2SAT 98
[2023-09-22] MEDS: Lisinopril 5 MG TAB 10 MG PO (20:13)
[2023-09-22] MEDS: Insulin Glargine 300 UNITS/3 ML PEN 55 UNITS SC (20:13)
[2023-09-23] MEDS: Acetaminophen 500 MG TAB 1000 MG PO ×2 (00:09→17:47)
[2023-09-23 03:18] VITALS: BP 123/62; PULSE 58; RESP 18; TEMP 36.1; O2SAT 100
[2023-09-23 05:36] LABS: Abs Immature Grans 0.02 10^3/uL (0.0-0.06); Absolute Eosinophil Count 0.67 10^3/uL (0.0-0.7); Absolute Lymphocyte Count 1.96 10^3/uL (1.2-3.4); Absolute Monocyte Count 0.58 10^3/uL (0.1-0.8); Absolute Neutrophil Count 3.46 10^3/uL (1.2-6.7); Basophils % 1.5; Eosinophils % 9.9; HGB 12.6 g/dL (13.5-17.5); Immature Grans % 0.3; Lymphocytes % 28.9; MCH 31.3 pg (27.0-33.0); MCHC 34.1 % (32.0-36.0); MCV 92 fL (80-95); MPV 9.9 fL (8.0-11.0); Monocytes % 8.5; Neutrophils % 50.9; Platelet Count 212 10^3/uL (130-400); RBC 4.02 10^6/uL (4.36-5.78); RDW 12.4 % (11.8-14.1); RDW-SD 41.3 fL; WBC 6.79 10^3/uL (4.4-10.8)
[2023-09-23 05:57] LABS: Anion Gap 8.9 mmol/L (3-11); BUN 17 mg/dL (7-18); CO2 29.1 mmol/L (21.0-32.0); CREATININE 1.3 mg/dL (0.70-1.30); Calcium 9.3 mg/dL (8.5-10.1); Chloride 101 mmol/L (98-107); Estimated GFR 62.11 (mL/min/1.73m2); Glucose 188 mg/dL (74-106); Potassium 4.2 mmol/L (3.5-5.1); Sodium 139 mmol/L (136-145)
[2023-09-23 05:58] LABS: Magnesium 1.8 mg/dL (1.8-2.4)
[2023-09-23] MEDS: PIPERACILLIN/TAZO 4.5 GM in Normal Saline 100 ML IVPB (06:03)
[2023-09-23 06:04] LABS: Vancomycin, Trough 15.6 ug/mL (10.0-20.0)
[2023-09-23] MEDS: VANCOMYCIN/WATER (PEG) 1 GM/200 ML BAG IVPB (06:40)
[2023-09-23 07:38] VITALS: BP 109/67; PULSE 62; RESP 16; TEMP 35.8; O2SAT 100
[2023-09-23 07:42] VITALS: BP 108/78
[2023-09-23] MEDS: Enoxaparin 40 MG/0.4 ML SYR SC ×2 (07:43→19:29)
[2023-09-23] MEDS: Aspirin E.C. 81 MG TABEC PO (07:43)
[2023-09-23] MEDS: Atorvastatin 40 MG TAB PO (07:43)
[2023-09-23] MEDS: Furosemide 20 MG TAB 40 MG PO (07:44)
[2023-09-23] MEDS: Insulin Aspart 300 UNITS/3 ML PEN SC ×3 (07:44→16:46)
--- NOTE | 2023-09-23 09:32 | W.PM.PROGNOT ---
Date of Service Date of service: 09/23/23 Time of Service: 09:32 Assessment and Plan Assessment and plan (1) Acute osteomyelitis of right ankle or foot: Status: Acute Assessment and plan: continue vancomycin for MRSA in wound , strep pyogenes and zosyn for GNR mixed humera day 4 will continue with medical management for now, anticipate 6 weeks -Blood C&S from 09/15/2023 negative at 120 hours podiatry/ortho consult: Podiatry to be in later this week as an OPT as patient will not stay in the hospital past Monday morning Further results from wound culture pending to help guide treatment Patient is adamant about leaving on Monday: Considered Daptomycin and ceftriaxone or oral antibiotic combination ( trimethoprim-sulfamethoxazole or linezolid & doxycycline) if indeterminate GNR also needs coverage and treatment for 6 weeks in OPT - ID consultation in AM : Dr. Heart: Initially agreable to Zyvox and doxycycline, but d/t better anaerobes GNR coverage in soft tissue infection, augmentin was preferred to doxycycline -OPT consult in podiatry this week CBC in AM (2) Diabetes mellitus: Status: Chronic Assessment and plan: A1C 10.5 - diabetic nutrition consult/diabetic diet with diabetes education today finger stick this AM 178 continue basal insulin at 55 units , adjust as needed sliding scale ac/hs Reintroducing metformin BMP in AM (3) Obesity (BMI 30-39.9): Status: Acute Assessment and plan: As above and crisis intervention counselor to seek weight management through PCP and lifestyle changes when his foot heals. (4) COPD (chronic obstructive pulmonary disease): Status: Chronic Assessment and plan: no exacerbation (5) Hypertension: Status: Chronic Assessment and plan: Continue home lisinopril and monitor (6) Hyperlipidemia: Status: Chronic Assessment and plan: Continue atorvastatin (7) Obstructive sleep apnea: Status: Chronic Assessment and plan: Reported not using CPAP for years discussed with Dr Koch (8) Discharge planning issues: Status: Acute Assessment and plan: F/u by CM -Homelessness: States that will return to the homeless long-term - discharge on oral zyvox, augmentin, and probitics for 6 weeks -mandatory f/u in the week of discharge with Dr. Schilling balance wheel arm burnisher -Patient understood the importance of getting specialty care for osteomyelitis-abscess Subjective Subjective Patient reports: no new complaints, feels better, tolerating liquids well, tolerating a regular diet, voiding w/o difficulty, flatus and bowel movement; denies diarrhea, blood in stool, nausea, vomiting, shortness of breath or fever Exam Narrative Exam Narrative: Neuro: Alert and oriented x 4 Resp: Normal respiratory pattern, speaks in full sentences, unlabored breathing, clear lung bilaterally Cardio: regular rhythm, S1, S2, positive pulses to all 4 extremities GI: Abdomen is not distended, soft and non tender, bowel sounds are present : Negative Costovertebral angle tenderness Back/spine/Pelvis: No back tenderness, normal alignment Integumentary: right foot dressing DCI over left great toe wound/ulcer Extremities: strength 5/5 to bilateral lower and upper extremities Psych: RASS 0, congruent mood and normal affect. Objective Last Vital Signs Temp 35.8 C L 09/23/23 07:38 Pulse 62 09/23/23 07:38 Resp 16 09/23/23 07:38 BP 108/78 09/23/23 07:42 Pulse Ox 100 09/23/23 07:38 Laboratory Results - last 24 hr 09/22/23 09/23/23 15:19 05:00 WBC 6.79 RBC 4.02 L Hgb 12.6 L Hct 37.0 L MCV 92 MCH 31.3 MCHC 34.1 RDW 12.4 Plt Count 212 MPV 9.9 Immature Gran % 0.3 Neutrophils % 50.9 Lymphocytes % 28.9 Monocytes % 8.5 Eosinophils % 9.9 Basophils % 1.5 Nucleated RBC % 0.0 Absolute Neutrophils 3.46 Absolute Lymphocytes 1.96 Absolute Monocytes 0.58 Absolute Eosinophils 0.67 Absolute Basophils 0.10 Sodium 139 Potassium 4.2 Chloride 101 Carbon Dioxide 29.1 Anion Gap 8.9 BUN 17 Creatinine 1.3 Est GFR (CKD-EPI 2020) 62.11 Glucose 188 H Calcium 9.3 Magnesium 1.8 Vancomycin Trough 17.5 15.6 Time Spent with Patient Time Spent with Patient: 35-49 minutes Time was spent: preparing to see the patient(eg.review tests), ordering medications,tests, procedures, referring, communicating with other health healthcare network pricing consultant (Discussion with Dr. Koch, primary nurse, case management), indepentently interpreting results, counseling the patient and care coordination
[2023-09-23] MEDS: Lactobacillus Acidophilus CAP 1 CAP PO (11:26)
[2023-09-23] MEDS: Doxycycline Hyclate 100 MG CAP PO (13:15)
[2023-09-23] MEDS: metFORMIN 500 MG TAB 1000 MG PO (13:15)
[2023-09-23 15:39] VITALS: BP 136/67; PULSE 62; RESP 17; TEMP 36.7; O2SAT 97
[2023-09-23] MEDS: LINEZOLID 600 MG/300 ML BAG 300 MG IVPB (17:48)
[2023-09-23] MEDS: Lisinopril 5 MG TAB 10 MG PO (19:30)
[2023-09-23] MEDS: Amoxicillin 875/Clav. 125 TAB PO (19:30)
[2023-09-23] MEDS: Insulin Glargine 300 UNITS/3 ML PEN 55 UNITS SC (19:30)
[2023-09-23 23:01] VITALS: BP 131/69; PULSE 63; RESP 17; TEMP 36; O2SAT 98
[2023-09-24] MEDS: LINEZOLID 600 MG/300 ML BAG 300 MG IVPB (05:50)
[2023-09-24 07:32] LABS: Abs Immature Grans 0.03 10^3/uL (0.0-0.06); Absolute Basophil Count 0.11 10^3/uL (0.0-0.2); Absolute Eosinophil Count 0.66 10^3/uL (0.0-0.7); Absolute Lymphocyte Count 1.57 10^3/uL (1.2-3.4); Absolute Monocyte Count 0.63 10^3/uL (0.1-0.8); Absolute Neutrophil Count 3.65 10^3/uL (1.2-6.7); Basophils % 1.7; Eosinophils % 9.9; HCT 36.7 % (40.0-50.0); HGB 12.4 g/dL (13.5-17.5); Immature Grans % 0.5; Lymphocytes % 23.6; MCH 31.3 pg (27.0-33.0); MCHC 33.8 % (32.0-36.0); MCV 93 fL (80-95); Monocytes % 9.5; Neutrophils % 54.8; Platelet Count 209 10^3/uL (130-400); RBC 3.96 10^6/uL (4.36-5.78); RDW 12.4 % (11.8-14.1); WBC 6.65 10^3/uL (4.4-10.8)
[2023-09-24 07:43] LABS: Anion Gap 6.3 mmol/L (3-11); BUN 16 mg/dL (7-18); CO2 25.7 mmol/L (21.0-32.0); CREATININE 1.1 mg/dL (0.70-1.30); Calcium 9.2 mg/dL (8.5-10.1); Chloride 99 mmol/L (98-107); Glucose 235 mg/dL (74-106); Potassium 4.1 mmol/L (3.5-5.1); Sodium 131 mmol/L (136-145)
[2023-09-24 07:45] VITALS: BP 120/65; PULSE 60; RESP 18; TEMP 35.7; O2SAT 100
[2023-09-24] MEDS: Insulin Aspart 300 UNITS/3 ML PEN SC ×3 (09:15→17:14)
[2023-09-24] MEDS: Aspirin E.C. 81 MG TABEC PO (09:17)
[2023-09-24] MEDS: Amoxicillin 875/Clav. 125 TAB PO ×2 (09:17→21:01)
[2023-09-24] MEDS: metFORMIN 500 MG TAB 1000 MG PO ×2 (09:17→17:14)
[2023-09-24] MEDS: Furosemide 20 MG TAB 40 MG PO (09:17)
[2023-09-24] MEDS: Atorvastatin 40 MG TAB PO (09:17)
[2023-09-24] MEDS: Enoxaparin 40 MG/0.4 ML SYR SC ×2 (09:17→21:00)
[2023-09-24] MEDS: Lactobacillus Acidophilus CAP 1 CAP PO (09:18)
--- NOTE | 2023-09-24 10:27 | W.PM.PROGNOT ---
Date of Service Date of service: 09/24/23 Time of Service: 10:27 Assessment and Plan Assessment and plan (1) Acute osteomyelitis of right ankle or foot: Status: Acute Assessment and plan: Continue with MRSA, Strep pyogenes, and GNR mixed humera: continue Linezolid and Augmentin Will continue with medical management for now with podiatry consult this week, anticipate 6 weeks of oral antibiotics -Blood C&S from 09/15/2023 negative at 120 hours podiatry/ortho consult: Podiatry to be in later this week on 09/28: -Podiatry OPT as patient will not stay in the hospital past Monday morning Further results from wound culture pending to help guide treatment Patient is adamant about leaving on Monday: On Zyvox and Augmentin - ID consultation in AM : Dr. Heart: Initially agreable to Zyvox and doxycycline, but d/t better anaerobes GNR coverage in soft tissue infection, augmentin was preferred to doxycycline -ID also Insistent on the necessity to have a I&D of the abscess with culture as the result we have are from the superficial wound -OPT consult in podiatry this week CBC in AM (2) Diabetes mellitus: Status: Chronic Assessment and plan: A1C 10.5 - diabetic nutrition consult/diabetic diet with diabetes education today finger stick this AM 178 Continue basal insulin at 60 from 55 units sliding scale ac/hs Continue metformin BMP in AM (3) Obesity (BMI 30-39.9): Status: Acute Assessment and plan: As above and cemetery counselor to seek weight management through PCP and lifestyle changes when his foot heals. (4) COPD (chronic obstructive pulmonary disease): Status: Chronic Assessment and plan: Stable, no exacerbation (5) Hypertension: Status: Chronic Assessment and plan: Continue home medicines lisinopril and monitor (6) Hyperlipidemia: Status: Chronic Assessment and plan: Continue home dose of atorvastatin (7) Obstructive sleep apnea: Status: Chronic Assessment and plan: Reported not using CPAP for years (8) Discharge planning issues: Status: Acute Assessment and plan: F/u by CM -Homelessness: States that will return to the homeless intermediate - Discharge on oral zyvox, augmentin, and probitics for 6 weeks; cost verify but CM, no copay -Mandatory f/u in the week of discharge with Dr. Schilling enrollment consultant -Patient understood the importance of getting specialty care for osteomyelitis-abscess Discussed with Dr Koch Subjective Subjective Patient reports: no new complaints, feels better, tolerating liquids well, tolerating a regular diet, flatus, bowel movement and other (Wants to leave at 07:30 on Monday morning); denies diarrhea, nausea, vomiting, shortness of breath or fever Exam Narrative Exam Narrative: Neuro: Alert and oriented x 4 Resp: clear lung bilaterally Cardio: regular rhythm, S1, S2, positive radial and pedal pulses GI: Abdomen is not distended, soft and non tender, bowel sounds are present : Negative Costovertebral angle tenderness Back/spine/Pelvis: No back tenderness, normal alignment Integumentary: right foot dressing DCI over left great toe wound/ulcer, decreased swelling Extremities: strength 5/5 to bilateral lower and upper extremities Psych: RASS 0, congruent mood and normal affect. Objective Last Vital Signs Temp 35.7 C L 09/24/23 07:45 Pulse 60 09/24/23 07:45 Resp 18 09/24/23 07:45 BP 120/65 09/24/23 07:45 Pulse Ox 100 09/24/23 07:45 Laboratory Results - last 24 hr 09/24/23 09/24/23 06:10 06:13 WBC 6.65 RBC 3.96 L Hgb 12.4 L Hct 36.7 L MCV 93 MCH 31.3 MCHC 33.8 RDW 12.4 Plt Count 209 MPV 10.0 Immature Gran % 0.5 Neutrophils % 54.8 Lymphocytes % 23.6 Monocytes % 9.5 Eosinophils % 9.9 Basophils % 1.7 Nucleated RBC % 0.0 Absolute Neutrophils 3.65 Absolute Lymphocytes 1.57 Absolute Monocytes 0.63 Absolute Eosinophils 0.66 Absolute Basophils 0.11 Sodium 131 L Potassium 4.1 Chloride 99 Carbon Dioxide 25.7 Anion Gap 6.3 BUN 16 Creatinine 1.1 Est GFR (CKD-EPI 2020) 75.90 Glucose 235 H Calcium 9.2 Time Spent with Patient Time Spent with Patient: >50 minutes Time was spent: preparing to see the patient(eg.review tests), obtaining and/or reviewing separately otained hiistory, ordering medications,tests, procedures, referring, communicating with other health resident care technician, indepentently interpreting results, counseling the patient and care coordination
[2023-09-24 15:37] VITALS: BP 95/57; PULSE 73; RESP 19; TEMP 36.5; O2SAT 99
--- NOTE | 2023-09-24 16:23 | WOUNDCONS ---
Date of service: 09/24/23 Time of Service: 16:23 Wound Initial Evaluation Narrative Narrative: Order entered to evaluate the right great toe for recommendations for home dressings. Entered pt room and identified myself. Pt refuses to have the dressing removed for evaluation as the dressing was already changed today. Pt states he is going home tomorrow. Advised that I will not be able to return prior to his discharge. Pt adamant that he does not want the dressing taken down for evaluation.
--- NOTE | 2023-09-24 16:31 | DSE_ITS ---
Date of service: 09/24/23 Time of Service: 18:30 DS: Diagnosis Discharge Diagnosis (1) Acute osteomyelitis of right ankle or foot: Status: Acute (2) Diabetes mellitus: Status: Chronic (3) Obesity (BMI 30-39.9): Status: Acute (4) COPD (chronic obstructive pulmonary disease): Status: Chronic (5) Hypertension: Status: Chronic (6) Hyperlipidemia: Status: Chronic (7) Obstructive sleep apnea: Status: Chronic (8) Discharge planning issues: Status: Acute Discharge Plan Disposition Patient Disposition: Home Condition: Serious Discharge Details Reason For Visit: Osteomyelitis Right Great Toe Admit Date/Time: 09/20/23 14:39 Admit Provider: Vince Koch Attending Provider: Vince Koch Primary Care Provider: Jamilah Harman [facility] Course Hospital Course: This is 63 years old male patient with a past medical history of insulin-dependent diabetes mellitus, obstructive sleep apnea, chronic obstructive pulmonary disease, hypertension, hyperlipidemia presented to the ED at [facility] on 09/19/2023 for evaluation of lightheadedness and dizziness concerning for multiple etiologies. At the time the patient was normothermic and had no tachycardia but his QT C from the EKG revealed QTc prolongation which was not apparent any longer on the repeat ECG. The patient had a recent episode of sinusitis which was treated with amoxicillin and no recent history of taking fluoroquinolones. The patient was hemodynamically stable in the ED.The patient was unable to ambulate as required the assistance of staff and a walker, the patient was seen in the ED by physical therapy. Later on reassessment the ED pr ovider did notice pain to the right foot and suspected diabetic foot ulcer with surrou. The patient reported also been present on the foot for several weeks. Imaging were remarkable for right foot x-ray showing soft tissue swelling, vascular calcifications without bony erosion, but MRI revealed a small amount of osteomyelitis to the distal aspect of the great toe proximal phalanx with surrounding fluid as well as probable small abscess more proximally.The hospitalist service was contacted and the patient was admitted to the medical surgical floor for IV antibiotic treatment. In the emergency room the patient was started on piperacillin/tazobactam. As podiatry was out of the office at the time, orthopedic services were consulted and recommended further care by podiatry while concurring with treatment with IV antibiotics, did not see the need for any urgent surgery at the time. Once on the floor, the patient was started on vancomycin in addition to Zosyn initiated in the ED. Wound culture was completed but blood cultures were drawn on previous admission on 09/15/2023 showed no bacteremia. Wound cultures resulted in methicillin-resistant Staphylococcus aureus, Streptococcus pyogenous lower extremity, and gram-negative rods humera. The patient responded to treatment but declined staying after Monday versus in the hospital while awaiting podiatry. Infectious disease at [facility] were consulted regarding the best oral course of treatment and agreed with transitioning from vancomycin to linezolid, but favored Augmentin to doxycycline for soft tissue infection since the culture was superficial and not from the abscess. The patient will be discharged home on oral linezolid and Augmentin for over 6-week course of treatment. Additionally the patient will receive Bio- K Plus for the duration of treatment. Patient verbalized understanding that the infection would not heal if podiatry was not consulted since the abscess needed to be drained and agrees to present to the podiatry office later this week. During the stay the patient other chronic medical conditions were treated as per his home medicine regimen. Lantus insulin was adjusted to 60 units subcutaneous daily. Nursing thought the patient to dress his foot ulcer with Xeroform, dry gauze and tape after washing with wound cleanser as the patient declined the wound consultation that was ordered for him. The patient will need to follow-up with his primary care provider within 7 days of discharge. The patient is living at the nursing home at this time. During the stay the patient was able to ambulate in the room without walker or assistance. Discussed with Dr. Koch Home Meds and New Rx's Prescriptions: New linezolid [Zyvox] 600 mg tablet 600 mg PO BID Qty: 74 0RF amoxicillin-pot clavulanate 875-125 mg tablet 1 tab PO BID Qty: 74 0RF Bio-K plus 50 billion cell capsule,delayed release(DR/EC) 1 cap PO DAILY Qty: 37 0RF Continued furosemide 40 mg tablet 40 mg PO DAILY atorvastatin [Lipitor] 40 mg tablet 40 mg PO DAILY hydrocortisone 2.5 % cream 1 applic topical BID PRN aspirin [Lo-Dose Aspirin] 81 MG tablet,delayed release (DR/EC) 81 mg PO DAILY insulin aspart U-100 [Novolog PenFill U-100 Insulin] 100 UNIT/ML cartridge 1 sliding scale dose subcut DIRECTED Patient Comments: 07/26/18 sliding scale (DME) Dexcom G7 Sensor Device MISCELLANEOUS Patient Comments: CHANGE SENSOR EVERY 10 DAYS Trulicity 4.5 mg/0.5 mL pen injector 4.5 mg SUBCUT .WEEKLY Patient Comments: INJECT 4.5 MG UNDER THE SKIN ONCE WEEKLY lisinopril 20 mg tablet 20 mg PO DAILY Patient Comments: TAKE ONE TABLET BY MOUTH DAILY metformin 1,000 mg tablet 1,000 mg PO BID Patient Comments: TAKE ONE TABLET BY MOUTH TWICE A DAY Changed insulin glargine [Lantus Solostar U-100 Insulin] 100 unit/mL (3 mL) insulin pen 60 unit SUBCUT QPM Qty: 0 0RF Patient Comments: INJECT 44 UNITS SUBCUTANEOUSLY EVERY NIGHT Discontinued amoxicillin 500 mg capsule 500 mg PO TID Qty: 30 0RF Discharge Instructions Referrals: Jamilah Harman MD [Primary Care Provider] - (F/u within a week from discharge please) Cyndy Schilling DPM [[facility] STAFF PHYSICIAN] - (F/u for within a week for osteomyelitis , Thursday 09/28 would be great if we could get him in, please.) Activity:: Activity as Tolerated Equipment/Supplies:: No Equipment Needed Diet:: diabetic Discharge Orders Discharge Orders: Discharge Order (Routine); Ordered 09/25/23 Ordered By: Katerine Wilson DS: Summary Time Spent with Patient providing and/or coordinating discharge services: Greater than 30 minutes Status at Discharge Functional status at discharge: independent ambulation Overall status at discharge: patient is progressing back to baseline Mental Status: mental status grossly normal Speech and Movement: speech and movement normal Mood: congruent mood Affect: normal affect Quality:SDOH Health Related Social Needs: No Data to Display Exam Psych Mental Status: mental status grossly normal Speech and Movement: speech and movement normal Mood: congruent mood Affect: normal affect DS: Data Vitals/I&O Vitals and I&O: Vital Signs Temperature 36.5 C 09/24/23 15:37 Temperature Source Tympanic 09/24/23 15:37 Pulse 73 09/24/23 15:37 Pulse Rhythm Regular 09/24/23 15:37 Pulse 70 09/20/23 03:07 Respiratory Rate 19 09/24/23 15:37 Respiratory Effort Normal 09/24/23 15:37 Respiratory Depth Normal 09/24/23 15:37 Respiratory Pattern Normal 09/24/23 15:37 Blood Pressure 95/57 L 09/24/23 15:37 Blood Pressure Mean 86 09/20/23 03:08 Blood Pressure Position Sitting 09/19/23 18:19 Pulse Oximetry 99 09/24/23 15:37 Oxygen Delivery Method Room Air 09/24/23 15:37 Oxygen Flow Rate 0 09/24/23 15:37 Pain Level 0 09/24/23 15:37 Comment Pt resting on stretcher NAD. Pt sleeping in the ER pending PT eval in AM 09/19/23 22:00 Comment 1L 09/20/23 03:08 Intake & Output 09/23/23 09/24/23 09/24/23 23:59 11:59 23:59 Intake Total 320 / 640 300 / 300 Output Total 325 / 325 Balance 320 / 240 -25 / -25 Intake: IV 320 / 520 300 / 300 Output: Urine 325 / 325 Other: Urine Color Yellow Yellow Urine Appearance Clear Clear Clear Voiding Methods Toilet Toilet Toilet Urinal Data Completed and Pending Labs on day of discharge: Labs from last 24 hours 09/24/23 09/24/23 06:13 06:10 WBC 6.65 RBC 3.96 L Hgb 12.4 L Hct 36.7 L MCV 93 MCH 31.3 MCHC 33.8 RDW 12.4 Plt Count 209 MPV 10.0 Immature Gran % 0.5 Neutrophils % 54.8 Lymphocytes % 23.6 Monocytes % 9.5 Eosinophils % 9.9 Basophils % 1.7 Nucleated RBC % 0.0 Absolute Neutrophils 3.65 Absolute Lymphocytes 1.57 Absolute Monocytes 0.63 Absolute Eosinophils 0.66 Absolute Basophils 0.11 Sodium 131 L Potassium 4.1 Chloride 99 Carbon Dioxide 25.7 Anion Gap 6.3 BUN 16 Creatinine 1.1 Est GFR (CKD-EPI 2020) 75.90 Glucose 235 H Calcium 9.2 PFSH All Active Problems Obesity (BMI 30-39.9) (Acute) Discharge planning issues (Acute) Osteomyelitis of great toe of right foot (Acute) COPD (chronic obstructive pulmonary disease) (Chronic) Acute osteomyelitis of right ankle or foot (Acute) Cellulitis of foot, right (Acute) Diabetic foot ulcer (Acute) Hx of falling (Acute) Head injury (Acute) Elevated serum creatinine (Acute) Weakness (Acute) Altered behavior (Acute) Sinusitis (Acute) 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 Low back pain (Chronic) Tobacco abuse (Chronic) Stage 2 moderate COPD by GOLD classification (Chronic) Obstructive sleep apnea (Chronic) Hyperlipidemia (Chronic) Hypertension (Chronic) Diabetes with retinopathy (Chronic) Diabetes mellitus (Chronic) Tendonitis of left rotator cuff (Acute) Subacromial injection: 11/05/18 Status post cataract extraction and insertion of intraocular lens of left eye (Chronic 08/13/18) Status post cataract extraction and insertion of intraocular lens of right eye (Chronic 07/30/18) Medical History Obesity Rotator cuff syndrome of right shoulder Learning disability Leg edema COPD (chronic obstructive pulmonary disease) Diabetic retinopathy Chronic eczematoid otitis externa of right ear Impacted cerumen, right ear Eructation Carpal tunnel syndrome, bilateral Cortical cataract of left eye Nuclear sclerotic cataract of left eye Cortical cataract of right eye Nuclear sclerotic cataract of right eye Family History Father Diabetes Social History Smoking/Tobacco Use Status: Current every day Tobacco Type: cigarettes Smoking risk assessment performed?: Yes Alcohol Intake: former Drug use: Rarely Substance use type: marijuana Housing: homeless Do you feel safe at home: Yes Do you feel safe in your relationship?: Yes Time Spent with Patient Time Spent with Patient: >85 minutes Time was spent: preparing to see the patient(eg.review tests), obtaining and/or reviewing separately otained hiistory, ordering medications,tests, procedures, referring, communicating with other health healthcare corporate account director, indepentently interpreting results, counseling the patient and care coordination
[2023-09-24] MEDS: Linezolid 600 MG TAB PO (18:09)
[2023-09-24] MEDS: Insulin Glargine 300 UNITS/3 ML PEN 60 UNITS SC (21:00)
[2023-09-24] MEDS: Lisinopril 5 MG TAB 10 MG PO (21:01)
[2023-09-24 23:12] VITALS: BP 116/54; PULSE 62; RESP 19; TEMP 36; O2SAT 98
[2023-09-25 07:02] LABS: Abs Immature Grans 0.04 10^3/uL (0.0-0.06); Absolute Eosinophil Count 0.84 10^3/uL (0.0-0.7); Absolute Lymphocyte Count 1.92 10^3/uL (1.2-3.4); Absolute Monocyte Count 0.63 10^3/uL (0.1-0.8); Basophils % 1.2; Eosinophils % 10.3; HCT 37.8 % (40.0-50.0); HGB 12.9 g/dL (13.5-17.5); Immature Grans % 0.5; Lymphocytes % 23.6; MCH 31.6 pg (27.0-33.0); MCHC 34.1 % (32.0-36.0); MCV 93 fL (80-95); MPV 9.8 fL (8.0-11.0); Monocytes % 7.7; Neutrophils % 56.7; Platelet Count 268 10^3/uL (130-400); RBC 4.08 10^6/uL (4.36-5.78); RDW 12.4 % (11.8-14.1); RDW-SD 41.7 fL; WBC 8.13 10^3/uL (4.4-10.8)
[2023-09-25 07:22] LABS: Anion Gap 9.4 mmol/L (3-11); BUN 20 mg/dL (7-18); CO2 28.6 mmol/L (21.0-32.0); CREATININE 1.3 mg/dL (0.70-1.30); Calcium 9.6 mg/dL (8.5-10.1); Chloride 98 mmol/L (98-107); Estimated GFR 62.11 (mL/min/1.73m2); Glucose 169 mg/dL (74-106); Potassium 4.2 mmol/L (3.5-5.1); Sodium 136 mmol/L (136-145)
[2023-09-25] MEDS: metFORMIN 500 MG TAB 1000 MG PO (07:40)
[2023-09-25] MEDS: Furosemide 20 MG TAB 40 MG PO (07:41)
[2023-09-25] MEDS: Aspirin E.C. 81 MG TABEC PO (07:41)
[2023-09-25] MEDS: Amoxicillin 875/Clav. 125 TAB PO (07:41)
[2023-09-25] MEDS: Atorvastatin 40 MG TAB PO (07:41)
[2023-09-25] MEDS: Linezolid 600 MG TAB PO (07:41)
[2023-09-25] MEDS: Lactobacillus Acidophilus CAP 1 CAP PO (07:41)
[2023-09-25] MEDS: Enoxaparin 40 MG/0.4 ML SYR SC (07:42)
--- NOTE | 2023-09-25 08:48 | PDOC.CMDIS ---
Date of service: 09/25/23 LACE Index Scoring Tool Questions: Length of Stay (in days): 4 - 6 Was the patient admitted via the E.D.?: Yes Comorbidities: Diabetes w/o Complication E.D. Visits: 3 Answers: Total Score: 11 Risk of Readmission: High Risk Care Management Discharge Plan Reason for Hospitalization: Osteomyelitis right great toe Discharge Plan: Fan will discharge home and transport via private vehicle by family. He will follow up with his PCP and primary care instructions as prescribed. Patient/Family Education Needs: Review discharge plan instructions as prescribed. Discussion of plan of care including Ask Me Three [facility] Health Related Social Needs: No Data to Display
== END 2023-09-25 07:56 | disposition home or self-care (01) | DRG 638 ==
LOC: ER 09-20 14:31 → MS 09-20 15:56
PROVIDERS: Emergency Medicine; Nurse Practitioner Acute Care; Admitting Provider Internal Medicine; Emergency Provider Emergency Medicine; PCP Family Medicine; Visit Provider Internal Medicine
DX: E11.69 Type 2 diabetes mellitus with other specified complication (principal); L02.611 Cutaneous abscess of right foot; M86.171 Other acute osteomyelitis, right ankle and foot; L03.115 Cellulitis of right lower limb; Z59.01 Sheltered homelessness; J44.9 Chronic obstructive pulmonary disease, unspecified; I10 Essential (primary) hypertension; E78.5 Hyperlipidemia, unspecified; G47.33 Obstructive sleep apnea (adult) (pediatric); Z68.38 Body mass index [BMI] 38.0-38.9, adult; E11.65 Type 2 diabetes mellitus with hyperglycemia; E66.01 Morbid (severe) obesity due to excess calories; E11.621 Type 2 diabetes mellitus with foot ulcer; L97.511 Non-pressure chronic ulcer of other part of right foot limited to breakdown of skin; E11.319 Type 2 diabetes mellitus with unspecified diabetic retinopathy without macular edema; R53.1 Weakness; F17.210 Nicotine dependence, cigarettes, uncomplicated; M54.50 Low back pain, unspecified; B95.62 Methicillin resistant Staphylococcus aureus infection as the cause of diseases classified elsewhere; B95.0 Streptococcus, group A, as the cause of diseases classified elsewhere; Z79.4 Long term (current) use of insulin
CPT/HCPCS: 00123; 36415; 36416; 80048; 80053; 82550; 82962; 85652; 87077; 93005; 96365; 96375; 99285; J1650; 71045; 72170; 73630; 73720; 80202; 83735; 84484; 85025; 86140; 87070; 87186; 87205; 93010; 99222; 99232; 99233; 99238; J1815; J2020; J2543; J3372

== ENCOUNTER → 2023-12-13 11:38 | Outpatient (CLI) | payer MEDICAID, SELFPAY ==
--- NOTE | 2023-12-13 10:40 | DI.RAD_ITS ---
Exam(s) XR FOOT RT COMPLETE EXAM: XR FOOT RT COMPLETE CLINICAL HISTORY: OM? L97.512 ULCER M86.9 OSTEOMYELITIS. TECHNIQUE: 2D digital imaging was performed. Three views. COMPARISON: CR,XR XR FOOT RT COMPLETE from 09/19/2023 MR MR LOWER EXTREMITY RT WO/W from 09/20/2023 FINDINGS: BONES: No acute fracture is present. No bony destructive lesion is seen. JOINTS: No dislocation present. SOFT TISSUE: On abandon is noted at the great toe. There is a soft tissue defect seen dorsal mediall y. There is an erosion at the medial corner of the proximal phalanx consistent with osteomyelitis. Vascular calcifications. Calcification in distal Achilles tendon. IMPRESSION: Erosion at the medial, distal corner of the proximal phalanx of the great toe with adjacent soft tiss ue wound. The findings are consistent with osteomyelitis. DATA REPOSITORY: RADIATION DOSE DELIVERED:
== END ==
PROVIDERS: PCP Family Medicine; Visit Provider Podiatrist
DX: L97.512 Non-pressure chronic ulcer of other part of right foot with fat layer exposed (principal)
CPT/HCPCS: 73630

== ENCOUNTER 2023-12-25 16:16 | Outpatient (REF) | payer MEDICAID, SELFPAY ==
[2023-12-25 19:13] LABS: BUN 28 mg/dL (7-18); CREATININE 1.2 mg/dL (0.70-1.30); Calcium 9.2 mg/dL (8.5-10.1); Chloride 101 mmol/L (98-107); Estimated GFR 68.38 (mL/min/1.73m2); Glucose 114 mg/dL (74-106); Potassium 4.2 mmol/L (3.5-5.1); Sodium 137 mmol/L (136-145)
== END 2023-12-25 16:17 | disposition home or self-care (01) ==
LOC: NCHCN 16:16
PROVIDERS: PCP Family Medicine; Visit Provider Family Medicine
DX: R60.0 Localized edema (principal)
CPT/HCPCS: 80048

== ENCOUNTER 2024-01-08 15:11 | Outpatient (REF) | payer MEDICAID, SELFPAY ==
--- OUTSIDE RECORDS SUMMARY | 2024-01-08 15:13 | XMS_ITS | Encounter Summary ---
Author Organization [facility] Address [address] [place] [address] Care Team Providers Care Pulmonologist Intensivist Name Role Phone Jamilah Harman MD Primary Care Provider [phone] Encounter Details Date Type Department Care Team (Late st Contact Info) Description 08/12/2021 Lab Requisition [facility] Pathology & Laboratory Medicine - [facility] [address] [place] [address] Outr Resulting Lab, Provider Social History Tobacco Use Types Packs/Day Years Used Date Smoking Tobacco: Never Assessed Sex and Gender Information Value Date Recorded Sex Assigned at Not on file Gender Identity Not on file Sexual Orientation Not on file documented as of this encounter Plan of Treatment Not on file documented as of this encounter Procedures Procedure Name Priority Date/Time Associated Diagnosis Comments HIV 1/2 ANTIGEN AND ANTIBODY, 4TH GENERATION Routine 08/12/2021 11:32 EST documented in this encounter Results * HIV 1/2 ANTIGEN AND ANTIBODY, 4TH GENERATION (08/12/2021 11:32 EST) HIV 1 and 2 Antibody/p24 Antigen, 4th Generation Negative Negative 08/13/2021 10:07 EST [facility] Comment:If acute HIV-1 infec tion is suspected in a high risk patient, submit plasma specimen for HIV-1 RNA quantitation test. Blood VENOUS BLOOD / Unknown 08/12/2021 11:32 EST 08/12/2021 21:11 EST Narrative [facility] - 08/13/2021 10:07 EST Fourth Generation assay performed on the Siemens [email or web address] XPT. Provider Outr Resulting Lab IMMUNOLOGY A ND SEROLOGY ORDERABLES [facility] [address] [place] [address] documented in this encounter Visit Diagnoses Not on filedocumented in this encounter Care Teams Pulmonologist Intensivist Relationship Specialty Start Date End Date Jamilah Harman MD [address] [place] [phone] PCP - General 10/05/18 documented as of this encounter
--- OUTSIDE RECORDS SUMMARY | 2024-01-08 15:13 | XMS_ITS | Encounter Summary ---
Author Organization [facility] Address [address] [place] [address] Care Team Providers Care Electrical And Radio Mock Up Mechanic Name Role Phone Jamilah Harman MD Primary Care Provider [phone] Reason for Visit * Reason Onset Date Comments Appointment Related 12/20/2018 Encounter Details Date Type Department Care Team (Late st Contact Info) Description 12/20/2018 Telephone [facility] Ophthalmology - [address] [id number] Dimas Honeycutt MD [address] [facility], [address] [place] [address] Appointment Related Social History Tobacco Use Types Packs/Day Years Used Date Smoking Tobacco: Never Assessed Sex and Gender Information Value Date Recorded Sex Assigned at Not on file Gender Identity Not on file Sexual Orientation Not on file documented as of this encounter Miscellaneous Notes * Telephone Encounter - Jerilyn Leyva - 12/20/2018 1652 EDT Fan called to cancel his apt for 12/21/[address] Honeycutt. We spoke of the importance of keeping this apt, and offered other times on the same day. He is not able to get transportation. I suggested checking in with family, friends and other support people in his life to see if he could make the re/brock apt for 12/[address] Honeycutt. I discussed that it is going against medical advice to delay, he understood and would do his best to get a ride for the December 26 apt documented in this encounter Plan of Treatment Not on file documented as of this encounter Visit Diagnoses Not on filedocumented in this encounter Care Teams Electrical And Radio Mock Up Mechanic Relationship Specialty Start Date End Date Jamilah Harman MD [address] [place] [phone] PCP - General 10/05/18 documented as of this encounter
--- OUTSIDE RECORDS SUMMARY | 2024-01-08 15:13 | XMS_ITS | Referral Summary ---
Author Organization [facility] Address [address] [place] [address] Care Team Providers Care Scale Shooter Name Role Phone Jamilah Harman MD Primary Care Provider [phone] Social History Tobacco Use Types Packs/Day Years Used Date Smoking Tobacco: Never Assessed Sex and Gender Information Value Date Recorded Sex Assigned at Not on file Gender Identity Not on file Sexual Orientation Not on file Plan of Treatment Not on file Care Teams Scale Shooter Relationship Specialty Start Date End Date Jamilah Harman MD [address] [place] [phone] PCP - General 10/05/18
--- OUTSIDE RECORDS SUMMARY | 2024-01-08 15:13 | XMS_ITS | Clinical Summary ---
Author Organization [facility] Address [address] [place] [address] Care Team Providers Care Speech And Hearing Clinic Director Name Role Phone Jamilah Harman MD Primary Care Provider [phone] Social History Tobacco Use Types Packs/Day Years Used Date Smoking Tobacco: Never Assessed Sex and Gender Information Value Date Recorded Sex Assigned at Not on file Gender Identity Not on file Sexual Orientation Not on file Plan of Treatment Health Maintenance Due Date Last Done Comments Hepatitis C Screen 1961 RSV Immunization ( o r 60+ Years) (1 - 1-dose 60+ series) 2021 COVID-19 Vaccine (2022-24 season) 2023 Care Teams Speech And Hearing Clinic Director Relationship Specialty Start Date End Date Jamilah Harman MD [address] [place] [phone] PCP - General 10/05/18
--- OUTSIDE RECORDS SUMMARY | 2024-01-08 15:13 | XMS_ITS | Encounter Summary ---
Author Organization [facility] Address [address] [place] [address] Care Team Providers Care Office Agent Name Role Phone Jamilah Harman MD Primary Care Provider [phone] Reason for Visit * Reason Onset Date Comments Appointment Related 11/02/2018 Encounter Details Date Type Department Care Team (Late st Contact Info) Description 11/02/[address] [facility] Ophthalmology - [address] [phone] Lei Perez MD [address] [facility], [address] [place] [phone] Appointment Related Social History Tobacco Use Types Packs/Day Years Used Date Smoking Tobacco: Never Assessed Sex and Gender Information Value Date Recorded Sex Assigned at Not on file Gender Identity Not on file Sexual Orientation Not on file documented as of this encounter Miscellaneous Notes * Telephone Encounter - Debbie Banuelos - 11/02/2018 1356 EDT done * Telephone Encounter - Karen Harris - 11/02/2018 0702 EDT PAS Message: Patient needs to cancel his appointment for today 11/02/[address] Perez. Please call back to set up another time. documented in this encounter Plan of Treatment Not on file documented as of this encounter Visit Diagnoses Not on filedocumented in this encounter Care Teams Office Agent Relationship Specialty Start Date End Date Jamilah Harman MD [address] [place] [phone] PCP - General 10/05/18 documented as of this encounter
[2024-01-08 15:25] LABS: Anion Gap 9.1 mmol/L (3-11); BUN 37 mg/dL (7-18); CO2 28.9 mmol/L (21.0-32.0); CREATININE 1.5 mg/dL (0.70-1.30); Calcium 9.5 mg/dL (8.5-10.1); Chloride 99 mmol/L (98-107); Estimated GFR 52.31 (mL/min/1.73m2); Glucose 232 mg/dL (74-106); Potassium 4.9 mmol/L (3.5-5.1); Sodium 137 mmol/L (136-145)
== END 2024-01-08 15:12 | disposition home or self-care (01) ==
LOC: NCHCN 15:11
PROVIDERS: PCP Family Medicine; Visit Provider Family Medicine
DX: R60.0 Localized edema (principal)
CPT/HCPCS: 80048

== ENCOUNTER 2024-03-01 15:14 | Outpatient (REF) | payer MEDICAID, SELFPAY ==
--- OUTSIDE RECORDS SUMMARY | 2024-03-01 15:17 | XMS_ITS | Encounter Summary ---
Author Organization [facility] [place] [address] Care Team Providers Care Solar Energy System Installer Name Role Phone Jamilah Harman MD Primary Care Provider [phone] Encounter Details Date Type Department Care Team (Late st Contact Info) Description 09/20/2023 Ancillary Procedure [place] [address] Jamilah Harman MD [address] [place] [address] Social History Tobacco Use Types Packs/Day Years Used Date Smoking Tobacco: Never Assessed Sex and Gender Information Value Date Recorded Sex Assigned at Not on file Gender Identity Not on file Sexual Orientation Not on file documented as of this encounter Plan of Treatment Not on file documented as of this encounter Procedures Procedure Name Priority Date/Time Associated Diagnosis Comments FILM LIBRARY STORAGE ONLY MR LOWER EXTREMITY Routine 09/20/2023 12:00 AM EDT documented in this encounter Results * Film Library- Storage Only MR Lower Extremity (09/20/2023 12:00 AM EDT) Narrative [facility] - 09/23/2023 11:01 AM EDT This exam is auto-finalizing. It's purpose is for storage only. Jamilah Harman MD IMG FILM LIBRARY ORD ERABLES [place], [place] documented in this encounter Visit Diagnoses Not on filedocumented in this encounter Care Teams Solar Energy System Installer Relationship Specialty Start Date End Date Jamilah Harman MD [address] [place] [address] PCP - General Family Medicine 04/27/21 documented as of this encounter
--- OUTSIDE RECORDS SUMMARY | 2024-03-01 15:17 | XMS_ITS | Encounter Summary ---
Author Organization [facility] Address [address] [place] [address] Care Team Providers Care Oil Lease Buyer Name Role Phone Jamilah Harman MD Primary Care Provider [phone] Reason for Visit * Reason Onset Date Comments Appointment Related 12/20/2018 Encounter Details Date Type Department Care Team (Late st Contact Info) Description 12/20/2018 Telephone [facility] Ophthalmology - [address] [phone] Dimas Honeycutt MD [address] [facility], [address] [place] [address] Appointment Related Social History Tobacco [...] on filedocumented in this encounter Care Teams Oil Lease Buyer Relationship Specialty Start Date End Date Jamilah Harman MD [address] [place] [phone] PCP - General 10/05/18 documented as of this encounter
--- OUTSIDE RECORDS SUMMARY | 2024-03-01 15:17 | XMS_ITS | Clinical Summary ---
Author Organization [facility] Address [address] [place] [address] Care Team Providers Care Cattle Driver Name Role Phone Jamilah Harman MD Primary Care Provider [phone] Social History Tobacco Use Types Packs/Day Years [...] COVID-19 Vaccine (2022-24 season) 2023 Care Teams Cattle Driver Relationship Specialty Start Date End Date Jamilah Harman MD [address] [place] [phone] PCP - General 10/05/18
--- OUTSIDE RECORDS SUMMARY | 2024-03-01 15:17 | XMS_ITS | Encounter Summary ---
Author Organization [facility] [place] [address] Care Team Providers Care Erection Shop Supervisor Name Role Phone Jamilah Harman MD Primary Care Provider [phone] Encounter Details Date Type Department Care Team (Late st Contact Info) Description 12/07/2023 Telephone [place] [phone] Mckenna Mendez Social History Tobacco Use Types Packs/Day Years Used Date Smoking Tobacco: Never Assessed Sex and Gender Information Value Date Recorded Sex Assigned at Not on file Gender Identity Not on file Sexual Orientation Not on file documented as of this encounter Miscellaneous Notes * Telephone Encounter - Mckenna Mendez - 12/07/2023 1:39 PM EDT [id number] Called patient to update address and to schedule an appointment. YANDEL-PAD BG 12 07 23 documented in this encounter Plan of Treatment Not on file documented as of this encounter Visit Diagnoses Not on filedocumented in this encounter Care Teams Erection Shop Supervisor Relationship Specialty Start Date End Date Jamilah Harman MD [address] [place] [address] PCP - General Family Medicine 04/27/21 documented as of this encounter
--- OUTSIDE RECORDS SUMMARY | 2024-03-01 15:17 | XMS_ITS | Encounter Summary ---
Author Organization [facility] Address [address] [place] [address] Care Team Providers Care Shirt Maker Name Role Phone Jamilah Harman MD Primary Care Provider [phone] Encounter Details Date Type Department Care Team (Late st Contact Info) Description 08/12/2021 Lab Requisition [facility] Pathology & Laboratory Medicine - [facility] [address] [place] [address] Outr Resulting Lab, Provider Social History Tobacco [...] 4th Generation Negative Negative 08/13/2021 10:07 EST [facility] Comment:If acute HIV-1 infec tion is suspected in a high risk patient, submit plasma specimen for HIV-1 RNA quantitation test. Blood VENOUS BLOOD / Unknown 08/12/2021 11:32 EST 08/12/2021 21:11 EST Narrative [facility] - 08/13/2021 10:07 EST Fourth Generation assay performed on the Siemens [email or web address] XPT. Provider Outr Resulting Lab IMMUNOLOGY A ND SEROLOGY ORDERABLES [facility] [address] [place] [address] documented in this encounter Visit Diagnoses Not on filedocumented in this encounter Care Teams Shirt Maker Relationship Specialty Start Date End Date Jamilah Harman MD [address] [place] [phone] PCP - General 10/05/18 documented as of this encounter
--- OUTSIDE RECORDS SUMMARY | 2024-03-01 15:17 | XMS_ITS | Encounter Summary ---
Author Organization [facility] [place] [address] Care Team Providers Care Occupational Ther Name Role Phone Jamilah Harman MD Primary Care Provider [phone] Reason for Referral * Consultation (AMBAR) - Closed Specialty Diagnoses / Procedures Referred By Fernando t Referred To Contact Vascular Surgery Diagnoses Ulcer of foot, unspecified laterality, unspecified ulcer stage Cyndy Schilling DPM [facility] [address] [place] [address] [facility] Vascular Surg [address] [place] [address] Referral ID Status Reason Start Date Expiration Date V isits Requested Visits Authorized [id number] Closed Consult, Test & Treat 11/02/2023 11/01/2024 1 1 Encounter Details Date Type Department Care Team (Late st Contact Info) Description 11/02/2023 Transcribe Orders eDH Incoming Referrals [phone] Cyndy Schilling DPM [facility] [address] [place], [place] [phone] Ulcer of foot, unspecified laterality, unspecified ulcer stage Social History Tobacco Use Types Packs/Day Years Used Date Smoking Tobacco: Never Assessed Sex and Gender Information Value Date Recorded Sex Assigned at Not on file Gender Identity Not on file Sexual Orientation Not on file documented as of this encounter Plan of Treatment Scheduled Referrals Name Type Priority Associated Diagnoses Orde r Schedule Referral to Vascular Surgery Outpatient Referral Routine Ulcer of foot, unspecified laterality, unspecified ulcer stage Ordered: 11/02/2023 documented as of this encounter Visit Diagnoses Diagnosis Ulcer of foot, unspecified laterality, unspecified ulcer stage documented in this encounter Care Teams Occupational Ther Relationship Specialty Start Date End Date Jamilah Harman MD [address] [facility] [address] [place] [address] PCP - General Family Medicine 04/27/21 documented as of this encounter
--- OUTSIDE RECORDS SUMMARY | 2024-03-01 15:17 | XMS_ITS | Clinical Summary ---
Author Organization [facility] [place] [address] Care Team Providers Care Customer Expert Name Role Phone Jamilah Harman MD Primary Care Provider [phone] Encounters Date Type Department Care Team Description 01/12/2024 Transcribe Orders eDH Incoming Referrals [phone] Jamilah Harman MD Osteomyelitis of great toe of right foot 12/07/2023 Telephone [place] [phone] Mckenna Mendez from Last 3 Months Social History Tobacco Use Types Packs/Day Years Used Date Smoking Tobacco: Never Assessed Sex and Gender Information Value Date Recorded Sex Assigned at Not on file Gender Identity Not on file Sexual Orientation Not on file Plan of Treatment Health Maintenance Due Date Last Done Comments CT Colonography 1961 Colonoscopy 1961 Colorectal Cancer Screening 1961 FIT DNA 1961 FIT 1961 Sigmoidoscopy (10 year) with FIT yearly 1961 Sigmoidoscopy 1961 HIV screen 09/23/1979 Hepatitis C Screening 09/23/1979 Lipid Screening 09/23/1979 Tdap adult 1980 Tetanus vaccine 1980 Zoster vaccine (1 of 2) 09/23/2011 Advance Directive 2016 Covid-19 Vaccine ( season) 2023 Influenza (Flu) vaccine (1 o f 1 - Influenza standard series) 02/25/2024 Procedures Procedure Name Priority Date/Time Associated Diagnosis Comments DIAGNOSTIC RADIOLOGY SCAN 12/13/2023 12:00 AM EDT from Last 3 Months Results * Scan Doc: Diagnostic Radiology (12/13/2023 12:00 AM EDT) Anatomical Region Laterality Modality Other Narrative 12/13/2023 12:00 AM EDT Ordered by an unspecified provider. Scanning Provider MEDIA MGR SCAN EXT O RDR/RSLT from Last 3 Months Care Teams Customer Expert Relationship Specialty Start Date End Date Jamilah Harman MD [facility] [address] [place], [place] [phone] PCP - General Family Medicine 04/27/21
--- OUTSIDE RECORDS SUMMARY | 2024-03-01 15:17 | XMS_ITS | Encounter Summary ---
Author Organization [facility] [place] [address] Care Team Providers Care Form Builder Helper Name Role Phone Jamilah Harman MD Primary Care Provider [phone] Reason for Referral * Consultation (Routine) - Authorized Specialty Diagnoses / Procedures Referred By Contac t Referred To Contact Infectious Diseases Diagnoses Osteomyelitis of great toe of right foot Cynyd Schilling, [facility] [address] [address] [address] [place] [address] [facility] [address] [place] [phone] Referral ID Status Reason Start Date Expiration Date Visits Requested Visits Authorized [id number] Authorized Consult, Test & Treat PCP Updated and/or Approved 12/14/2023 06/14/2024 6 6 Encounter Details Date Type Department Care Team (Latest Contact Info) Description 01/12/2024 Transcribe Orders eDH Incoming Referrals [phone] Jamilah Harman MD [address] [place] [address] [address] [place] [address] Osteomyelitis of great toe of right foot Social History Tobacco Use Types Packs/Day Years Used Date Smoking Tobacco: Never Assessed Sex and Gender Information Value Date Recorded Sex Assigned at Not on file Gender Identity Not on file Sexual Orientation Not on file documented as of this encounter Plan of Treatment Scheduled Referrals Name Type Priority Associated Diagnoses Order Schedule Referral to Infectious Disease and International [facility] Outpatient Referral Routine Osteomyelitis of great toe of right foot Ordered: 01/12/2024 documented as of this encounter Visit Diagnoses Diagnosis Osteomyelitis of great toe of right foot documented in this encounter Care Teams Form Builder Helper Relationship Specialty Start Date End Date Jamilah Harman MD [address] [place] [address] PCP - General Family Medicine 04/27/21 documented as of this encounter
--- OUTSIDE RECORDS SUMMARY | 2024-03-01 15:17 | XMS_ITS | Referral Summary ---
Author Organization [facility] Address [address] [place] [address] Care Team Providers Care Drone Software Development Engineer Name Role Phone Jamilah Harman MD Primary Care Provider [phone] Social History Tobacco Use Types Packs/Day Years Used Date Smoking Tobacco: Never Assessed Sex and Gender Information Value Date Recorded Sex Assigned at Not on file Gender Identity Not on file Sexual Orientation Not on file Plan of Treatment Not on file Care Teams Drone Software Development Engineer Relationship Specialty Start Date End Date Jamilah Harman MD [address] [place] [phone] PCP - General 10/05/18
--- OUTSIDE RECORDS SUMMARY | 2024-03-01 15:17 | XMS_ITS | Encounter Summary ---
Author Organization [facility] Address [address] [place] [address] Care Team Providers Care Product Marketing Coordinator Name Role Phone Jamilah Harman MD Primary Care Provider [phone] Reason for Visit * Reason Onset Date Comments Appointment Related 11/02/2018 Encounter Details Date Type Department Care Team (Late st Contact Info) Description 11/02/2018 Telephone [facility] Ophthalmology - [address] [phone] Lei Perez MD [address] [facility], [address] [place] [phone] Appointment Related Social History Tobacco Use Types [...] on filedocumented in this encounter Care Teams Product Marketing Coordinator Relationship Specialty Start Date End Date Jamilah Harman MD [address] [place] [phone] PCP - General 10/05/18 documented as of this encounter
--- OUTSIDE RECORDS SUMMARY | 2024-03-01 15:17 | XMS_ITS | Encounter Summary ---
[place] [address] Care Team Providers Care Ski Guide Name Role Phone Jamilah Harman MD Primary Care Provider [phone] Reason for Referral * Diagnostic Test (Routine) - Authorized Specialty Diagnoses / Procedures Referred By Contac t Referred To Contact Diagnoses PAD (peripheral artery disease) Procedures YANDEL, legs, multiple levels Tiffany Escalante APRN [facility] [place] [address] [facility] Vascular Lab [address] [address] Referral ID Status Reason Start Date Expiration Date Visits Requested Visits Authorized [id number] Authorized Specialty Service Requested 11/02/2023 11/01/2024 1 1 Encounter Details Date Type Department Care Team (Late st Contact Info) Description 11/02/2023 Orders [place] [phone] Tiffany Escalante APRN [facility] [place] [address] PAD (peripheral artery disease) Social History Tobacco Use Types Packs/Day Years Used Date Smoking Tobacco: Never Assessed Sex and Gender Information Value Date Recorded Sex Assigned at Not on file Gender Identity Not on file Sexual Orientation Not on file documented as of this encounter Plan of Treatment Not on file documented as of this encounter Visit Diagnoses Diagnosis PAD (peripheral artery disease) Peripheral vascular disease, unspecified documented in this encounter Care Teams Ski Guide Relationship Specialty Start Date End Date Jamilah Harman MD [facility] [address] [place], [place] [phone] PCP - General Family Medicine 04/27/21 documented as of this encounter
[2024-03-01 18:45] LABS: Anion Gap 5.6 mmol/L (3-11); BUN 50 mg/dL (7-18); CO2 31.4 mmol/L (21.0-32.0); CREATININE 1.8 mg/dL (0.70-1.30); Calcium 9.7 mg/dL (8.5-10.1); Chloride 96 mmol/L (98-107); Estimated GFR 42.03 (mL/min/1.73m2); Glucose 142 mg/dL (74-106); NT-proBNP 234 pg/mL (<300); Potassium 4.3 mmol/L (3.5-5.1); Sodium 133 mmol/L (136-145)
[2024-03-01 19:43] LABS: COMMENT (LAB VIEW ONLY) 43.93 mg/dL; Microalb ug/mg Crea 7.5 ug/mg Cr
== END 2024-03-01 15:15 | disposition home or self-care (01) ==
LOC: NCHCN 15:14
PROVIDERS: PCP Family Medicine; Visit Provider Family Medicine
DX: E11.9 Type 2 diabetes mellitus without complications (principal); R60.0 Localized edema; B95.62 Methicillin resistant Staphylococcus aureus infection as the cause of diseases classified elsewhere
CPT/HCPCS: 80048; 82043; 82570; 83880

== ENCOUNTER 2024-08-05 16:52 | Outpatient (REF) | payer MEDICAID, SELFPAY ==
[2024-08-05 16:04] LABS: Anion Gap 6.1 mmol/L (3-11); BUN 29 mg/dL (7-18); CO2 29.9 mmol/L (21.0-32.0); CREATININE 1.9 mg/dL (0.70-1.30); Calcium 9.5 mg/dL (8.5-10.1); Chloride 98 mmol/L (98-107); Estimated GFR 39.39 (mL/min/1.73m2); Glucose 261 mg/dL (74-106); Potassium 4.3 mmol/L (3.5-5.1); Sodium 134 mmol/L (136-145)
== END 2024-08-05 16:53 | disposition home or self-care (01) ==
LOC: NCHCN 16:52
PROVIDERS: PCP Family Medicine; Visit Provider Family Medicine
DX: I10 Essential (primary) hypertension (principal)
CPT/HCPCS: 80048

== ENCOUNTER 2024-08-14 01:53 | Outpatient (CLI) | payer MEDICAID, SELFPAY ==
--- NOTE | 2024-08-14 | DI.US_ITS ---
Exam(s) US RENAL EXAM: US RENAL CLINICAL HISTORY: CKD, stage IIIB, N18.32 TECHNIQUE: Ultrasound of both kidneys performed using standard protocol. COMPARISON: US US LOWER EXTREMITY VENOUS RT from 12/22/2021 FINDINGS: RIGHT KIDNEY: Measures 12.8 cm in length. No cysts evident. Normal cortical thickness and corticomedullary differen tiation .No solid masses No intrarenal calculi nor hydronephrosis. LEFT KIDNEY: Measures 2.0 cm in length. No cysts evident. Normal cortical thickness and corticomedullary differen tiaion. No solids masses. No intrarenal calculi nor hydonephrosis. URINARY BLADDER: Prevoid volume is 157 cc Postvoid volume: Patient was apparently not able to void. According to the technologist this is becau se of patient was dizzy. Ultrasound search for the prostate gland did not reveal a large prostate gla nd, according to the technologist. No evidence of obvious bladder mass nor diverticuli. No shadowing calculi seen within the urinary bl adder lumen. Ureterovesical jets: Both not visualized IMPRESSION: 1. No significant focal ultrasound findings in the kidneys. 2. Although there are no obvious focal findings in the urinary bladder, the patient was apparently n ot able to for void in able to obtain a postvoid bladder volume determination. This is apparently bec ause the patient was not feeling well/feeling dizzy and was sent to the emergency room. DATA REPOSITORY:
== END 2024-08-14 02:13 ==
LOC: DI 01:53
PROVIDERS: PCP Family Medicine; Visit Provider Family Medicine
DX: N18.32 Chronic kidney disease, stage 3b (principal)
CPT/HCPCS: 76770

== ENCOUNTER 2024-08-14 14:19 | Emergency (ER) | payer MEDICAID, SELFPAY ==
[2024-08-14] VITALS (199 sets, daily range): BP systolic 54–176; BP diastolic 23–97; PULSE 63–80; RESP 8–24; TEMP 36.8; O2SAT 85–100
--- NOTE | 2024-08-14 14:15 | RT.EKG_ITS ---
APPROVED REPORT Exam: Resting ECG Reason for Exam: syncope Patient Location: E HR:72 bpm ECG Measurements Heart Rate 72 AXIS AL 206 P -23 QRSd 125 QRS -16 QT 449 T 29 QTc 492 Conclusion Sinus rhythm...normal P axis, V-rate 60- 99 IVCD, consider RBBB...QRSd>120mS, terminal axis(90,270) Anterolateral infarct, old...Q>40mS, abnrm ST-T, V3-V6,I,aVL No STEMI
--- NOTE | 2024-08-14 14:45 | DI.CT_ITS ---
Exam(s) CT THORAX ABD/PEL CTA EXAM: CT THORAX ABD/PEL CTA CLINICAL HISTORY: Chest pain concern for dissection. TECHNIQUE: Imaging Protocol: Axial computed tomography images with coronal and sagittal reformatted images were created and reviewed CONTRAST MATERIAL: Intravenous: Omnipaque 350 Contrast volume:100 ml Oral: None COMPARISON: CT CT BRAIN NECK CTA from 09/15/2023 FINDINGS: CHEST: AORTA: The diameter of the ascending thoracic aorta is upper normal. There is no evidence of aortic dissection nor pericardial effusion. Diameter of the descending thoracic aorta is normal. There is no evidence of abdominal aortic aneurysm nor significant atherosclerotic disease in the abdominal aor ta and aortic bifurcation nor within the iliac arteries and there is also no evidence of aneurysm nor dissection of the iliac arteries nor of the common femoral arteries. There is no significant stenosis at the origin of the great vessels off the aortic arch. In the abdomen there is no significant stenosis in the celiac and superior mesenteric arteries and th e inferior mesenteric artery is patent. There is also no significant stenosis in the renal arteries. LUNGS: No infiltrates nor pleural effusions. No ominous pulmonary nodules. No significant lung mass es. No findings in the trachea and mainstem bronchi.. MEDIASTINUM: There is no hilar nor mediastinal adenopathy. Visualized thyroid unremarkable. CARDIAC: Heart size is normal. There is no pericardial effusion. ABDOMEN: There is no evidence of abdominal aortic aneurysm nor dissection.There is no aneurysmal dilatation of the common iliac arteries.The celiac and superior mesenteric arteries are patent. There is no ascites. LIVER: Mild hepatic steatosis. No discrete focal hepatic lesions evident. No dilated intrahepatic d ucts. GALLBLADDER/BILIARY: No obvious gallbladder pathology. CBD is not dilated. PANCREAS: No evidence of pancreatic mass nor dilatation of the pancreatic duct. SPLEEN: Spleen size is upper normal. There are no splenic lesions evident. Splenic and portal veins are patent. ADRENALS: There are no significant adrenal masses. KIDNEYS: No cysts evident. No calculi nor hydronephrosis. No solid renal masses. ABDOMINAL AORTA: The abdominal aorta is not enlarged. LYMPH NODES: There is no retroperitoneal nor para-aortic adenopathy. No obvious mesenteric masses. ABDOMINAL WALL: There is evidence of previous anterior abdominal wall hernia mesh repair. Although t here is no collection at this level, there is a cellulitis pattern over the anterior right and left a bdominal flores with skin thickening bilaterally and that subcutaneous induration but no drainable flu id collection. (Series 8/image 102) GI: There is no evidence of bowel obstruction, free air, nor abscess. PELVIS: LYMPH NODES: There is no intrapelvic nor inguinal adenopathy. GI: No evidence of appendicitis.No evidence of sigmoid diverticulitis. URINARY BLADDER: No calculi nor masses evident REPRODUCTIVE: Prostate size upper normal. Seminal vesicles unremarkable. OSSEOUS: No significant osseous lesions. No fractures. Mild degenerative anterolisthesis of L3 upon L4 and mild disc space narrowing at this level. Other disc levels in the lumbar spine exhibit normal height and no listhesis. IMPRESSION: 1. No evidence of aortic dissection nor pericardial effusion, as per request. Minimal atheroscleroti c disease in the thoracic and abdominal aorta. No aneurysms. No significant stenoses in the aorta a nd aortoiliac segments. 2. No significant intrathoracic findings. 3. No acute findings within the abdomen and pelvis. However, there is a cellulitis pattern over the anterior abdominal wall over both sides with skin thickening and subcutaneous induration, right more than left. There is, however, no drainable subcutaneous fluid collection. 4. There is evidence of anterior abdominal wall hernia mesh repair. Report called by myself to the emergency room physician 08/14/2024 at 4 p.m. RADIATION DOSE DELIVERED: 1,914.68mGy.cm Total DLP DATA REPOSITORY: All CT scans at this facility are submitted to the National Radiology Data Registry (NRDR) Dose Index Registry (DIR) with the [employer] (ACR). RADIATION OPTIMIZATION: All CT scans at this facility use at least one of these dose optimization te chniques: automated exposure control; mA and/or kV adjustment per patient size (includes targeted exa ms where dose is matched to clinical indication); or iterative reconstruction.
[2024-08-14] MEDS: Normal Saline 500 ML IV (14:46)
[2024-08-14 14:49] LABS: Abs Immature Grans 0.09 10^3/uL (0.0-0.06); Absolute Basophil Count 0.08 10^3/uL (0.0-0.2); Absolute Eosinophil Count 0.08 10^3/uL (0.0-0.7); Absolute Monocyte Count 0.85 10^3/uL (0.1-0.8); Basophils % 0.7 %; Eosinophils % 0.7 %; HCT 38.4 % (40.0-50.0); HGB 13.4 g/dL (13.5-17.5); Immature Grans % 0.8 %; Lymphocytes % 10.3 %; MCH 30.9 pg (27.0-33.0); MCHC 34.9 % (32.0-36.0); MCV 89 fL (80-95); MPV 9.7 fL (8.0-11.0); Monocytes % 7.3 %; Neutrophils % 80.2 %; Platelet Count 290 10^3/uL (130-400); RBC 4.33 10^6/uL (4.36-5.78); RDW 12.2 % (11.8-14.1); RDW-SD 40.1 fL; WBC 11.66 10^3/uL (4.4-10.8)
[2024-08-14 14:50] LABS: Absolute Neutrophil Count 9.35 10^3/uL (1.2-6.7)
[2024-08-14] MEDS: Normal Saline 1,000 ML 1000 ML IV (14:50)
--- NOTE | 2024-08-14 14:53 | ED.GENADUL_ITS ---
Discharge Plan Disposition Patient Disposition: Transfer-Acute Inpatient Care Specific Acute Inpt Facility: [facility] Discharge Details Clinical Impression: Acute renal failure Primary Care Provider: Jamilah Harman ED Provider: Jeffrey Rodriguez [place] Meds and New Rx's Prescriptions: No Action insulin glargine [Lantus Solostar U-100 Insulin] 100 unit/mL (3 mL) insulin pen 62 unit SUBCUT QPM torsemide 20 mg tablet 20 mg PO BID Jardiance 10 mg tablet 10 mg PO DAILY atorvastatin [Lipitor] 40 mg tablet 40 mg PO DAILY hydrocortisone 2.5 % cream 1 applic topical BID PRN insulin aspart U-100 [Novolog PenFill U-100 Insulin] 100 UNIT/ML cartridge 1 sliding scale dose subcut DIRECTED Patient Comments: 07/26/18 sliding scale (DME) Dexcom G7 Sensor Device MISCELLANEOUS Patient Comments: CHANGE SENSOR EVERY 10 DAYS Trulicity 4.5 mg/0.5 mL pen injector 4.5 mg SUBCUT .WEEKLY Patient Comments: INJECT 4.5 MG UNDER THE SKIN ONCE WEEKLY lisinopril 20 mg tablet 20 mg PO DAILY Patient Comments: TAKE ONE TABLET BY MOUTH DAILY metformin 1,000 mg tablet 1,000 mg PO BID Patient Comments: TAKE ONE TABLET BY MOUTH TWICE A DAY insulin aspart U-100 100 unit/mL (3 mL) insulin pen See Rx Instructions SUBCUT .COMPLEX Patient Comments: INJECT 25-35 UNITS UNDER THE SKIN PER SLIDING SCALE THREE TIMES A DAY Rx Instructions: 25-35 units subcutaneously; HPI General Date/Time Provider Initiated Documentation: 08/14/24 14:39 . HPI Narrative: MDM Broad differential in this hypotensive normothermic and not tachycardic 63-year-old diabetic including aortic dissection for which patient will undergo emergent CT angiogram of his thorax abdomen pelvis. Patient has nonischemic ECG though given his chest pain NSTEMI is certainly on the differential. Patient not been vomiting to suggest DKA though he is diabetic and DKA certainly on the differential. Will cover patient for sepsis with ceftriaxone and vancomycin. I considered CVA have the patient is neurologically intact so I do not feel he requires an MRI nor would he be a candidate for thrombolytics. No pain out of portion to suggest necrotizing soft tissue infection.Patient received 1400 cc of crystalloid. Will initiate peripheral norepinephrine at 2.5 mcg to maintain MAP greater than 65. Is unclear whether or not his dizziness and weakness has caused him to take less by mouth and lead to renal injury versus symptomatic from his renal injury. 8:40 PM Late charting due to patient care. Patient is receiving 1/3 L of IV fluids. His MAP is currently 78 on 3 mcg norepinephrine. I was in touch with Dr. Jack from the MICU team at [facility] who accepted the patient on behalf of Dr. Mario in the setting of his oliguric renal failure. We have placed a Ramirez catheter. His CT scan was concerning for the possibility of abdominal wall cellulitis. He does note that he does inject insulin into his abdominal wall however he is not tender on his abdomen nor does he have any skin changes consistent with cellulitis. Urine studies have been sent. Patient does have an elevated BUN however is not uremic.He has not had any fevers nor cough to suggest flu that I sent to swab given need for recording. No black or bloody stools to suggest GI bleed.. He has no anion gap to suggest DKA. He did not have any respiratory symptoms so I did not send out me his blood gas. I ordered the patient's home 62 units glargine.He was hyperglycemic but had no anion gap to suggest DKA. He has put out 1200 cc of urine in the past several hours since his Ramirez catheter was placed. He remains on 6 mcg/min of norepinephrine. Chronic conditions affecting the care of the patient: Diabetes History obtained from an outside historian: N/A External record review: [facility] [place] [place] Diagnostic interpretations performed by me: Per my independent interpretation EKG shows: First-degree AV block interventricular conduction delay normal sinus rhythm rate of 72. Nonischemic. ]Medications: Fluids cefepime vancomycin Social determinants of health affecting disposition: N/A Management discussed with: Critical care [facility] Treatment/interventions considered: N/A Response to therapies provided: N/A HPI This is a 63-year-old male with history of diabetes arrived to the emergency department in setting of dizziness with upper chest and back pain which began today. He reports that he has felt generally tired for the past 1 and half weeks. He is having some pain in his back and his neck. He has not had any shortness of breath. He is a daily tobacco user but denies routine ethanol and illicits. He has not had any nausea vomiting. He has been taking less by mouth. Exam General: Well-appearing in no acute distress speaking in complete sentences. Head: Normocephalic, atraumatic. Eye: Extraocular eye movements intact. No conjunctival injection. No scleral icterus. Ear, nose, mouth, throat: Grossly normal inspection. Normal voice, handling secretions normally. Neck: Trachea midline. Cardiovascular: Well-perfused distal extremities. Regular rate and rhythm. Respiratory: Nonlabored respiration. Clear lungs bilaterally. Gastrointestinal: Nondistended abdomen. Soft nontender. Well-healed midline surgical scar. Musculoskeletal: No significant lower extremity pitting edema. Moving all 4 extremities spontaneously. Skin: Normal for age and race, grossly normal temperature and turgor. No acute rash. Neurologic: Alert and appropriate, no apparent acute deficits. GCS 15. Related Data Home Medications ?Medication ?Instructions ?Recorded ?Confirmed insulin aspart U-100 100 unit/mL 1 sliding scale dose subcut 06/27/14 08/14/24 subcutaneous cartridge (Novolog DIRECTED PenFill U-100 Insulin aspart) atorvastatin 40 mg tablet (Lipitor) 40 mg PO DAILY 08/25/21 08/14/24 hydrocortisone 2.5 % topical cream 1 applic topical BID PRN 08/25/21 08/14/24 blood-glucose sensor (Dexcom G7 09/20/23 08/14/24 Sensor device) dulaglutide 4.5 mg/0.5 mL 4.5 mg subcut .WEEKLY 09/20/23 08/14/24 subcutaneous pen injector (Trulicity) lisinopril 20 mg tablet 20 mg PO DAILY 09/20/23 08/14/24 metformin 1,000 mg tablet 1,000 mg PO BID 09/20/23 08/14/24 insulin glargine 100 unit/mL (3 62 unit subcut QPM 11/01/23 08/14/24 mL) subcutaneous pen (Lantus Solostar U-100 Insulin) empagliflozin 10 mg tablet 10 mg PO DAILY 01/30/24 08/14/24 (Jardiance) torsemide 20 mg tablet 20 mg PO BID 01/30/24 08/14/24 insulin aspart U-100 100 unit/mL See Rx Instructions subcut .COMPLEX 08/14/24 08/14/24 (3 mL) subcutaneous pen Allergies Allergy/AdvReac Type Severity Reaction Status Date / Time No Known Allergies Allergy Verified 08/14/24 14:27 General Stated Complaint: Dizzy/Sync OJÃO: 3 Course Vital Signs Vital signs: Vital Signs Temperature 36.8 C 08/14/24 14:29 Pulse 75 08/14/24 14:29 Respiratory Rate 20 08/14/24 14:29 Blood Pressure 66/24 L 08/14/24 14:29 Pulse Oximetry 99 08/14/24 14:29 Temperature 36.8 C 08/14/24 14:29 Pulse 75 08/14/24 14:29 Respiratory Rate 20 08/14/24 14:29 Respiratory Effort Normal, Non-Labored 08/14/24 14:34 Respiratory Depth Normal 08/14/24 14:34 Respiratory Pattern Normal 08/14/24 14:34 Blood Pressure 84/36 L 08/14/24 14:33 Pulse Oximetry 99 08/14/24 14:29 Pain Level 0 08/14/24 14:29 Lab/Test Results Lab/Test Results: 08/14/24 14:51 Blood Blood Culture - Pending 08/14/24 14:51 Blood Blood Culture - Pending Laboratory Tests Range/Units 08/14/24 14:38 WBC (4.4-10.8) 10^3/uL 11.66 H RBC (4.36-5.78) 10^6/uL 4.33 L Hgb (13.5-17.5) g/dL 13.4 L Hct (40.0-50.0) % 38.4 L MCV (80-95) fL 89 MCH (27.0-33.0) pg 30.9 MCHC (32.0-36.0) % 34.9 RDW (11.8-14.1) % 12.2 Plt Count (130-400) 10^3/uL 290 MPV (8.0-11.0) fL 9.7 Immature Gran % % 0.8 Neutrophils % % 80.2 Lymphocytes % % 10.3 Monocytes % % 7.3 Eosinophils % % 0.7 Basophils % % 0.7 Nucleated RBC % (0.0-0.3) % 0.0 Absolute Neutrophils (1.2-6.7) 10^3/uL 9.35 H Absolute Lymphocytes (1.2-3.4) 10^3/uL 1.20 Absolute Monocytes (0.1-0.8) 10^3/uL 0.85 H Absolute Eosinophils (0.0-0.7) 10^3/uL 0.08 Absolute Basophils (0.0-0.2) 10^3/uL 0.08 Medical Decision Making Quality:SDOH Health Related Social Needs: No Data to Display Critical Care Time Critical Care Time Critical Care Time: Yes Total Critical Care Time: 60 Attestation: Hypotensive bedside assessment monitoring PFSH All Active Problems Acute renal failure (Acute) Long toenail (Acute) Peripheral neuropathy (Acute) Type 2 diabetes mellitus with peripheral neuropathy (Acute) Ischemic ulcer of right foot with fat layer exposed (Acute) Ulcer of right foot with fat layer exposed (Acute) Osteomyelitis of great toe of right foot (Acute) COPD (chronic obstructive pulmonary disease) (Chronic) Acute osteomyelitis of right ankle or foot (Acute) Cellulitis of foot, right (Acute) Diabetic foot ulcer (Acute) Head injury (Acute) Elevated serum creatinine (Acute) Weakness (Acute) Altered behavior (Acute) Sinusitis (Acute) 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 Low back pain (Chronic) Tobacco abuse (Chronic) Stage 2 moderate COPD by GOLD classification (Chronic) Diabetes with retinopathy (Chronic) Diabetes mellitus (Chronic) Tendonitis of left rotator cuff (Acute) Subacromial injection: 11/05/18 Status post cataract extraction and insertion of intraocular lens of left eye (Chronic 08/13/18) Status post cataract extraction and insertion of intraocular lens of right eye (Chronic 07/30/18) Medical History Obesity (BMI 30-39.9) Hx of falling Obesity Rotator cuff syndrome of right shoulder Learning disability Leg edema Diabetic retinopathy Chronic eczematoid otitis externa of right ear Impacted cerumen, right ear Eructation Carpal tunnel syndrome, bilateral Obstructive sleep apnea Hyperlipidemia Hypertension Cortical cataract of left eye Nuclear sclerotic cataract of left eye Cortical cataract of right eye Nuclear sclerotic cataract of right eye Family History Father Diabetes Social History Smoking/Tobacco Use Status: Current every day Tobacco Type: cigarettes Smoking risk assessment performed?: Yes Alcohol Intake: former Drug use: Rarely Substance use type: marijuana Housing: homeless Do you feel safe at home: Yes Do you feel safe in your relationship?: Yes
[2024-08-14] MEDS: Norepinephrine in D5W 8 MG/250 ML BAG 9.375 MG IV ×2 (14:57→18:08)
[2024-08-14 15:05] LABS: INR 1.1 (0.9-1.1); Prothrombin Time 10.7 sec (9.1-11.1)
[2024-08-14] MEDS: cefTRIAXone 2 GM/50 ML BAG IVPB (15:05)
[2024-08-14] MEDS: Omnipaque 350 MG/ML 100 ML BTL IJ (15:32)
[2024-08-14 15:33] LABS: Troponin I 20 ng/L (<or=76)
[2024-08-14] MEDS: Normal Saline - Diluent 50 ML VIAL IJ (15:34)
[2024-08-14] MEDS: VANCOMYCIN 2,000 MG in Normal Saline 500 ML 333.3333 MG IVPB (15:57)
[2024-08-14 16:09] LABS: Troponin I 18 ng/L (<or=76)
[2024-08-14 16:30] LABS: COVID-19 PCR Negative (Negative); Influenza A PCR Negative (Negative); Influenza B PCR Negative (Negative); RSV PCR Negative (Negative)
[2024-08-14 16:31] LABS: Source Nasopharynx
[2024-08-14 16:52] LABS: Lactate 2.1 mmol/L (<or=2.0)
[2024-08-14 17:10] LABS: ALT 28 U/L (16-63); AST 27 U/L (15-37); Albumin 3.8 g/dL (3.4-5.0); Alkaline Phosphatase 114 U/L (46-116); Anion Gap 14.6 mmol/L (3-11); CO2 26.4 mmol/L (21.0-32.0); Calcium 9.8 mg/dL (8.5-10.1); Chloride 91 mmol/L (98-107); Estimated GFR 11.77 (mL/min/1.73m2); Glucose 191 mg/dL (74-106); Potassium 3.8 mmol/L (3.5-5.1); Sodium 132 mmol/L (136-145); Total Protein 8.6 g/dL (6.4-8.2)
[2024-08-14 17:13] LABS: BUN 92 mg/dL (7-18); CREATININE 5.2 mg/dL (0.70-1.30)
[2024-08-14] MEDS: Normal Saline Flush 10 ML SYR IVP (17:39)
[2024-08-14 18:04] LABS: Anion Gap 9.7 mmol/L (3-11); CO2 28.3 mmol/L (21.0-32.0); Calcium 8.9 mg/dL (8.5-10.1); Chloride 94 mmol/L (98-107); Estimated GFR 13.29 (mL/min/1.73m2); Glucose 170 mg/dL (74-106); Potassium 3.8 mmol/L (3.5-5.1); Sodium 132 mmol/L (136-145)
[2024-08-14 18:07] LABS: BUN 87 mg/dL (7-18); CREATININE 4.7 mg/dL (0.70-1.30)
[2024-08-14 18:13] LABS: Bilirubin Negative (Negative); Blood Trace-lysed (Negative); Clarity Clear (Clear); Glucose 250 mg/dL (Negative); Ketones Negative (Negative); Leukocyte Esterase Negative (Negative); Nitrite Negative (Negative); Urobilinogen 0.2 mg/dL (Up to 0.2); pH 5.5 (5-8)
[2024-08-14 18:26] LABS: Bacteria Negative HPF (Negative); C & S Indicated? No; Crystals Negative HPF (Negative); Epithelial Cells Negative HPF (Negative); Mucus Negative (Negative); RBC 0-2 HPF (0-2); WBC Negative HPF (0-5)
[2024-08-14 18:34] LABS: Creatinine,Urine 56.21 mg/dL; Sodium, Urine 57 mmol/L
[2024-08-14 18:50] LABS: Lab Add On Test DONE
[2024-08-14 19:25] LABS: Creatine Kinase 277 U/L (39-308)
[2024-08-14] MEDS: Lidocaine 2% Jelly 6 ML SYR (19:56)
[2024-08-14] MEDS: Normal Saline 500 ML 1000 ML IV (19:57)
[2024-08-14 21:44] LABS: Anion Gap 9.6 mmol/L (3-11); CO2 27.4 mmol/L (21.0-32.0); Calcium 8.8 mg/dL (8.5-10.1); Chloride 95 mmol/L (98-107); Glucose 253 mg/dL (74-106); Potassium 3.5 mmol/L (3.5-5.1); Sodium 132 mmol/L (136-145)
[2024-08-14 21:46] LABS: BUN 89 mg/dL (7-18); CREATININE 4.5 mg/dL (0.70-1.30)
[2024-08-14] MEDS: Insulin Glargine 100 UNITS/ML UNIT 62 UNITS SC (23:19)
[2024-08-15 00:07] VITALS: PULSE 73; RESP 22; TEMP 37; O2SAT 97
== END 2024-08-15 00:19 | disposition short-term general hospital (02) ==
PROVIDERS: Emergency Provider Emergency Medicine; PCP Family Medicine
DX: N17.9 Acute kidney failure, unspecified (principal); J44.9 Chronic obstructive pulmonary disease, unspecified; I10 Essential (primary) hypertension; E78.5 Hyperlipidemia, unspecified; E11.42 Type 2 diabetes mellitus with diabetic polyneuropathy; Z79.4 Long term (current) use of insulin; Z79.84 Long term (current) use of oral hypoglycemic drugs; F17.210 Nicotine dependence, cigarettes, uncomplicated
CPT/HCPCS: 36415; 71275; 80048; 80053; 82550; 82962; 86850; 86900; 86901; 87040; 87637; 93005; 93308; 96365; 96366; 96367; 96368; 99285; 74174; 81003; 81015; 82565; 83605; 83735; 84300; 84484; 85025; 85610; 93010; J0696; J1815; J3370; J3490

== ENCOUNTER 2024-08-23 15:34 | Outpatient (REF) | payer MEDICAID, SELFPAY ==
[2024-08-23 18:32] LABS: Anion Gap 7.8 mmol/L (3-11); BUN 20 mg/dL (7-18); CO2 27.2 mmol/L (21.0-32.0); CREATININE 1.4 mg/dL (0.70-1.30); Calcium 9.2 mg/dL (8.5-10.1); Chloride 104 mmol/L (98-107); Estimated GFR 56.83 (mL/min/1.73m2); Glucose 153 mg/dL (74-106); Potassium 4.6 mmol/L (3.5-5.1); Sodium 139 mmol/L (136-145)
== END 2024-08-23 15:35 | disposition home or self-care (01) ==
LOC: NCHCN 15:34
PROVIDERS: PCP Family Medicine; Visit Provider Family Medicine
DX: N18.32 Chronic kidney disease, stage 3b (principal)
CPT/HCPCS: 80048

== ENCOUNTER 2024-09-11 10:08 | Outpatient (REF) | payer MEDICAID, SELFPAY ==
[2024-09-11 15:34] LABS: Anion Gap 7.1 mmol/L (3-11); BUN 23 mg/dL (7-18); CO2 31.9 mmol/L (21.0-32.0); CREATININE 1.7 mg/dL (0.70-1.30); Calcium 9.4 mg/dL (8.5-10.1); Chloride 100 mmol/L (98-107); Estimated GFR 45.02 (mL/min/1.73m2); Glucose 191 mg/dL (74-106); Potassium 4.5 mmol/L (3.5-5.1); Sodium 139 mmol/L (136-145)
== END 2024-09-11 10:09 | disposition home or self-care (01) ==
LOC: NCHCN 10:08
PROVIDERS: PCP Family Medicine; Visit Provider Family Medicine
DX: R60.0 Localized edema (principal)
CPT/HCPCS: 80048

== ENCOUNTER 2024-09-23 12:26 | Outpatient (REF) | payer MEDICAID, SELFPAY ==
[2024-09-23 16:18] LABS: BUN 34 mg/dL (7-18); CREATININE 1.8 mg/dL (0.70-1.30); Calcium 9.7 mg/dL (8.5-10.1); Chloride 99 mmol/L (98-107); Estimated GFR 41.77 (mL/min/1.73m2); Glucose 124 mg/dL (74-106); Potassium 4.1 mmol/L (3.5-5.1); Sodium 139 mmol/L (136-145)
== END 2024-09-23 12:27 | disposition home or self-care (01) ==
LOC: NCHCN 12:26
PROVIDERS: PCP Family Medicine; Visit Provider Family Medicine
DX: N18.32 Chronic kidney disease, stage 3b (principal)
CPT/HCPCS: 80048; 83735

== ENCOUNTER 2024-10-07 12:10 | Outpatient (REF) | payer MEDICAID, SELFPAY ==
[2024-10-07 11:18] LABS: Anion Gap 10.4 mmol/L (3-11); BUN 20 mg/dL (7-18); CO2 25.6 mmol/L (21.0-32.0); CREATININE 1.5 mg/dL (0.70-1.30); Calcium 9.3 mg/dL (8.5-10.1); Chloride 103 mmol/L (98-107); Estimated GFR 51.99 (mL/min/1.73m2); Glucose 195 mg/dL (74-106); Potassium 4.8 mmol/L (3.5-5.1); Sodium 139 mmol/L (136-145)
== END 2024-10-07 12:11 | disposition home or self-care (01) ==
LOC: NCHCN 12:10
PROVIDERS: PCP Family Medicine; Visit Provider Family Medicine
DX: R60.0 Localized edema (principal)
CPT/HCPCS: 80048

== ENCOUNTER 2024-10-22 11:23 | Outpatient (REF) | payer MEDICAID, SELFPAY ==
[2024-10-22 15:52] LABS: Anion Gap 10.1 mmol/L (3-11); BUN 25 mg/dL (7-18); CO2 24.9 mmol/L (21.0-32.0); CREATININE 1.3 mg/dL (0.70-1.30); Calcium 9.5 mg/dL (8.5-10.1); Chloride 105 mmol/L (98-107); Estimated GFR 61.73 (mL/min/1.73m2); Glucose 130 mg/dL (74-106); Potassium 4.5 mmol/L (3.5-5.1); Sodium 140 mmol/L (136-145)
== END 2024-10-22 11:24 | disposition home or self-care (01) ==
LOC: NCHCN 11:23
PROVIDERS: PCP Family Medicine; Visit Provider Family Medicine
DX: R60.0 Localized edema (principal)
CPT/HCPCS: 80048

== ENCOUNTER 2025-03-01 13:37 | Observation (INO) | payer MEDICAID, SELFPAY ==
[2025-03-01] VITALS (23 sets, daily range): BP systolic 126–169; BP diastolic 71–105; PULSE 57–118; RESP 12–21; TEMP 34.2–36.6; O2SAT 98–100
--- NOTE | 2025-03-01 13:45 | RT.EKG_ITS ---
APPROVED REPORT Exam: Resting ECG Reason for Exam: [facility] Patient Location: E HR:61 bpm ECG Measurements Heart Rate 61 AXIS SD 207 P 8 QRSd 113 QRS -23 QT 467 T 51 QTc 473 Conclusion Sinus rhythm...normal P axis, V-rate 60- 99 Incomplete right bundle branch block...QRSd >112, terminal axis(90,270) Low voltage, precordial leads...precordial leads <1.0mV
--- NOTE | 2025-03-01 13:50 | W.ED.GENAD ---
Discharge Plan Disposition Patient Disposition: Admit to [facility] Condition: Serious Discharge Details Clinical Impression: Hypoglycemia due to insulin, Syncope Primary Care Provider: Jamilah Harman ED Provider: Roya Shetty Home Meds and New Rx's Prescriptions: No Action insulin glargine [Lantus Solostar U-100 Insulin] 100 unit/mL (3 mL) insulin pen 62 unit SUBCUT QPM torsemide 20 mg tablet 20 mg PO BID Jardiance 10 mg tablet 10 mg PO DAILY atorvastatin [Lipitor] 40 mg tablet 40 mg PO DAILY insulin aspart U-100 [Novolog PenFill U-100 Insulin] 100 UNIT/ML cartridge 1 sliding scale dose subcut DIRECTED Patient Comments: 07/26/18 sliding scale (DME) Dexcom G7 Sensor Device MISCELLANEOUS Patient Comments: CHANGE SENSOR EVERY 10 DAYS Trulicity 4.5 mg/0.5 mL pen injector 4.5 mg SUBCUT .WEEKLY Patient Comments: INJECT 4.5 MG UNDER THE SKIN ONCE WEEKLY lisinopril 20 mg tablet 20 mg PO DAILY Patient Comments: TAKE ONE TABLET BY MOUTH DAILY metformin 1,000 mg tablet 1,000 mg PO BID Patient Comments: TAKE ONE TABLET BY MOUTH TWICE A DAY insulin aspart U-100 100 unit/mL (3 mL) insulin pen See Rx Instructions SUBCUT .COMPLEX Patient Comments: INJECT 25-35 UNITS UNDER THE SKIN PER SLIDING SCALE THREE TIMES A DAY Rx Instructions: 25-35 units subcutaneously; HPI General Mode of arrival: EMS. Date/Time Provider Initiated Documentation: 03/01/25 13:38. Limitations to Documentation: no limitations and physical limitation. Information obtained by: patient, RN/MD, EMS, RN notes reviewed and old records reviewed. HPI Narrative: Patient is an insulin-dependent diabetic 64-year-old male presents to the ER via EMS with a report of being found down by his family this morning. On scene BGL was 57 they gave him oral glucagon BGL was then 48 upon arrival patient's BGL is 37. Patient is awake, slightly confused, diaphoretic, tremulous and anxious. EMS was unable to get an IV started in the field IV is being started at this time. An amp of D50 ordered, D5 half-normal saline at 150 an hour drip ordered and placed an order to feed patient. Patient reportedly took 33 units of NovoLog this morning for a BGL of less than 150 and 64 units of Lantus this morning he does take Jardiance weekly and empagliflozin 10 mg daily Related Data Home Medications ?Medication ?Instructions ?Recorded ?Confirmed insulin aspart U-100 100 unit/mL 1 sliding scale dose subcut 06/27/14 03/01/25 subcutaneous cartridge (Novolog DIRECTED PenFill U-100 Insulin aspart) atorvastatin 40 mg tablet (Lipitor) 40 mg PO DAILY 08/25/21 03/01/25 blood-glucose sensor (DexFuelMyBlog G7 09/20/23 03/01/25 Sensor device) dulaglutide 4.5 mg/0.5 mL 4.5 mg subcut .WEEKLY 09/20/23 03/01/25 subcutaneous pen injector (Trulicity) lisinopril 20 mg tablet 20 mg PO DAILY 09/20/23 03/01/25 metformin 1,000 mg tablet 1,000 mg PO BID 09/20/23 03/01/25 insulin glargine 100 unit/mL (3 62 unit subcut QPM 11/01/23 03/01/25 mL) subcutaneous pen (Lantus Solostar U-100 Insulin) empagliflozin 10 mg tablet 10 mg PO DAILY 01/30/24 03/01/25 (Jardiance) torsemide 20 mg tablet 20 mg PO BID 01/30/24 03/01/25 insulin aspart U-100 100 unit/mL See Rx Instructions subcut .COMPLEX 08/14/24 03/01/25 (3 mL) subcutaneous pen Allergies Allergy/AdvReac Type Severity Reaction Status Date / Time No Known Allergies Allergy Verified 08/14/24 14:27 General JOÃO: 3 Review of Systems All systems reviewed & are unremarkable except as noted in HPI and below Constitutional Constitutional: Reports as per HPI Cardiovascular Cardiovascular: Denies chest pain, Reports diaphoresis and Reports syncope Gastrointestinal Gastrointestinal: Denies abdominal pain, Denies diarrhea and Denies vomiting Musculoskeletal Musculoskeletal: Reports tingling Neurologic Neurologic: Reports as per HPI, Reports confusion, Reports syncope and Reports tingling Psychiatric Psychiatric: Reports confusion Endocrine Endocrine: Reports as per HPI Exam Narrative Exam Narrative: Constitutional: Alert and oriented x 2 . Is confused. Appears stated age. Normal body habitus. Diaphoretic, Anxious and tremulous Head: Normocephalic, no trauma. Eyes: Pupils PERRL, Red reflex noted, EOM's intact. Eyelids symmetrical without lesions, discharge, or swelling. ENT: Bilateral TM's WNL, External ear normal to inspection, no mastoid TTP, swelling, or erythema, Nasal turbinates WNL, no nasal discharge. Normal dentition, Posterior pharynx WNL, no exudate. Chest: RRR, Normal S1, S2, distal pulses intact. Resp: Lungs clear to auscultation bilaterally, no wheezes, rales, or rhonchi. Abdomen: Soft, non-distended, Normoactive bowel sounds all 4 quads. Musculoskeletal: Unable to assess gait Moves all 4 extremities without difficulty. Skin: No suspicious rashes or lesions. Capillary refill less than 2 sec. Neurologic: . Alert and oriented x 2. Confused, states I'm in a bandaid room. No focal motor neuro defecits. Hematologic/Lymphatic: No ecchymosis, no lymphadenopathy. Medical Decision Making Patient is an insulin-dependent diabetic 64-year-old male presents to the ER via EMS with a report of being found down by his family this morning. On scene BGL was 57 they gave him oral glucagon BGL was then 48 upon arrival patient's BGL is 37. Patient is awake, slightly confused, diaphoretic, tremulous and anxious. EMS was unable to get an IV started in the field IV is being started at this time. An amp of D50 ordered, D5 half-normal saline at 150 an hour drip ordered and placed an order to feed patient. Patient reportedly took 33 units of NovoLog this morning for a BGL of less than 150 and 64 units of Lantus this morning he does take Jardiance weekly and empagliflozin 10 mg daily Diabetic workup ordered including CBC CMP troponin, EKG, UA, given 1 amp of D50 IV push upon arrival, D5 half-normal saline at 150 an hour. Will feed patient. After 1 amp of D50 BGL is 125. Patient took a reported 33 units of NovoLog this morning for BGL of less than 150 took 64 units of Lantus also this morning patient is unsure if ate breakfast. 1457: After patient ate a diet tray and the above-mentioned interventions informed by staff internist office based only that his last BGL is 509. D5 half normal saline drip stopped, BGL rechecked, 150, instructed RN to re-sart. Informed plan of care to admit patient patient verbalized understanding. 1508: Spoke with Dr. Santiago with hospitalist team, he agrees to accept patient for admission. Medical Records Medical records reviewed: Yes I reviewed the patient's medical records. Lab Data Lab results reviewed: Yes I reviewed the patient's lab results. Labs: Laboratory Tests Range/Units 03/01/25 13:52 WBC (4.4-10.8) 10^3/uL 10.03 RBC (4.36-5.78) 10^6/uL 4.77 Hgb (13.5-17.5) g/dL 14.5 Hct (40.0-50.0) % 43.3 MCV (80-95) fL 91 MCH (27.0-33.0) pg 30.4 MCHC (32.0-36.0) % 33.5 RDW (11.8-14.1) % 13.7 Plt Count (130-400) 10^3/uL 242 MPV (8.0-11.0) fL 9.8 Immature Gran % % 0.5 Neutrophils % % 80.0 Lymphocytes % % 9.9 Monocytes % % 7.8 Eosinophils % % 1.2 Basophils % % 0.6 Nucleated RBC % (0.0-0.3) % 0.0 Absolute Neutrophils (1.2-6.7) 10^3/uL 8.03 H Absolute Lymphocytes (1.2-3.4) 10^3/uL 0.99 L Absolute Monocytes (0.1-0.8) 10^3/uL 0.78 Absolute Eosinophils (0.0-0.7) 10^3/uL 0.12 Absolute Basophils (0.0-0.2) 10^3/uL 0.06 Sodium (136-145) mmol/L 140 Potassium (3.5-5.1) mmol/L 3.6 Chloride (98-107) mmol/L 102 Carbon Dioxide (21.0-32.0) mmol/L 28.4 Anion Gap (3-11) mmol/L 9.6 BUN (7-18) mg/dL 38 H Creatinine (0.70-1.30) mg/dL 1.4 H Est GFR (CKD-EPI 2020) (mL/min/1.73m2) 56.48 Glucose (74-106) mg/dL 103 Calcium (8.5-10.1) mg/dL 9.8 Magnesium (1.8-2.4) mg/dL 1.8 Total Bilirubin (0.2-1.0) mg/dL 0.6 AST (15-37) U/L 33 ALT (16-63) U/L 65 H Alkaline Phosphatase (46-116) U/L 159 H Troponin I (<or=76) ng/L 11 Total Protein (6.4-8.2) g/dL 9.0 H Albumin (3.4-5.0) g/dL 4.4 Critical Care Time Critical Care Time Critical Care Time: Yes Total Critical Care Time: 45 Attestation: I spent greater than 35 minutes addressing this patient's acute life threatening illness. This time was spent engaged in actions directly related to the patient's care. Failure to initiate these interventions would have likely resulted in clinically significant or life threatening deterioration in the patients condition. PFSH All Active Problems Syncope (Chronic) Hypoglycemia due to insulin (Acute) Long toenail (Acute) Peripheral neuropathy (Acute) Type 2 diabetes mellitus with peripheral neuropathy (Acute) Ischemic ulcer of right foot with fat layer exposed (Acute) Ulcer of right foot with fat layer exposed (Acute) Osteomyelitis of great toe of right foot (Acute) COPD (chronic obstructive pulmonary disease) (Chronic) Acute osteomyelitis of right ankle or foot (Acute) Cellulitis of foot, right (Acute) Diabetic foot ulcer (Acute) Head injury (Acute) Elevated serum creatinine (Acute) Weakness (Acute) Altered behavior (Acute) Sinusitis (Acute) 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 Low back pain (Chronic) Tobacco abuse (Chronic) Stage 2 moderate COPD by GOLD classification (Chronic) Diabetes with retinopathy (Chronic) Diabetes mellitus (Chronic) Tendonitis of left rotator cuff (Acute) Subacromial injection: 11/05/18 Status post cataract extraction and insertion of intraocular lens of left eye (Chronic 08/13/18) Status post cataract extraction and insertion of intraocular lens of right eye (Chronic 07/30/18) Medical History Obesity (BMI 30-39.9) Hx of falling Obesity Rotator cuff syndrome of right shoulder Learning disability Leg edema Diabetic retinopathy Chronic eczematoid otitis externa of right ear Impacted cerumen, right ear Eructation Carpal tunnel syndrome, bilateral Obstructive sleep apnea Hyperlipidemia Hypertension Cortical cataract of left eye Nuclear sclerotic cataract of left eye Cortical cataract of right eye Nuclear sclerotic cataract of right eye Family History Father Diabetes Social History Smoking/Tobacco Use Status: Current every day Tobacco Type: cigarettes Smoking risk assessment performed?: Yes Alcohol Intake: former Drug use: Rarely Substance use type: marijuana Do you feel safe at home: Yes Do you feel safe in your relationship?: Yes
[2025-03-01] MEDS: Dextrose 50%-Water 25 GM/50 ML SYR IVP (13:51)
[2025-03-01 14:05] LABS: Abs Immature Grans 0.05 10^3/uL (0.0-0.06); HCT 43.3 % (40.0-50.0); HGB 14.5 g/dL (13.5-17.5); Immature Grans % 0.5 %; MCH 30.4 pg (27.0-33.0); MCHC 33.5 % (32.0-36.0); MCV 91 fL (80-95); MPV 9.8 fL (8.0-11.0); Platelet Count 242 10^3/uL (130-400); RBC 4.77 10^6/uL (4.36-5.78); RDW 13.7 % (11.8-14.1); RDW-SD 46.0 fL; WBC 10.03 10^3/uL (4.4-10.8)
[2025-03-01] MEDS: DEXTROSE 5%-0.45% SALINE 1,000 ML 150 ML IV (14:09)
[2025-03-01 14:24] LABS: ALT 65 U/L (16-63); AST 33 U/L (15-37); Albumin 4.4 g/dL (3.4-5.0); Alkaline Phosphatase 159 U/L (46-116); Anion Gap 9.6 mmol/L (3-11); BUN 38 mg/dL (7-18); Bilirubin, Total 0.6 mg/dL (0.2-1.0); CO2 28.4 mmol/L (21.0-32.0); Calcium 9.8 mg/dL (8.5-10.1); Chloride 102 mmol/L (98-107); Estimated GFR 56.48 (mL/min/1.73m2); Glucose 103 mg/dL (74-106); Magnesium 1.8 mg/dL (1.8-2.4); Potassium 3.6 mmol/L (3.5-5.1); Sodium 140 mmol/L (136-145); Total Protein 9.0 g/dL (6.4-8.2); Troponin I 11 ng/L (<or=76)
--- NOTE | 2025-03-01 15:01 | W.PM.HP.N ---
Date of service: 03/01/25 Time of Service: 15:01 Assessment and Plan Assessment and plan (1) Hypoglycemia due to insulin: Status: Acute Assessment and plan: Referred for observation, but due to accidental insulin overdose Every hour glucose checks until stabilized Carb controlled diet (2) Type 2 diabetes mellitus with peripheral neuropathy: Status: Acute Assessment and plan: Hemoglobin A1c pending Diabetes management with adjustments as needed (3) COPD (chronic obstructive pulmonary disease): Status: Chronic Assessment and plan: Stable with no evidence of exacerbation (4) Hypertension: Status: Chronic Assessment and plan: Routine blood pressure monitoring Continue lisinopril adjust as needed (5) Obesity (BMI 30-39.9): Status: Acute Assessment and plan: Nutritional counseling for weight loss be continued by primary care provider outpatient (6) Hyperlipidemia: Status: Acute Assessment and plan: Continue statin History of Present Illness Narrative: This is a 64-year-old male patient past medical history significant for diabetes mellitus type 2, COPD, chronic kidney disease brought in to the emergency department by ambulance after being found down on the ground by family members. EMS found him to have a blood sugar of 57 and gave him oral glucagon but rechecked it show further drop in his glucose to 37. IV was established given D50 and started on D5 half-normal saline at 150 an hour. He reportedly took 33 units of NovoLog and was 64 units of Lantus 6 with his blood sugar less than 150. Hospitalist services is asked to observe him on the medical surgical unit. Review of Systems All systems reviewed & are unremarkable except as noted in HPI and below PFSH All Active Problems Hyperlipidemia (Acute) Obesity (BMI 30-39.9) (Acute) Hypertension (Chronic) Syncope (Chronic) Hypoglycemia due to insulin (Acute) Long toenail (Acute) Peripheral neuropathy (Acute) Type 2 diabetes mellitus with peripheral neuropathy (Acute) Ischemic ulcer of right foot with fat layer exposed (Acute) Ulcer of right foot with fat layer exposed (Acute) Osteomyelitis of great toe of right foot (Acute) COPD (chronic obstructive pulmonary disease) (Chronic) Acute osteomyelitis of right ankle or foot (Acute) Cellulitis of foot, right (Acute) Diabetic foot ulcer (Acute) Head injury (Acute) Elevated serum creatinine (Acute) Weakness (Acute) Altered behavior (Acute) Sinusitis (Acute) 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 Low back pain (Chronic) Tobacco abuse (Chronic) Stage 2 moderate COPD by GOLD classification (Chronic) Diabetes with retinopathy (Chronic) Diabetes mellitus (Chronic) Tendonitis of left rotator cuff (Acute) Subacromial injection: 11/05/18 Status post cataract extraction and insertion of intraocular lens of left eye (Chronic 08/13/18) Status post cataract extraction and insertion of intraocular lens of right eye (Chronic 07/30/18) Medical History Obesity (BMI 30-39.9) Hx of falling Obesity Rotator cuff syndrome of right shoulder Learning disability Leg edema Diabetic retinopathy Chronic eczematoid otitis externa of right ear Impacted cerumen, right ear Eructation Carpal tunnel syndrome, bilateral Obstructive sleep apnea Hyperlipidemia Hypertension Cortical cataract of left eye Nuclear sclerotic cataract of left eye Cortical cataract of right eye Nuclear sclerotic cataract of right eye Family History Father Diabetes Social History Smoking/Tobacco Use Status: Current every day Tobacco Type: cigarettes Smoking risk assessment performed?: Yes Alcohol Intake: former Drug use: Rarely Substance use type: marijuana Housing: apartment Do you feel safe at home: Yes Do you feel safe in your relationship?: Yes Meds Allergies and Home Medications Allergies Allergy/AdvReac Type Severity Reaction Status Date / Time No Known Allergies Allergy Verified 08/14/24 14:27 Home Medications ?Medication ?Instructions ?Recorded ?Confirmed ?Type insulin aspart U-100 100 unit/mL 1 sliding scale dose subcut 06/27/14 03/01/25 History subcutaneous cartridge (Novolog DIRECTED PenFill U-100 Insulin aspart) atorvastatin 40 mg tablet (Lipitor) 40 mg PO DAILY 08/25/21 03/01/25 History blood-glucose sensor (Dexcom G7 09/20/23 03/01/25 History Sensor device) dulaglutide 4.5 mg/0.5 mL 4.5 mg subcut .WEEKLY 09/20/23 03/01/25 History subcutaneous pen injector (Trulicity) metformin 1,000 mg tablet 1,000 mg PO BID 09/20/23 03/01/25 History insulin glargine 100 unit/mL (3 62 unit subcut QPM 11/01/23 03/01/25 History mL) subcutaneous pen (Lantus Solostar U-100 Insulin) empagliflozin 10 mg tablet 10 mg PO DAILY 01/30/24 03/01/25 History (Jardiance) torsemide 20 mg tablet 20 mg PO BID 01/30/24 03/01/25 History insulin aspart U-100 100 unit/mL See Rx Instructions subcut .COMPLEX 08/14/24 03/01/25 History (3 mL) subcutaneous pen Exam Narrative Exam Narrative: Chronically ill-appearing male older than stated age no acute distress head is atraumatic eyes nonicteric noninjected oral mucosa is slightly dry neck full range of motion cardiovascular regular rate and rhythm respirations even and unlabored abdomen obese soft nontender moves all extremities trace edema skin no rashes or lesions neurologic he is awake alert oriented psychiatric blunted mood and affect Results Labs 03/02/25 06:17 03/02/25 06:12 Labs: Laboratory Results - last 24 hr 03/01/25 13:52 WBC 10.03 RBC 4.77 Hgb 14.5 Hct 43.3 MCV 91 MCH 30.4 MCHC 33.5 RDW 13.7 Plt Count 242 MPV 9.8 Immature Gran % 0.5 Neutrophils % 80.0 Lymphocytes % 9.9 Monocytes % 7.8 Eosinophils % 1.2 Basophils % 0.6 Nucleated RBC % 0.0 Absolute Neutrophils 8.03 H Absolute Lymphocytes 0.99 L Absolute Monocytes 0.78 Absolute Eosinophils 0.12 Absolute Basophils 0.06 Sodium 140 Potassium 3.6 Chloride 102 Carbon Dioxide 28.4 Anion Gap 9.6 BUN 38 H Creatinine 1.4 H Est GFR (CKD-EPI 2020) 56.48 Glucose 103 Calcium 9.8 Magnesium 1.8 Total Bilirubin 0.6 AST 33 ALT 65 H Alkaline Phosphatase 159 H Troponin I 11 Total Protein 9.0 H Albumin 4.4 Last Vital Signs Temp 34.2 C L 03/01/25 13:43 Pulse 59 L 03/01/25 13:52 Resp 18 03/01/25 13:52 BP 145/90 H 03/01/25 13:52 Pulse Ox 100 03/01/25 13:52 Time Spent Time spent with Patient: 55-74 minutes Time was spent: preparing to see the patient(eg.review tests), obtaining and/or reviewing separately otained hiistory, ordering medications,tests, procedures, indepentently interpreting results and counseling the patient
[2025-03-01 15:45] LABS: Troponin I 10 ng/L (<or=76)
[2025-03-01 15:54] LABS: Glucose >=1000 mg/dL (Negative)
[2025-03-01 15:56] LABS: C & S Indicated? No; RBC 0-2 HPF (0-2); WBC Negative HPF (0-5)
--- NOTE | 2025-03-01 16:10 | W.PC.ACHO ---
Registration Status: REG ER Primary Language: Preferred Language: [place] ED Information & Data Chief Complaint Diabetes 03/01/25 14:04 Chief Complaint Diabetes 03/01/25 13:43 Triage Note Pt. brought in by EMS for 03/01/25 13:43 low blood sugar and altered mental status. Upon arrival, pt. alert, BSG upon arrival is 37. Medical / Surgical History (Last Reviewed 06/12/24 @ 10:00 by Cyndy Schilling DPM) Obesity (BMI 30-39.9) Hx of falling Obstructive sleep apnea Hyperlipidemia Hypertension Obesity Rotator cuff syndrome of right shoulder Learning disability Leg edema Diabetic retinopathy Chronic eczematoid otitis externa of right ear Impacted cerumen, right ear Eructation Carpal tunnel syndrome, bilateral Cortical cataract of left eye Nuclear sclerotic cataract of left eye Cortical cataract of right eye Nuclear sclerotic cataract of right eye Most Recent Vital Signs Temperature 34.2 C L 03/01/25 13:43 Temperature Source Tympanic 03/01/25 13:43 Pulse 60 03/01/25 15:01 Pulse Rhythm Regular 03/01/25 14:58 Pulse Strength Normal 03/01/25 14:58 Pulse 60 03/01/25 15:01 Respiratory Rate 16 03/01/25 15:01 Respiratory Effort Normal 03/01/25 14:58 Respiratory Depth Normal 03/01/25 14:58 Respiratory Pattern Normal 03/01/25 14:58 Blood Pressure 169/77 H 03/01/25 15:01 Blood Pressure Mean 108 03/01/25 15:01 Blood Pressure Position Sitting 03/01/25 14:58 Pulse Oximetry 98 03/01/25 15:01 Oxygen Delivery Method Room Air 03/01/25 14:58 Oxygen Flow Rate 0 03/01/25 14:58 Pain Level 0 03/01/25 14:58 Allergies No Known Allergies Allergy (Verified 08/14/24 14:27) Precautions Isolation Standard precaution 03/01/25 14:04 Active Medications Generic Name Dose Route Start Last Admin Trade Name Freq PRN Reason Stop Dose Admin Dextrose/Sodium Chloride 1,000 mls @ 150 mls/hr 03/01/25 13:47 03/01/25 14:09 Dextrose 5%-0.45% Ns IV 03/01/25 20:26 150 mls/hr INFUSION STA Administration IV IV Catheter Type [Right Saline Lock Antecubital] IV Catheter Gauge [Right 18 Antecubital] Diet Orders Category Date Time Status DIET [Diabetes Consistent CHO] [DIET] Nutrition 03/01/25 Lunch Active Diabetes Consistent CHO [DIET] Nutrition 03/01/25 Dinner Active Diagnostics 03/01/25 03/01/25 03/01/25 Range/Units Unknown 16:47 15:39 WBC (4.4-10.8) 10^3/uL RBC (4.36-5.78) 10^6/uL Hgb (13.5-17.5) g/dL Hct (40.0-50.0) % MCV (80-95) fL MCH (27.0-33.0) pg MCHC (32.0-36.0) % RDW (11.8-14.1) % Plt Count (130-400) 10^3/uL MPV (8.0-11.0) fL Immature Gran % % Neutrophils % % Lymphocytes % % Monocytes % % Eosinophils % % Basophils % % Nucleated RBC % (0.0-0.3) % Absolute Neutrophils (1.2-6.7) 10^3/uL Absolute Lymphocytes (1.2-3.4) 10^3/uL Absolute Monocytes (0.1-0.8) 10^3/uL Absolute Eosinophils (0.0-0.7) 10^3/uL Absolute Basophils (0.0-0.2) 10^3/uL Sodium (136-145) mmol/L Potassium (3.5-5.1) mmol/L Chloride (98-107) mmol/L Carbon Dioxide (21.0-32.0) mmol/L Anion Gap (3-11) mmol/L BUN (7-18) mg/dL Creatinine (0.70-1.30) mg/dL Est GFR (CKD-EPI 2020) (mL/min/1.73m2) Glucose (74-106) mg/dL Calcium (8.5-10.1) mg/dL Magnesium (1.8-2.4) mg/dL Total Bilirubin (0.2-1.0) mg/dL AST (15-37) U/L ALT (16-63) U/L Alkaline Phosphatase (46-116) U/L Troponin I Pending (<or=76) ng/L Total Protein (6.4-8.2) g/dL Albumin (3.4-5.0) g/dL Urine Color Yellow (Yellow) Urine Clarity Clear (Clear) Urine pH 5.5 (5-8) Ur Specific [place] 1.015 (1.005-1.025) Urine Protein 30 H (Neg-Trace) mg/dL Urine Ketones Negative (Negative) mg/dL Urine Blood Trace-intact H (Negative) Urine Nitrite Negative (Negative) Urine Bilirubin Negative (Negative) Urine Urobilinogen 0.2 (Up to 0.2) mg/dL Ur Leukocyte Esterase Negative (Negative) Urine RBC 0-2 (0-2) HPF Urine WBC Negative (0-5) HPF Ur Epithelial Cells Negative (Negative) HPF Urine Crystals Negative (Negative) HPF Urine Bacteria Negative (Negative) HPF Urine Casts Negative (Negative) LPF Urine Mucus Negative (Negative) Ur Culture Indicated? No Urine Glucose >=1000 H (Negative) mg/dL Add-On Test Request Pending 03/01/25 03/01/25 Range/Units 14:55 13:52 WBC 10.03 (4.4-10.8) 10^3/uL RBC 4.77 (4.36-5.78) 10^6/uL Hgb 14.5 (13.5-17.5) g/dL Hct 43.3 (40.0-50.0) % MCV 91 (80-95) fL MCH 30.4 (27.0-33.0) pg MCHC 33.5 (32.0-36.0) % RDW 13.7 (11.8-14.1) % Plt Count 242 (130-400) 10^3/uL MPV 9.8 (8.0-11.0) fL Immature Gran % 0.5 % Neutrophils % 80.0 % Lymphocytes % 9.9 % Monocytes % 7.8 % Eosinophils % 1.2 % Basophils % 0.6 % Nucleated RBC % 0.0 (0.0-0.3) % Absolute Neutrophils 8.03 H (1.2-6.7) 10^3/uL Absolute Lymphocytes 0.99 L (1.2-3.4) 10^3/uL Absolute Monocytes 0.78 (0.1-0.8) 10^3/uL Absolute Eosinophils 0.12 (0.0-0.7) 10^3/uL Absolute Basophils 0.06 (0.0-0.2) 10^3/uL Sodium 140 (136-145) mmol/L Potassium 3.6 (3.5-5.1) mmol/L Chloride 102 (98-107) mmol/L Carbon Dioxide 28.4 (21.0-32.0) mmol/L Anion Gap 9.6 (3-11) mmol/L BUN 38 H (7-18) mg/dL Creatinine 1.4 H (0.70-1.30) mg/dL Est GFR (CKD-EPI 2020) 56.48 (mL/min/1.73m2) Glucose 103 (74-106) mg/dL Calcium 9.8 (8.5-10.1) mg/dL Magnesium 1.8 (1.8-2.4) mg/dL Total Bilirubin 0.6 (0.2-1.0) mg/dL AST 33 (15-37) U/L ALT 65 H (16-63) U/L Alkaline Phosphatase 159 H (46-116) U/L Troponin I 10 11 (<or=76) ng/L Total Protein 9.0 H (6.4-8.2) g/dL Albumin 4.4 (3.4-5.0) g/dL Urine Color (Yellow) Urine Clarity (Clear) Urine pH (5-8) Ur Specific [place] (1.005-1.025) Urine Protein (Neg-Trace) mg/dL Urine Ketones (Negative) mg/dL Urine Blood (Negative) Urine Nitrite (Negative) Urine Bilirubin (Negative) Urine Urobilinogen (Up to 0.2) mg/dL Ur Leukocyte Esterase (Negative) Urine RBC (0-2) HPF Urine WBC (0-5) HPF Ur Epithelial Cells (Negative) HPF Urine Crystals (Negative) HPF Urine Bacteria (Negative) HPF Urine Casts (Negative) LPF Urine Mucus (Negative) Ur Culture Indicated? Urine Glucose (Negative) mg/dL Add-On Test Request [id number] Documentation Fingerstick Glucose Start: 03/01/25 13:43 Freq: Status: Complete Protocol: Activity Type Activity Date Activity User E-sign Co-sign Detail Recorded Client Recorded Date Recorded By Document 03/01/25 13:43 SB [id number] 03/01/25 13:50 SB Fingerstick Glucose Start: 03/01/25 13:49 Freq: .Q1H Status: Active Protocol: Activity Type Activity Date Activity User E-sign Co-sign Detail Recorded Client Recorded Date Recorded By Document 03/01/25 14:59 BKG DAEMON(3) [id number] 03/01/25 15:00 BKG DAEMON(4) Intake and Output - 24 Hour Total 03/01/25 13:36 thru 03/01/25 13:43 Weight 127.006 kg Falls Risk Assessment History of Falls Previous History 03/01/25 13:52 Contributing Factors Confusion 03/01/25 13:52 Ambulatory Aids Independent 03/01/25 13:52 Tubes/Lines W/no contributing factors 03/01/25 13:52 Gait Evaluation W/any additional score 03/01/25 13:52 Cognition No cognitive impairment 03/01/25 13:52 Fall Total Score 48 03/01/25 13:52 Level of Risk Moderate Risk 03/01/25 13:52 Problems (Last Reviewed 06/12/24 @ 10:00 by Cyndy Schilling DPM) Syncope (Chronic) Hypoglycemia due to insulin (Acute) v v v v v v v v v Sending and/or Receiving Nurses: Please use comment section below to note any information pertinent to the patient hand-off not included above. Information / Comments: Report received from: RULA rico'd report from [facility] ED @ 16:01
[2025-03-01 16:37] LABS: Creatine Kinase 154 U/L (39-308); Hemoglobin A1C 7.9 % (<5.7)
[2025-03-01 19:13] LABS: Troponin I 14 ng/L (<or=76)
[2025-03-01] MEDS: metFORMIN 500 MG TAB 1000 MG PO (20:05)
[2025-03-01] MEDS: Torsemide 20 MG TAB PO (20:05)
[2025-03-01] MEDS: Atorvastatin 40 MG TAB PO (20:07)
[2025-03-02 06:26] LABS: Abs Immature Grans 0.02 10^3/uL (0.0-0.06); HCT 35.9 % (40.0-50.0); Immature Grans % 0.3 %; MCH 29.9 pg (27.0-33.0); MCHC 33.4 % (32.0-36.0); MCV 90 fL (80-95); MPV 10.0 fL (8.0-11.0); Platelet Count 208 10^3/uL (130-400); RBC 4.01 10^6/uL (4.36-5.78); RDW 13.9 % (11.8-14.1); RDW-SD 45.5 fL; WBC 7.76 10^3/uL (4.4-10.8)
[2025-03-02 06:36] LABS: HGB 12.0 g/dL (13.5-17.5)
[2025-03-02 06:46] LABS: Anion Gap 11.0 mmol/L (3-11); BUN 34 mg/dL (7-18); CO2 26.0 mmol/L (21.0-32.0); Calcium 8.8 mg/dL (8.5-10.1); Chloride 100 mmol/L (98-107); Estimated GFR 51.99 (mL/min/1.73m2); Glucose 173 mg/dL (74-106); Potassium 4.0 mmol/L (3.5-5.1); Sodium 137 mmol/L (136-145)
[2025-03-02 07:35] VITALS: BP 117/70; PULSE 63; RESP 20; TEMP 36.8; O2SAT 96
[2025-03-02 08:07] LABS: Lab Add On Test COMPLETED
[2025-03-02] MEDS: Insulin Aspart 300 UNITS/3 ML PEN SC (08:29)
[2025-03-02] MEDS: Acetaminophen 325 MG TAB 650 MG PO (08:29)
[2025-03-02] MEDS: Normal Saline Flush 10 ML SYR IVP (08:30)
[2025-03-02] MEDS: metFORMIN 500 MG TAB 1000 MG PO (08:30)
[2025-03-02] MEDS: Empaglifozin 10 MG TAB PO (08:30)
[2025-03-02] MEDS: Torsemide 20 MG TAB PO (08:30)
[2025-03-02] MEDS: Insulin Glargine 300 UNITS/3 ML PEN 62 UNITS SC (09:38)
--- NOTE | 2025-03-02 11:35 | DSE_ITS ---
Date of service: 03/02/25 Time of Service: 11:35 DS: Diagnosis Discharge Diagnosis (1) Hypoglycemia due to insulin: Status: Acute (2) Type 2 diabetes mellitus with peripheral neuropathy: Status: Acute (3) COPD (chronic obstructive pulmonary disease): Status: Chronic (4) Hypertension: Status: Chronic (5) Obesity (BMI 30-39.9): Status: Acute (6) Hyperlipidemia: Status: Acute Discharge Plan Disposition Patient Disposition: Home Condition: Stable Discharge Details Reason For Visit: hypoglycemia Admit Date/Time: 03/01/25 14:56 Admit Provider: Sánchez Santiago Attending Provider: Sánchez Santiago Primary Care Provider: Jamilah Harman [facility] Hospital Course: This is a 64-year-old male patient with past medical history significant for diabetes mellitus type 2 COPD presented to the emergency department with an altered mental status found to be hypoglycemic with a blood sugar of 37. He received glucose replacement with full improvement in his symptoms. It was thought that he took his long-acting insulin double dosed but this was never confirmed. His workup in the emergency department showed no infection or acute medical condition other than the hypoglycemia. He was started on D5 and a half saline and admitted to observation on the medical surgical unit. He remained hemodynamically, labs unremarkable he was eating and drinking bowels and bladder functioning returned to his baseline. He stable for discharge to home. No medication changes have been advised he will closely monitor his blood sugars and see his primary care provider and follow-up Home Meds and New Rx's Prescriptions: Continued insulin glargine [Lantus Solostar U-100 Insulin] 100 unit/mL (3 mL) insulin pen 62 unit SUBCUT QPM torsemide 20 mg tablet 20 mg PO BID Jardiance 10 mg tablet 10 mg PO DAILY atorvastatin [Lipitor] 40 mg tablet 40 mg PO DAILY insulin aspart U-100 [Novolog PenFill U-100 Insulin] 100 UNIT/ML cartridge 1 sliding scale dose subcut DIRECTED Patient Comments: 07/26/18 sliding scale (DME) Dexcom G7 Sensor Device MISCELLANEOUS Patient Comments: CHANGE SENSOR EVERY 10 DAYS Trulicity 4.5 mg/0.5 mL pen injector 4.5 mg SUBCUT .WEEKLY Patient Comments: INJECT 4.5 MG UNDER THE SKIN ONCE WEEKLY metformin 1,000 mg tablet 1,000 mg PO BID Patient Comments: TAKE ONE TABLET BY MOUTH TWICE A DAY insulin aspart U-100 100 unit/mL (3 mL) insulin pen See Rx Instructions SUBCUT .COMPLEX Patient Comments: INJECT 25-35 UNITS UNDER THE SKIN PER SLIDING SCALE THREE TIMES A DAY Rx Instructions: 25-35 units subcutaneously; Discontinued lisinopril 20 mg tablet 20 mg PO DAILY Patient Comments: TAKE ONE TABLET BY MOUTH DAILY Discharge Instructions Instructions: Low Blood Sugar, Adult ED Additional Instructions: resume usual medications as directed check blood sugar before meals and bedtime. bring log to primary care provider for follow up appointment to discuss any medication adjustments drink 6-8 glasses of water daily or more to stay well hydrated. Stand Alone Forms: Nursing Discharge Form Referrals: Jamilah Harman MD [Primary Care Provider, Medicine] Referral Note: Please call your PCP office to set up a follow up appointment. Activity:: Activity as Tolerated Equipment/Supplies:: No Equipment Needed Diet:: Carb Counting Discharge Orders Discharge Orders: Discharge Order (Routine); Ordered 03/02/25 Ordered By: Debbie Valenzuela Discharge Data Discharge Date/Time-TO BE ENTERED AT DEPARTURE: 03/02/25 15:32 DS: Summary Time Spent with Patient providing and/or coordinating discharge services: Less than 30 minutes Status at Discharge Functional status at discharge: independent ambulation Overall status at discharge: patient is not back to baseline Mental Status: mental status grossly normal Speech and Movement: speech and movement normal Mood: congruent mood Affect: normal affect Exam Narrative Exam Narrative: Chronically ill-appearing male older than stated age no acute distress head is atraumatic eyes nonicteric noninjected oral mucosa is slightly dry neck full range of motion cardiovascular regular rate and rhythm respirations even and unlabored abdomen obese soft nontender moves all extremities trace edema skin no rashes or lesions neurologic he is awake alert oriented psychiatric blunted mood and affect Psych Mental Status: mental status grossly normal Speech and Movement: speech and movement normal Mood: congruent mood Affect: normal affect DS: Data Vitals/I&O Vitals and I&O: Vital Signs Temperature 36.8 C 03/02/25 07:35 Temperature Source Temporal Artery Scan 03/02/25 07:35 Pulse 63 03/02/25 07:35 Pulse Rhythm Regular 03/01/25 14:58 Pulse Strength Normal 03/01/25 14:58 Pulse 60 03/01/25 15:01 Respiratory Rate 20 03/02/25 07:35 Respiratory Effort Normal 03/01/25 17:18 Respiratory Depth Normal 03/01/25 17:18 Respiratory Pattern Normal 03/01/25 17:18 Blood Pressure 117/70 03/02/25 07:35 Blood Pressure Mean 85 03/02/25 07:35 Blood Pressure Position Sitting 03/01/25 14:58 Pulse Oximetry 96 03/02/25 07:35 Oxygen Delivery Method Room Air 03/02/25 07:35 Oxygen Flow Rate 0 03/02/25 07:35 Pain Level 8 03/02/25 08:29 Intake & Output 03/01/25 03/01/25 03/02/25 11:59 23:59 11:59 Intake Total 1000 / 1000 360 / 360 Output Total 700 / 700 1100 / 1100 Balance 300 / 300 -740 / -740 Weight 124.2 kg Intake: IV 1000 / 1000 Oral 360 / 360 Output: Urine 700 / 700 1100 / 1100 Other: Urine Color Yellow Yellow Urine Appearance Clear Clear Urine Odor Normal Stool Size Moderate Stool Characteristics Formed Brown Data Completed and Pending Labs on day of discharge: Labs from last 24 hours 03/02/25 03/02/25 03/01/25 06:17 06:12 16:45 WBC 7.76 RBC 4.01 L Hgb 12.0 L D Hct 35.9 L MCV 90 MCH 29.9 MCHC 33.4 RDW 13.9 Plt Count 208 MPV 10.0 Immature Gran % 0.3 Neutrophils % 69.1 Lymphocytes % 20.0 Monocytes % 7.0 Eosinophils % 2.6 Basophils % 1.0 Nucleated RBC % 0.0 Absolute Neutrophils 5.37 Absolute Lymphocytes 1.55 Absolute Monocytes 0.54 Absolute Eosinophils 0.20 Absolute Basophils 0.08 Sodium 137 Potassium 4.0 Chloride 100 Carbon Dioxide 26.0 Anion Gap 11.0 BUN 34 H Creatinine 1.5 H Est GFR (CKD-EPI 2020) 51.99 Glucose 173 H Hemoglobin A1c Calcium 8.8 Magnesium Total Bilirubin AST ALT Alkaline Phosphatase Creatine Kinase Troponin I 14 Total Protein Albumin Urine Color Urine Clarity Urine pH Ur Specific [place] Urine Protein Urine Ketones Urine Blood Urine Nitrite Urine Bilirubin Urine Urobilinogen Ur Leukocyte Esterase Urine RBC Urine WBC Ur Epithelial Cells Urine Crystals Urine Bacteria Urine Casts Urine Mucus Ur Culture Indicated? Urine Glucose Add-On Test Request 03/01/25 03/01/25 03/01/25 15:39 14:55 13:52 WBC 10.03 RBC 4.77 Hgb 14.5 Hct 43.3 MCV 91 MCH 30.4 MCHC 33.5 RDW 13.7 Plt Count 242 MPV 9.8 Immature Gran % 0.5 Neutrophils % 80.0 Lymphocytes % 9.9 Monocytes % 7.8 Eosinophils % 1.2 Basophils % 0.6 Nucleated RBC % 0.0 Absolute Neutrophils 8.03 H Absolute Lymphocytes 0.99 L Absolute Monocytes 0.78 Absolute Eosinophils 0.12 Absolute Basophils 0.06 Sodium 140 Potassium 3.6 Chloride 102 Carbon Dioxide 28.4 Anion Gap 9.6 BUN 38 H Creatinine 1.4 H Est GFR (CKD-EPI 2020) 56.48 Glucose 103 Hemoglobin A1c 7.9 H Calcium 9.8 Magnesium 1.8 Total Bilirubin 0.6 AST 33 ALT 65 H Alkaline Phosphatase 159 H Creatine Kinase 154 Troponin I 10 11 Total Protein 9.0 H Albumin 4.4 Urine Color Yellow Urine Clarity Clear Urine pH 5.5 Ur Specific [place] 1.015 Urine Protein 30 H Urine Ketones Negative Urine Blood Trace-intact H Urine Nitrite Negative Urine Bilirubin Negative Urine Urobilinogen 0.2 Ur Leukocyte Esterase Negative Urine RBC 0-2 Urine WBC Negative Ur Epithelial Cells Negative Urine Crystals Negative Urine Bacteria Negative Urine Casts Negative Urine Mucus Negative Ur Culture Indicated? No Urine Glucose >=1000 H Add-On Test Request COMPLETED PFS All Active Problems Hyperlipidemia (Acute) Obesity (BMI 30-39.9) (Acute) Hypertension (Chronic) Syncope (Chronic) Hypoglycemia due to insulin (Acute) Long toenail (Acute) Peripheral neuropathy (Acute) Type 2 diabetes mellitus with peripheral neuropathy (Acute) Ischemic ulcer of right foot with fat layer exposed (Acute) Ulcer of right foot with fat layer exposed (Acute) Osteomyelitis of great toe of right foot (Acute) COPD (chronic obstructive pulmonary disease) (Chronic) Acute osteomyelitis of right ankle or foot (Acute) Cellulitis of foot, right (Acute) Diabetic foot ulcer (Acute) Head injury (Acute) Elevated serum creatinine (Acute) Weakness (Acute) Altered behavior (Acute) Sinusitis (Acute) 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 Low back pain (Chronic) Tobacco abuse (Chronic) Stage 2 moderate COPD by GOLD classification (Chronic) Diabetes with retinopathy (Chronic) Diabetes mellitus (Chronic) Tendonitis of left rotator cuff (Acute) Subacromial injection: 11/05/18 Status post cataract extraction and insertion of intraocular lens of left eye (Chronic 08/13/18) Status post cataract extraction and insertion of intraocular lens of right eye (Chronic 07/30/18) Medical History Obesity (BMI 30-39.9) Hx of falling Obesity Rotator cuff syndrome of right shoulder Learning disability Leg edema Diabetic retinopathy Chronic eczematoid otitis externa of right ear Impacted cerumen, right ear Eructation Carpal tunnel syndrome, bilateral Obstructive sleep apnea Hyperlipidemia Hypertension Cortical cataract of left eye Nuclear sclerotic cataract of left eye Cortical cataract of right eye Nuclear sclerotic cataract of right eye Family History Father Diabetes Social History Smoking/Tobacco Use Status: Current every day Tobacco Type: cigarettes Smoking risk assessment performed?: Yes Alcohol Intake: former Drug use: Rarely Substance use type: marijuana Housing: apartment Do you feel safe at home: Yes Do you feel safe in your relationship?: Yes Time Spent with Patient Time Spent with Patient: 45-69 minutes Time was spent: preparing to see the patient(eg.review tests), obtaining and/or reviewing separately otained hiistory, ordering medications,tests, procedures, indepentently interpreting results and counseling the patient
--- NOTE | 2025-03-02 16:58 | PDOC.CMIN ---
Date of service: 03/02/25 Time of Service: 16:58 Care Management Initial Assmt Initial Assessment Reason for Hospitalization: hypoglycemia Functional Status/Living Situation Patient Presentation: Jamie was sitting up on the edge of his bed when CM met with him. He stated that he is being discharged, and his ride is on the way. He reported that he lives in an apartment in [facility], alone, and that his lives in [place]. They were almost a year ago, but due to the conditions of his lease, she can't move in with him. He stated that he will either move in with her, or she will be added to his lease, although he would prefer to live in [place]. He stated that he had lived at the residential for almost a year before getting the apartment he is in now. He stated that his has the keys to his apartment, so she will be bringing them with her. Jamie reported that he is on disability, and doesn't drive, but is otherwise independent in the community. CM will continue to follow. Town of Residence: [place] Resides with: Alone Significant Other/Family: Local Natural Supports: , [employer] Employment Status: Disabled Instrumental Activities of Daily Living (ADLs): Independent Medications Medication Management: No Issues/Barriers identified Advance Directives Advance Directives: Do you have an Advance Directive: N 08/23/21, 13:45 AD On File at [facility]: N 08/23/21, 13:45 Date Asked 03/01/25 03/01/25, 14:33 AD Date Reviewed COLST On File at [facility] No 09/15/23, 19:50 COLST Date Scanned Code Status Full code Insurance Coverage/Financial Issues Insurance: [facility] Care Team Visit Care Team Role Provider Type Debbie Valenzuela NP NURSE PRACTITIONER Jamilah Harman MD Primary Care Provider [facility] STAFF PHYSICIAN Laura Zaragoza RDN, CDCES Other Providers SOLAR SITE ASSESSMENT SPECIALISTJAYSON Villalba RDN Other Providers SOLAR SITE ASSESSMENT SPECIALIST Roya Shetty NP Emergency Provider NURSE PRACTITIONER Sánchez Santiago MD Admit Provider [facility] STAFF PHYSICIAN Attending Provider Discharge Potential Discharge Needs: PCP F/U Appt Anticipated Barriers to Discharge: None Identified Patient/Family Education Needs: Review discharge instructions, discuss Ask Me Three Transportation: Private vehicle Plan: Jamie will return home with no new services. He will be driven home via private vehicle by family. He will follow up with his PCP and discharge plan of care. CM will continue to follow. Social Determinants of Health Screening Social Determinants of health last assessed in clinic: 03/02/25 Will the Patient Participate in the Screening?: Yes Do you worry about having a steady place to live?: no Problems where you live: no known problems In the past 12 months, have you had to go without electric, gas, oil or water in your home?: no 1. Within the past 12 months, we worried whether our food would run out before we got money to buy more.: Don't know/refused 2. Within the past 12 months, the food we bought just didn't last and we didn't have money to get more.: Don't know/refused Has lack of transportation kept you from medical appointments or from doing things needed for daily living?: no Has anyone in your life made you feel unsafe or unsupported?: no How hard is it for you to pay for the very basics like food, housing, medical care, and heating? Would you say it is:: Not hard at all Do you want help finding or keeping work or a job?: I do not need or want help If for any reason you need help with day-to-day activities such as bathing, preparing meals, shopping, managing finances, etc., do you get the help you need?: I don?t need any help How often do you feel lonely or isolated from those around you?: Never Do you speak a language other than Polish at home?: No Does the patient want assistance with any of the above?: No PFSH All Active Problems Hyperlipidemia (Acute) Obesity (BMI 30-39.9) (Acute) Hypertension (Chronic) Syncope (Chronic) Hypoglycemia due to insulin (Acute) Long toenail (Acute) Peripheral neuropathy (Acute) Type 2 diabetes mellitus with peripheral neuropathy (Acute) Ischemic ulcer of right foot with fat layer exposed (Acute) Ulcer of right foot with fat layer exposed (Acute) Osteomyelitis of great toe of right foot (Acute) COPD (chronic obstructive pulmonary disease) (Chronic) Acute osteomyelitis of right ankle or foot (Acute) Cellulitis of foot, right (Acute) Diabetic foot ulcer (Acute) Head injury (Acute) Elevated serum creatinine (Acute) Weakness (Acute) Altered behavior (Acute) Sinusitis (Acute) 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 Low back pain (Chronic) Tobacco abuse (Chronic) Stage 2 moderate COPD by GOLD classification (Chronic) Diabetes with retinopathy (Chronic) Diabetes mellitus (Chronic) Tendonitis of left rotator cuff (Acute) Subacromial injection: 11/05/18 Status post cataract extraction and insertion of intraocular lens of left eye (Chronic 08/13/18) Status post cataract extraction and insertion of intraocular lens of right eye (Chronic 07/30/18) Medical History Obesity (BMI 30-39.9) Hx of falling Obesity Rotator cuff syndrome of right shoulder Learning disability Leg edema Diabetic retinopathy Chronic eczematoid otitis externa of right ear Impacted cerumen, right ear Eructation Carpal tunnel syndrome, bilateral Obstructive sleep apnea Hyperlipidemia Hypertension Cortical cataract of left eye Nuclear sclerotic cataract of left eye Cortical cataract of right eye Nuclear sclerotic cataract of right eye Family History Father Diabetes Social History Smoking/Tobacco Use Status: Current every day Tobacco Type: cigarettes Smoking risk assessment performed?: Yes Alcohol Intake: former Drug use: Rarely Substance use type: marijuana Housing: apartment Do you feel safe at home: Yes Do you feel safe in your relationship?: Yes
--- NOTE | 2025-03-02 17:04 | PDOC.CMDIS ---
Date of service: 03/02/25 Time of Service: 17:04 LACE Index Scoring Tool Questions: Length of Stay (in days): 1 Was the patient admitted via the E.D.?: Yes Comorbidities: Diabetes w/o Complication and Chronic Pulmonary Disease E.D. Visits: 0 Answers: Total Score: 7 Risk of Readmission: Low Risk Care Management Discharge Plan Reason for Hospitalization: hypoglycemia Discharge Plan: Jamie returned home today with no new services. He was driven home via private vehicle by family. He will follow up with his PCP and discharge plan of care. Patient/Family Education Needs: Review discharge instructions and limitations, discussion of self care needs including ask me three.
== END 2025-03-02 15:32 | disposition home or self-care (01) ==
LOC: ER 15:10 → MS 16:41
PROVIDERS: Admitting Provider Family Medicine; Emergency Provider Registered Nurse Emergency; PCP Family Medicine; Responsible Provider Nurse Practitioner Acute Care; Visit Provider Family Medicine
DX: E11.649 Type 2 diabetes mellitus with hypoglycemia without coma (principal); T38.3X5A Adverse effect of insulin and oral hypoglycemic [antidiabetic] drugs, initial encounter; E11.42 Type 2 diabetes mellitus with diabetic polyneuropathy; J44.9 Chronic obstructive pulmonary disease, unspecified; I10 Essential (primary) hypertension; E66.9 Obesity, unspecified; E78.5 Hyperlipidemia, unspecified; Z68.39 Body mass index [BMI] 39.0-39.9, adult; N18.9 Chronic kidney disease, unspecified; E11.22 Type 2 diabetes mellitus with diabetic chronic kidney disease; I12.9 Hypertensive chronic kidney disease with stage 1 through stage 4 chronic kidney disease, or unspecified chronic kidney disease; E11.319 Type 2 diabetes mellitus with unspecified diabetic retinopathy without macular edema; F17.210 Nicotine dependence, cigarettes, uncomplicated; Z79.4 Long term (current) use of insulin; Z79.85 Long-term (current) use of injectable non-insulin antidiabetic drugs; Z79.84 Long term (current) use of oral hypoglycemic drugs
CPT/HCPCS: 00123; 36415; 36416; 80048; 80053; 82550; 82962; 93005; 96360; 96361; 99285; 81003; 81015; 83036; 83735; 84484; 85025; 93010; 99222; 99239; G0378; J1815